=== PATIENT | male | born 1945 | race Hispanic/Latino ===

== ENCOUNTER 2021-03-21 10:48 | Emergency (ER) | payer OTHER ==
--- OUTSIDE RECORDS SUMMARY | 2021-03-21 10:56 | XMS REPORT | Continuity of Care Document ---
:1945 Author Organization [facility] t Address [address] [place] [address] Care Team Providers Name Role Phone Provider Primary Care Physician Unavailable RICK Attending Clinician Unavailable DR AMBAR Attending Clinician Unavailable DR KSENIA Attending Clinician Unavailable DR ADRIANNA Attending Clinician Unavailable DR Tyrone HAMPTON Attending Clinician Unavailable REGINA Attending Clinician Unavailable DR ERIC Attending Clinician Unavailable Tin LYNN TPhyllis Attending Clinician Christ Johnson Attending Clinician Unavailable Declan Britt MD Attending Clinician DR AMBAR Attending Clinician Unavailable Blaise Walker MA Attending Clinician Unavailable DR Aric TRACY Attending Clinician Unavailable DR RIYA Attending Clinician Unavailable DR KHALIDA Attending Clinician Unavailable DR Deborah SHAFFER Attending Clinician Unavailable DR LAKESHIA Attending Clinician Unavailable DR STEVE Attending Clinician Unavailable DR AREN Attending Clinician Unavailable DR CHERRI Attending Clinician Unavailable DR Mayda VILLALTA Attending Clinician Unavailable DR ALICE Attending Clinician Unavailable DR Selin RESTREPO Attending Clinician Unavailable DR AMBAR Admitting Clinician Unavailable KSENIA, Admitting Clinician Unavailable ADRIANNA, Admitting Clinician Unavailable DR Tyrone HAMPTON Admitting Clinician Unavailable , Admitting Clinician Unavailable AMBAR, Admitting Clinician Unavailable DR Aric TRACY Admitting Clinician Unavailable RIYA, Admitting Clinician Unavailable KHALIDA, Admitting Clinician Unavailable EDMUND, DR Cabrera Admitting Clinician Unavailable LAKESHIA, Admitting Clinician Unavailable STEVE, Admitting Clinician Unavailable AREN, Admitting Clinician Unavailable CHERRI, Admitting Clinician Unavailable AMBAR, DR Ohara Admitting Clinician Unavailable ALICE, Admitting Clinician Unavailable LAURO, DR Smallwood Admitting Clinician Unavailable Payers Payer Name Policy Type Policy Number Effective Date Expiration Date S ruth [facility] MEDICARE [id number] 2020 ADVANTAGE 00:00:00 UHC MEDICAREUHC [id number] 2020 [place] MEDICARE 00:00:00 [facility] [id number] /11/2020-PresentHM O [facility] [id number] [address] [facility] - - MEDICARE MGD 00:00:00 Medical Ce nter CAREUNITED MEDICARE [id number] 021-Present Problems Condition Condition Condition Status Onset Resolution Last Treating Co mments Source Name Details Category Date Date Treatment Clinician Date Bilateral Bilateral Disease Active [facility] - osteoarthr osteoarthr 00:00: Me dical itis of itis of 00 Center knee knee 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 Added automatic ally from request for surgery [id number] Arthritis Arthritis Problem Active [facility] knee of [facility] [place] [facility] ans Allergies, Adverse Reactions, Alerts Allergy Allergy Status Severity Reaction(s) Onset Inactive Treating Comm ents Source Name Type Date Date Clinician Acetusama Herrmannensi Active Itching, [place] ophen-Co ty to Swelling 12-05 Method i deine adverse 00:00: st reaction 00 s to drug Ibuprofe Drug Active Rash [facility] Allergy 11-14 [facility] - 00:00: Medical 00 Center Iodine Propensi Active Rash [place] ty to 11-22 Methodi adverse 00:00: st reaction 00 s to drug Iodine Drug Active Rash [facility] Allergy 11-22 [facility] - 00:00: Medical 00 Center Ibuprofe Allergy Active [place] [facility] Iodine Allergy Active [place] [facility] Tylenol- Allergy Active [place] codeine to da [facility] Family History Family Member Diagnosis Comments Start Date Stop Date Source Natural father Heart disease [place] [facility] Social History Social Habit Start Date Stop Date Quantity Comments Source History of tobacco Snuff User [place] [facility] Alcohol Std Drinks History [facility] odist Alcohol Binge Alcohol intake 2020-12-05 2020-12-05 Current [facility] thodist 00:00:00 00:00:00 non-drinker of alcohol (finding) Tobacco use and 2020-12-05 2020-12-[address] [facility] ethodist exposure 00:00:00 00:00:00 Alcohol Comment 2020-11-14 2020-11-14 social [facility] kes - 00:00:00 00:00:00 Medical Center History SDOH 2019-01-12 2019-01-12 1 [place] Meth odist Alcohol Frequency 00:00:00 00:00:00 Sex [birth year] At [birth year] [place] [facility] ethodist 00:00:00 00:00:00 Smoking Status Start Date Stop Date Source Former smoker 2020-12-05 00:00:00 2020-12-05 00:00:00 [place] [facility] Never smoker [facility]ations Ordered Filled Start Stop Current Ordering Indication Dosage Frequency Signature Comments Components Source Medication Medication Date Date Medication? Clinician (SIG) Name Name traMADol traMADol Yes REUBEN TAKE 1 U nivers HCl - 50 MG HCl - 50 MG 3-19 REGINA TABLET ity of Oral Tablet Oral Tablet 00:00: M.D. EVERY 4 TO [place] 00 6 HOURS Physici NEEDED. ans gabapentin 2020- No 100mg [id number] Take [address] [address] (NEURONTIN) 11-15 [id number] capsule [facility] - 100 MG 00:00: 23:59 3D (100 mg Medical capsule 00 :00 total) by Center mouth 3 (three) times daily for 30 days. traMADoL 2020- No 50mg Take [address] [facility] (ULTRAM) 50 11-15 tablet (50 L ukes - mg tablet 00:00: 23:59 mg total) Me dical 00 :00 by mouth Center every 8 (eight) hours as needed for Pain for up to 7 days. Max Daily Amount: 150 mg tamsulosin Yes .4mg QD Take 0.[address] [facility] (FLOMAX) 1-07 mg by [facility] - 0.4 mg Cap 11:01: mouth Medica l 24 hr 52 daily. Center capsule traMADoL 2020- No 50mg Take [address] [facility] (ULTRAM) 50 11-14 tablet (50 L ukes - mg tablet 00:00: 00:00 mg total) Me dical 00 :00 by mouth Center every 8 (eight) hours as needed for Pain for up to 7 days. Max Daily Amount: 150 mg gabapentin 2020- No 100mg [id number] Take [address] [facility] (NEURONTIN) 11-14 [id number] capsule [facility] - 100 MG 00:00: 00:00 3D (100 mg Medical capsule 00 :00 total) by Center mouth 3 (three) times daily for 30 days. tamsulosin Yes TAKE ONE Radha ston (FLOMAX) 1-25 (1) Methodi 0.4 mg 00:00: CAPSULE(S) st capsule 00 BY MOUTH TWICE A DAY. ibuprofen ibuprofen No ibuprofen [place] 600 mg 600 mg 600 mg da tablet TAKE tablet TAKE tablet Medical ONE (1) ONE (1) TAKE ONE Group TABLET(S) TABLET(S) (1) BY MOUTH BY MOUTH TABLET(S) THREE TIMES THREE TIMES BY MOUTH A DAY WITH A DAY WITH THREE FOOD. FOOD. TIMES A DAY WITH FOOD. Medrol Medrol No 1dose Medrol [place] (Michelet) 4 mg (Michelet) 4 mg pk(s) (Michelet) 4 mg da tablets in tablets in tablets in Medical a dose pack a dose pack a dose Group Take 1 dose Take 1 dose pack Take pk by oral pk by oral 1 dose pk route. route. by oral route. tramadol 50 tramadol 50 No tramadol [place] mg tablet mg tablet 50 mg da TAKE ONE TAKE ONE tablet Medic al (1) OR TWO (1) OR TWO TAKE ONE Group (2) (2) (1) OR TWO TABLET(S) TABLET(S) (2) BY MOUTH BY MOUTH TABLET(S) EVERY SIX EVERY SIX BY MOUTH HOURS HOURS EVERY SIX NEEDED FOR NEEDED FOR HOURS PAIN. PAIN. NEEDED FOR PAIN. Vital Signs Vital Name Observation Time Observation Value Comments Source BP Diastolic 2020-10-15 00:00:00 83 mm[Hg] [facility] Height 2020-10-15 00:00:00 68 [in_i] [facility] BMI (Body Mass 2020-10-15 00:00:00 28.3 kg/m2 [facility] Medical Index) Group BP Systolic 2020-10-15 00:00:00 141 mm[Hg] [facility] Body Weight 2020-10-15 00:00:00 186 [lb_av] [facility] Systolic blood 2020-12-05 19:23:29 145 mm[Hg] [place] n [facility] pressure Diastolic blood 2020-12-05 19:23:29 92 mm[Hg] Yonatan on [facility] pressure Heart rate 2020-12-05 19:23:29 91 /min Nirmal Moon Body temperature 2020-12-05 19:23:29 37 Lucille Benjie ton [facility] Respiratory rate 2020-12-05 19:23:29 18 /min Benjie Moon Oxygen saturation in 2020-12-05 19:23:29 95 /min Nirmal Moon Arterial blood by Pulse oximetry Systolic blood 2020-11-14 11:00:00 138 mm[Hg] [facility] Diastolic blood 2020-11-14 11:00:00 79 mm[Hg] [facility] S [facility] Heart rate 2020-11-14 11:00:00 82 /min [facility] Body temperature 2020-11-14 11:00:00 36.78 [facility] Body height 2020-11-14 11:00:00 172.7 cm [facility] Body weight 2020-11-14 11:00:00 83.462 kg [facility] BMI 2020-11-14 11:00:00 27.98 kg/m2 [facility] Procedures Procedure Date / Time Performed Performing Clinician Sour e XR KNEE 1 OR 2 VW 2020-12-05 20:56:10 Casandra Martinez [facility] RIGHT XR KNEE 3 VIEWS RIGHT 2020-11-14 11:21:[address] [facility] Plan of Care Planned Activity Planned Date Details Comments Source Future Scheduled 2021-06-08 INFLUENZA VACCINE [place] [facility] Test 00:00:00 [code = INFLUENZA VACCINE] Future Scheduled 2020-11-[address] [facility] - Test 00:00:00 (12+) [code = [facility] DEPRESSION SCREENING (12+)] Future Scheduled 2020-07-09 INFLUENZA VACCINE (#1) [facility] Test 00:00:00 [code = INFLUENZA Medical Ce nter VACCINE (#1)] Future Scheduled 2011 65+ PNEUMOCOCCAL [place] [facility] Test 00:00:00 VACCINE (1 of 1 - PPSV23) [code = 65+ PNEUMOCOCCAL VACCINE (1 of 1 - PPSV23)] Future Scheduled 2011 PNEUMOCOCCAL 65+ YRS [facility] - Test 00:00:00 (1 of 1 - [facility] [id number] PCV13) [code = PNEUMOCOCCAL 65+ YRS (1 of 1 - [id number] PCV13)] Future Scheduled 1996 COLONOSCOPY SCREENING [place] [facility] Test 00:00:00 [code = COLONOSCOPY SCREENING] Future Scheduled 1996 SHINGLES VACCINES (#1) H iw[place] [facility] Test 00:00:00 [code = SHINGLES VACCINES (#1)] Future Scheduled 1996 SHINGLES VACCINES ([address] [facility] - Test 00:00:00 of 2) [code = SHINGLES Medic al Center VACCINES (1 of 2)] Future Scheduled 1965 DTAP/TDAP/TD VACCINES [facility] - Test 00:00:00 (1 - Tdap) [code = Medical C enter DTAP/TDAP/TD VACCINES (1 - Tdap)] Future Scheduled 1964 Hepatitis C screening [place] [facility] Test 00:00:00 (procedure) [code = 128723129] Future Scheduled 1964 HEPATITIS C SCREENING [facility] - Test 00:00:00 [code = HEPATITIS C Medical Center SCREENING] Future Scheduled 1962 COVID-19 VACCINE (1) Radha ston [facility] Test 00:00:00 [code = COVID-19 VACCINE (1)] Future Scheduled [address] [facility] es - Test 00:00:00 malignant [facility] colon (procedure) [code = 081855233] Encounters Start End Encounter Admission Attending Care Care Encounter Source Date/Time Date/Time Type Type Clinicians Facility Department ID 2021-03-15 [id number] [place] 03:18:11 [facility] 2020-09-23 Inpatient C VILLALTA, [facility] [id number] [facility] 09:29:00 YOLY [facility] 2020-07-29 Inpatient C KSENIA [facility] [id number] [place] 09:30:00 , SMITHA [facility] 2020-07-17 Inpatient C CARLTON RODAS [facility] [id number] [facility] 09:00:00 Medical [place] 2021-03-06 2021-03-06 Outpatient E BERTA [facility] [id number] [facility] 12:30:00 13:15:00 REUBEN Medica l [place] 2021-01-24 2021-01-24 AppointSYD [facility] [id number] [facility] 11:30:00 11:30:00 sal ALEXIS [facility] renetta TAPIA M.D. [place] ALEXIS Orthopedic [facility] 2021-01-09 2021-01-09 Outpatient E , [facility] [id number] [facility] 14:17:00 14:17:00 WASIM Medica l [place] 2020-12-05 2020-12-05 Emergency [facility] [id number] [place] 00:00:00 00:00:00 ANGELA [address] 2020-10-30 2020-10-30 Outpatient E AMBAR, [facility] [id number] [facility] 16:54:00 17:50:00 ADELIA Medica l [place] 2020-10-19 2020-10-19 Outpatient E BERTA, [facility] [id number] [facility] 16:38:00 17:58:00 REUBEN Medica l [place] 2020-10-15 2020-10-15 [facility] - [id number] M at[place]or 00:00:00 00:00:00 Discovery fallon Velazquez MD: [address] [place] [address] Group [facility] - [address], [place] [address] , Ph. 2020-10-10 2020-10-10 Outpatient E DEMARCUS, [facility] [id number] [facility] 09:29:00 10:25:00 ZURI Medica [facility] [place] 2020-09-30 2020-09-30 Outpatient E VANESSA RITTER [facility] [id number] [facility] 15:29:00 16:16:00 Medica l [place] 2020-09-09 2020-09-09 Outpatient C CARLTON RODAS [facility] [id number] [facility] 10:52:00 10:52:00 Medica l Center 2020-08-27 2020-08-27 Outpatient E KHALIDA ALTAF [facility] [id number] [facility] 06:54:00 09:20:00 Medica l Center 2020-08-23 2020-08-23 Outpatient E DEMARCUS, [facility] [id number] [facility] 17:25:00 18:55:00 ZURI Medica l [place] 2020-08-18 2020-08-18 Outpatient C KSENIA [facility] [id number] [facility] 09:55:00 23:59:00 [facility] 2020-08-05 Outpatient E EDMUND [facility] [id number] [facility] 12:22:00 12:40:00 AUDRA [facility] 2020-07-25 2020-07-25 Outpatient E GILLIAN ASHER [facility] [id number] [facility] 17:09:00 17:35:00 Medica [facility] 2020-07-16 2020-07-16 Outpatient E GAXIOLAALTAF Guillen [facility] [id number] [facility] 22:52:00 23:59:00 Medica [facility] 2020-06-05 2020-06-05 Outpatient E BA, VANESSA [facility] [id number] [facility] 16:30:00 18:28:00 Medica [facility] 2020-05-21 2020-05-21 Outpatient E WILSONPATRICIA [facility] [id number] [facility] 23:05:00 23:50:00 Medica [facility] 2020-05-08 2020-05-08 Outpatient E GILLIAN ASHER [facility] [id number] [facility] 01:22:00 06:18:00 Medica [facility] 2020-05-03 2020-05-03 Outpatient E TONYABBEYSegundo [facility] [id number] [facility] 11:20:00 11:45:00 HASAN Medica [facility] 2020-03-13 2020-03-13 Outpatient E ALTAF GAXIOLA [facility] [id number] [facility] 17:01:00 18:28:00 Medica [facility] 2020-02-08 2020-02-08 Outpatient C IOANA HARLEY [facility] [id number] [facility] 08:10:00 23:59:00 Medica l [place] 2020-01-25 2020-01-25 Outpatient E STEVE PATRICIA [facility] [id number] [facility] 16:57:00 18:48:00 Medica [facility] 2020-01-03 2020-01-03 Outpatient E TRISTA VILLALTA [facility] [id number] [facility] 12:57:00 14:29:00 Medica l [place] 2019-11-07 2019-11-07 Outpatient E BA, VANESSA [facility] [id number] [facility] 07:30:00 09:44:00 Medica l [place] 2019-10-31 2019-11-02 Outpatient E JENKINS, [facility] TELE [id number] [facility] 14:22:00 19:25:00 YAJAIRA Medic al [place] 2019-10-03 2019-10-03 Outpatient E SHEIKH [facility] [id number] [facility] 14:58:00 15:56:00 WASIM Medica [facility] [place] 2019-08-20 2019-08-20 Outpatient E TRACY, [facility] [id number] [facility] 10:26:00 10:48:00 ZURI [facility]ica [facility] [place] 2019-08-18 2019-08-18 Outpatient E AMBAR [facility] [id number] [facility] 11:35:00 12:35:00 ADELIA [facility]ica [facility] [place] 2019-08-06 2019-08-06 Outpatient E KHALIDA ALTAF [facility] [id number] [facility] 13:41:00 14:07:00 Medica l [place] 2019-07-14 2019-07-14 Emergency E TRISTA VILLALTA [facility] [id number] [facility] 15:17:00 16:00:00 Medica l [place] 2019-07-03 2019-07-05 Outpatient E JENKINS, [facility] TELE [id number] [facility] 18:54:00 13:04:00 YAJAIRA Medic al [place] 2019-06-02 2019-06-02 Outpatient E LAURO, [facility] [id number] [facility] 17:20:00 20:15:00 ROBERT [facility]ica [facility] [place] 2019-06-01 2019-06-02 Outpatient E REYES, [facility] [id number] [facility] 23:13:00 00:40:00 WAS Medica [facility] [place] 2019-04-16 2019-04-18 Outpatient E CHERRI BRANDYLEONID [facility] TELE [id number] [facility] 22:30:00 10:18:00 Medica l Center 2019-04-12 2019-04-12 Outpatient E TRISTA VILLALTA [facility] [id number] [facility] 09:42:00 10:50:00 Medica l Center 2019-03-30 2019-03-30 Outpatient E KHALIDA ALTAF [facility] [id number] [facility] 19:53:00 20:20:00 Medica l Center 2019-03-14 2019-03-14 Outpatient E BA, VANESSA [facility] [id number] [facility] 01:52:00 02:47:00 Medica [facility] 2019-03-02 2019-03-03 Outpatient E IOANA HARLEY [facility] TELE [id number] [facility] 17:04:00 14:38:00 Medica [facility] 2019-01-30 2019-01-30 [facility] E [facility] [id number] [facility] 14:37:00 16:18:00 Medica [facility] 2019-01-12 2019-01-12 Outpatient E BA, VANESSA [facility] [id number] [facility] 17:07:00 19:30:00 [facility] 2018-12-16 2018-12-16 Outpatient E VILLALTATRISTA [facility] [id number] [facility] 15:29:00 17:11:00 [facility] 2018-12-06 2018-12-06 Outpatient C IOANA HARLEY [facility] [id number] [facility] 10:34:00 23:59:00 [facility] 2018-11-30 2018-11-30 Outpatient E AMBAR [facility]CC [id number] [facility] 13:14:00 14:05:00 [facility] 2018-11-29 2018-11-29 Outpatient E AMBAR [facility] [id number] [facility] 09:19:00 12:15:00 [facility] 2018-11-25 2018-11-25 Outpatient E BA, VANESSA [facility] [id number] [facility] 16:27:00 18:00:00 Medica [facility] 2018-11-12 2018-11-12 Outpatient E TRISTA VILLALTA [facility] [id number] [facility] 11:12:00 15:15:00 Medica [facility] 2018-11-07 2018-11-10 Inpatient E IOANA HARLEY [facility] TELE [id number] [facility] 14:45:00 16:31:00 Medica l [place] 2018-10-30 2018-10-30 Outpatient E ALTAF GAXIOLA [facility] [id number] [facility] 19:27:00 20:36:00 Medica l [place] 2018-09-03 2018-09-03 Outpatient E SHEIKH [facility] [id number] [facility] 11:42:00 13:00:00 WASIM Medica [facility] [place] 2018-08-20 2018-08-20 Outpatient E DEMARCUS, [facility] [id number] [facility] 18:47:00 20:45:00 ZURI Medica l [place] 2018-07-24 2018-07-25 Outpatient E TRISTA VILLALTA [facility] [id number] [facility] 22:53:00 02:40:00 Medica [facility] 2018-07-22 2018-07-22 Outpatient E VANESSA RITTER [facility]CC [id number] [facility] 11:36:00 14:30:00 Medica l [place] 2018-06-23 2018-06-24 Outpatient E IOANA HARLEY [facility] TELE [id number] [facility] 13:40:00 17:45:00 [facility] Results Test Description Test Time Test Comments Results Result Comments Source [facility] 8 Panel *OW* giovanni 2021-03-06 13:12:00 Test Item Value Reference Range Interpretation Comme nts GLUCOSE (test code = GGUL) 129 mg/dL 73-118 H BUN (test code = GBUN) 11 mg/dL 7-22 CREATININE (test code = GCRE) 0.7 mg/dL 0.6-1.2 CK TOTAL (test code = GCK) 80 U/L 39-380 SODIUM (test code = GNA+) 138 mmol/L 128-145 POTASSIUM (test code = GK+) 3.8 mmol/L 3.6-5.1 CHLORIDE (test code = GCL-) 112 mmol/L 98-108 H TCO2 (test code = GTC02) 28 mmol/L 18-33 CBC (INCLUDES AUTOMATED DIFFERENTIAL) *2021-03-06 13:03:00 Test Item Value Reference Range Interpretation Comments WBC (test code = WBC) 5.1 10\\S\\3/uL 9.4-34.0 L RBC (test code = RBC) 4.69 10\\S\\6/uL 3.90-5.50 HGB (test code = HBG) 13.8 g/dL 14.5-22.5 L HCT (test code = HCT) 43.2 % 45.0-67.0 L MCV (test code = MCV) 92.1 fL 95.0-121.0 L MCH (test code = MCH) 29.4 pg 25.0-35.0 MCHC (test code = MCHC) 31.9 g/dL 29.0-37.0 RDW (test code = RDW) 13.7 % 11.5-14.5 PLT (test code = PLT) 209 10\\S\\3/uL 84-474 MPV (test code = OMPV) 8.1 fL 6.2-10.2 NEUTROP # (test code = NE#) 2.6 10\\S\\3/uL 1.4-8.0 LYMPH # (test code = LY#) 2.1 10\\S\\3/uL 1.2-4.0 MID # (test code = GMID#) 0.4 10\\S\\3/uL 0.0-1.1 GRAN % (test code = GRA%) 51.2 % 35.0-73.0 LYMPH % (test code = GLY%) 41.0 % 20.0-55.0 MID % (test code = GMID%) 7.8 % 0.0-10.0 [U] XRAY KNEE 4 OR MORE VWS RIGHT [id number] 12:01:00Images acquired, not reported on this accession number.[facility] Knee 1 Or 2 Vw [id number] 20:59:39Hm Interface, Radiology Results Incoming - 12/05/2020 9:02 PM CST EXAMINATION: XR KNEE 1 OR 2 VW RIGHTCLINICAL HISTORY: knee pain medialCOMPARISON: None.IMPRESSION:1.There is no evidence of fracture or acute osseous pathology.2.Mild to moderate osteoarthritis consists of moderate lateral and patellofemoral joint space loss with mild medial joint space loss and minimal osteophytosis.RM-MPHYDWLHouston MethodistXR knee 3 views right 2020-11-14 11:21:00Mild osteoarthritis bilateral knees.Standing PA, lateral patellofemoral view of the right knee is reviewed.On the standing PA view, there is medial joint space narrowing on the left knee with subchondral sclerosis. On the right knee there is some mild subchondral sclerosis and some mild joint space narrowing both medially and laterally.There is some osteopenia noted. There is no fracture or dislocation seen. The soft tissues are unremarkable. He may have slight valgus of the right knee in slight varus of the left knee consistent with a windswept deformity that is developing earlyCH[facility] 13 *OW* [id number] 07:32:00 Test Item Value Reference Range Interpretation Comments GLUCOSE (test code = GGUL) 113 mg/dL 73-118 BUN (test code = GBUN) 14 mg/dL 7-22 CREATININE (test code = GCRE) 0.7 mg/dL 0.6-1.2 URIC ACID (test code = GUA) 4.7 mg/dL 3.6-8.0 CALCIUM (test code = GCL+) 9.0 mg/dL 8.0-10.3 ALBUMIN (test code = GALB) 3.9 g/dL 3.5-5.5 PROTEIN (test code = GTP) 7.0 g/dL 6.4-8.1 ALT (test code = GALT) 23 U/L 10-47 AST (test code = SHARIFA) 25 U/L 11-38 ALK PHOS (test code = GALP) 82 U/L 53-128 BILI TOTAL (test code = GTBIL) 0.8 mg/dL 0.2-1.6 GGT (test code = GGGT) 40 U/L 5-65 AMYLASE (test code = GAMY) 83 U/L 14-97 URINALYSIS W/O MICROSCOPICOW2020-08-27 07:24:00 Test Item Value Reference Range Interpretation Comments COLOR (test code = Yellow YELLOW COLU) CLARITY (test code = Clear CLEAR CLA) GLUCOSE UR (test Negative NEGATIVE code = UA GLUCOSE) BILI UR (test code = Negative NEGATIVE BILE) KETONES UR (test Negative NEGATIVE code = MARY) SP GRAVITY (test 1.025 1.005-1.030 code = SPGR) PH UR (test code = 6.0 4.5-8.0 PH) PROTEIN UR (test Negative NEGATIVE code = PU) NITRITE UR (test Negative NEGATIVE code = NITRITE) UROBIL UR (test code 0.2 E.U./dL = GUROQ) UROBIL UR (test code UROBILINOGEN = GUROQC) REFERENCE RANGE 0.2 - 1.0 EU/dL BLOOD UR (test code Trace-intact NEGATIVE = UA BLOOD) LEUK ES UR (test Negative NEGATIVE code = LEUK) CBC (INCLUDES AUTOMATED DIFFERENTIAL) *2020-08-27 07:23:00 Test Item Value Reference Range Interpretation Comments WBC (test code = WBC) 7.5 10\\S\\3/uL 4.5-11.0 RBC (test code = RBC) 4.49 10\\S\\6/uL 3.80-5.80 HGB (test code = HBG) 14.1 g/dL 14.0-18.0 HCT (test code = HCT) 42.0 % 35.0-46.0 MCV (test code = MCV) 93.6 fL 80.0-94.0 MCH (test code = MCH) 31.4 pg 27.0-31.0 H MCHC (test code = MCHC) 33.6 g/dL 32.0-36.0 RDW (test code = RDW) 13.6 % 11.5-14.5 PLT (test code = PLT) 188 10\\S\\3/uL 130-400 MPV (test code = OMPV) 8.7 fL 6.2-10.2 NEUTROP # (test code = NE#) 4.9 10\\S\\3/uL 2.0-8.0 LYMPH # (test code = LY#) 2.0 10\\S\\3/uL 1.2-4.0 MID # (test code = GMID#) 0.5 10\\S\\3/uL 0.0-1.1 GRAN % (test code = GRA%) 65.7 % 35.0-73.0 LYMPH % (test code = GLY%) 27.1 % 20.0-55.0 MID % (test code = GMID%) 7.2 % 0.0-10.0 BRAIN NATRIURETIC PEPTIDE OW2020-06-05 18:00:00 Test Item Value Reference Range Interpretation Comments BNP (test code = OBNP) 21 pg/mL <=100 M[facility]te 8 Panel *OW* [id number] 18:00:00 Test Item Value Reference Range Interpretation Comments GLUCOSE (test code = GGUL) 173 mg/dL 73-118 H BUN (test code = GBUN) 14 mg/dL 7-22 CREATININE (test code = GCRE) 0.9 mg/dL 0.6-1.2 CK TOTAL (test code = GCK) 89 U/L 39-380 SODIUM (test code = GNA+) 144 mmol/L 128-145 POTASSIUM (test code = GK+) 3.7 mmol/L 3.6-5.1 CHLORIDE (test code = GCL-) 111 mmol/L 98-108 H TCO2 (test code = GTC02) 22 mmol/L 18-33 GENERAL CHEMISTRY 13 *OW* [id number] 18:00:00 Test Item Value Reference Range Interpretation Comments GLUCOSE (test code = GGUL) 173 mg/dL 73-118 H BUN (test code = GBUN) 14 mg/dL 7-22 CREATININE (test code = GCRE) 0.9 mg/dL 0.6-1.2 URIC ACID (test code = GUA) 4.7 mg/dL 3.6-8.0 CALCIUM (test code = GCL+) 8.9 mg/dL 8.0-10.3 ALBUMIN (test code = GALB) 3.7 g/dL 3.5-5.5 PROTEIN (test code = GTP) 6.7 g/dL 6.4-8.1 ALT (test code = GALT) 118 U/L 10-47 H AST (test code = SHARIFA) 88 U/L 11-38 H ALK PHOS (test code = GALP) 118 U/L 53-128 BILI TOTAL (test code = GTBIL) 0.6 mg/dL 0.2-1.6 GGT (test code = GGGT) 160 U/L 5-65 H AMYLASE (test code = GAMY) 92 U/L 14-97 TROPONIN I OW2020-06-05 17:59:00 Test Item Value Reference Range Interpretation Comments TROPONIN I (test code = A84) <0.050 ng/mL 0.000-0.050 CBC (INCLUDES AUTOMATED DIFFERENTIAL) *2020-06-05 17:20:00 Test Item Value Reference Range Interpretation Comments WBC (test code = WBC) 5.2 10\\S\\3/uL 4.5-11.0 RBC (test code = RBC) 4.31 10\\S\\6/uL 3.80-5.80 HGB (test code = HBG) 13.4 g/dL 14.0-18.0 L HCT (test code = HCT) 40.1 % 35.0-46.0 MCV (test code = MCV) 93.1 fL 80.0-94.0 MCH (test code = MCH) 31.1 pg 27.0-31.0 H MCHC (test code = MCHC) 33.4 g/dL 32.0-36.0 RDW (test code = RDW) 12.8 % 11.5-14.5 PLT (test code = PLT) 117 10\\S\\3/uL 130-400 L MPV (test code = OMPV) 9.0 fL 6.2-10.2 NEUTROP # (test code = NE#) 2.8 10\\S\\3/uL 2.0-8.0 LYMPH # (test code = LY#) 2.0 10\\S\\3/uL 1.2-4.0 MID # (test code = GMID#) 0.5 10\\S\\3/uL 0.0-1.1 GRA % (test code = GRA%) 53.4 % 35.0-73.0 LYMPH % (test code = GLY%) 37.9 % 20.0-55.0 MID % (test code = GMID%) 8.7 % 0.0-10.0 PROTHROMBIN TIME i-STAT OW2020-06-05 17:19:00 Test Item Value Reference Range Interpretation Comments PT (test code = <10.0 s 10.0-13.0 PT1) INR (test code = <0.9 INR) INRH (test code = SUGGESTED INRH) THERAPEUTIC RANGE FOR INR: 2.5 - 3.5 For Patients with Prosthetic Valves or Patients with recurrent Thromboembolic Events 2.0 - 3.0 For Most Other Applications SARS-CoV (RAPID ANTIGEN)2020-05-08 04:20:00 Test Item Value Reference Range Interpretation Comments SARS-CoV (ANTIGEN) NEGATIVE NEGATIVE (test code = COVAG) COVID AG (test This test has been code = COVAGC) marketed under the FDA Emergency Use Authorization (EUA) to meet challenges of the COVID-19 pandemic. The validation standards normally enforced by the FDA and the [employer] [employer] (CAP) are more stringent than those required for this test. Therefore, the result should be interpreted with caution and close attention to other clinical and epidemiological data [facility]te 8 Panel *OW* [id number] 03:21:00 Test Item Value Reference Range Interpretation Comments GLUCOSE (test code = GGUL) 133 mg/dL 73-118 H BUN (test code = GBUN) 16 mg/dL 7-22 CREATININE (test code = GCRE) 0.8 mg/dL 0.6-1.2 CK TOTAL (test code = GCK) 101 U/L 39-380 SODIUM (test code = GNA+) 144 mmol/L 128-145 POTASSIUM (test code = GK+) 3.5 mmol/L 3.6-5.1 L CHLORIDE (test code = GCL-) 109 mmol/L 98-108 H TCO2 (test code = GTC02) 27 mmol/L 18-33 DRUGS OF ABUSE*OW*2020-05-08 02:38:00 Test Item Value Reference Range Interpretation Comments DRUG SCRN (test code URINE DRUG SCREEN = HDOA) This is an unconfirmed screening result and should not be used for non-medical purposes PHENCYCLID (test Negative NEGATIVE code = GPCP) BENZODIAZE (test Negative NEGATIVE code = GBZO) COCAINE (test code = Negative NEGATIVE GCOC) AMPHETAMIN (test Negative NEGATIVE code = GAMP) THC (test code = Negative NEGATIVE GTHC) OPIATES (test code = Negative NEGATIVE ROBBY) BARBITURAT (test Negative NEGATIVE code = GBAR) TCA (test code = Negative NEGATIVE GTCA) DOAH (test code = URINE DRUG DOAH) SCREEN CUT OFF VALUES Amphetamines 1000 ng/mL Barbituates 300 ng/mL Benzodiazepines 300 ng/mL Cocaine 300 ng/mL Opiates 300 ng/mL Phencyclidine 25 ng/mL THC 50 ng/mL Tricyclic Antidepressants 1000 ng/mL BRAIN NATRIURETIC PEPTIDE OW2020-05-08 02:34:00 Test Item Value Reference Range Interpretation Comments BNP (test code = OBNP) 8 pg/mL <=100 TROPONIN I OW2020-05-08 02:30:00 Test Item Value Reference Range Interpretation Comments TROPONIN I (test code = A84) <0.050 ng/mL 0.000-0.050 D-DIMER TRIAGE OW2020-05-08 02:30:00 Test Item Value Reference Range Interpretation Comments D-DIMER (test code = 194 ng/mL D-DU <=599 GDDI) D-DIMER COMMENT (test *Level to rule out code = DDCOM) DVT or PE: <235 ng/mL D-DU* GENERAL CHEMISTRY 13 *OW* [id number] 02:30:00 Test Item Value Reference Range Interpretation Comments GLUCOSE (test code = GGUL) 133 mg/dL 73-118 H BUN (test code = GBUN) 18 mg/dL 7-22 CREATININE (test code = GCRE) 1.2 mg/dL 0.6-1.2 URIC ACID (test code = GUA) 5.6 mg/dL 3.6-8.0 CALCIUM (test code = GCL+) 9.7 mg/dL 8.0-10.3 ALBUMIN (test code = GALB) 3.9 g/dL 3.5-5.5 PROTEIN (test code = GTP) 7.5 g/dL 6.4-8.1 ALT (test code = GALT) 32 U/L 10-47 AST (test code = SHARIFA) 38 U/L 11-38 ALK PHOS (test code = GALP) 96 U/L 53-128 BILI TOTAL (test code = GTBIL) 0.5 mg/dL 0.2-1.6 GGT (test code = GGGT) 59 U/L 5-65 AMYLASE (test code = GAMY) 60 U/L 14-97 URINALYSIS W/O MICROSCOPICOW2020-05-08 02:20:00 Test Item Value Reference Range Interpretation Comments COLOR (test code = Yellow YELLOW COLU) CLARITY (test code = Clear CLEAR CLA) GLUCOSE UR (test Negative NEGATIVE code = UA GLUCOSE) BILI UR (test code = Negative NEGATIVE BILE) KETONES UR (test Negative NEGATIVE code = MARY) SP GRAVITY (test 1.025 1.005-1.030 code = SPGR) PH UR (test code = 6.0 4.5-8.0 PH) PROTEIN UR (test Negative NEGATIVE code = PU) NITRITE UR (test Negative NEGATIVE code = NITRITE) UROBIL UR (test code 0.2 E.U./dL = GUROQ) UROBIL UR (test code UROBILINOGEN = GUROQC) REFERENCE RANGE 0.2 - 1.0 EU/dL BLOOD UR (test code Trace-intact NEGATIVE = UA BLOOD) LEUK ES UR (test Negative NEGATIVE code = LEUK) DIRECT STREP GROUP AOW2020-05-08 02:16:00 Test Item Value Reference Range Interpretation Comments STREP A AG (test code = STREP) NEGATIVE NEGATIVE INFLUENZA A AND B OW2020-05-08 02:16:00 Test Item Value Reference Range Interpretation Comments INFLUENZ A (test code = INFA) NEGATIVE NEGATIVE INFLUENZ B (test code = INFB) NEGATIVE NEGATIVE CBC (INCLUDES AUTOMATED DIFFERENTIAL) *2020-05-08 02:15:00 Test Item Value Reference Range Interpretation Comments WBC (test code = WBC) 5.5 10\\S\\3/uL 4.5-11.0 RBC (test code = RBC) 4.92 10\\S\\6/uL 3.80-5.80 HGB (test code = HBG) 15.0 g/dL 14.0-18.0 HCT (test code = HCT) 46.5 % 35.0-46.0 H MCV (test code = MCV) 94.5 fL 80.0-94.0 H MCH (test code = MCH) 30.5 pg 27.0-31.0 MCHC (test code = MCHC) 32.3 g/dL 32.0-36.0 RDW (test code = RDW) 13.4 % 11.5-14.5 PLT (test code = PLT) 219 10\\S\\3/uL 130-400 MPV (test code = OMPV) 9.4 fL 6.2-10.2 NEUTROP # (test code = NE#) 2.9 10\\S\\3/uL 2.0-8.0 LYMPH # (test code = LY#) 2.2 10\\S\\3/uL 1.2-4.0 MID # (test code = GMID#) 0.4 10\\S\\3/uL 0.0-1.1 GRA % (test code = GRA%) 52.9 % 35.0-73.0 LYMPH % (test code = GLY%) 39.5 % 20.0-55.0 MID % (test code = GMID%) 7.6 % 0.0-10.0 DRUG ABUSE PANEL 9 -[id number] 13:30:00 Test Item Value Reference Interpretation Comments Range MARIJUANA (test POSITIVE A code = 40492426) DELTA 9 THC (test negative code = 95979202) DELTA 9 THC CARBOXY 9 ng/mL This res ult was generated ACID (test code = using LC-M S/MS; anequivalent 52700447) method to GC/MS . AMPHETAMINES (test negative code = 10936229) BARBITURATES (test negative code = 72898226) BENZODIAZEPINES negative (test code = 89097400) COCAINE METABOLITES negative (test code = 56076215) OPIATES (test code negative = 13837042) METHADONE (test negative code = 82242785) PROPOXYPHENE (test negative code = 22687397) PCP (PHENCYCLIDINE) negative (test code = 29341626) COMMENT (test code SEE NOTE The submi tted serum specimen = [id number]) was tested at t heimmunoassay screen cutoffs listed below and, ifPOSITIVE , were confirmed by GC /MS at the listedconfirmat ory test cutoffs. Cutof fs units are ng/mL.Drug Clas s/ Initial Test Confirmatory Drug Level Test Leve lAmphetamines 100 Am phetamine 50 Methamphetamine 50 MDM A ("Ecstacy") 50 MDA 50Barbiturat es 100 Amobarbital 100 Butabarbital 100 Butalbital 100 Pen tobarbital 100 Phenobarbital 100 Sec obarbital 100Benzodiazepi omer 100 Alprazolam 10 Oxa zepam 50 Lorazepam 50 Desalkylfluraze kal 50 Nor diazepam 50Cocaine metab olites 100 Cocaine 20 Steve zoylecgonine 20 Ecgoninemethyle ster 20 Richie aethylene 20Marijuana met abolites 30 THC 1 Car boxy-THC 5Methadone 25 50Op iates 100 Morph ine 50 Codeine 50 Hydrocodone 50 Hydromorphone 50 Oxycodone 50Phen cyclidine 10 5Propoxyphene m etab. 50 200Th is test was developed and i ts analytical performancechar acteristics have been deter mined by [employer] s [place], [place]. It hasnot been tez ared or approved by the U.S. Food and DrugAdministrat ion. This assay has been validated pursuantto the CLIA regulations and is used for clinicalpurpose s.TEST PERFORMED AT:[id number] [place] [id number] MAG CROSS MD,PHD COMPREHENSIVE METABOLIC TINEO *WW*2020-04-05 05:28:00 Test Item Value Reference Range Interpretation Comments GLUCOSE (test code = 115 mg/dL 75-100 H 06D) SODIUM (test code = 139 mmol/L 136-145 01A) POTASSIUM (test code = 3.7 mmol/L 3.6-5.1 01B) CHLORIDE (test code = 108 mmol/L 98-107 H 04A) CO2 (test code = 02A) 24 mmol/L 22-32 ANION GAP (test code = 10.7 mmol/L ANG) BUN (test code = 05D) 15 mg/dL 7-18 CREATININE (test code 0.8 mg/dL 0.7-1.3 = 03E) GFR (test code = GFR) 88 mL/min/1.73m\\S\\2 >=90 L GFR 103 mL/min/1.73m\\S\\2 >=90 (test code = GFRAA) EGFR (test code = eGFR BY CKD-EPI EGFR) CALCULATION IS NOT RECOMMENDED FOR PATIENTS UNDER 18 YEARS OF AGE. BUN/CREA (test code = 19 12-20 BCR) CALCIUM (test code = 8.1 mg/dL 8.3-9.5 L 09D) BILI TOTAL (test code 0.5 mg/dL 0.2-1.0 = 11A) PROTEIN (test code = 7.0 g/dL 6.4-8.2 07D) ALBUMIN (test code = 3.3 g/dL 3.5-4.8 L 08D) GLOBULIN (test code = 3.7 g/dL 1.5-3.8 GLB) ALB/GLOB (test code = 0.9 1.0-2.6 L AGRR) ALK PHOS (test code = 93 IU/L 42-121 35A) AST (test code = 30A) 24 IU/L <=42 ALT (test code = 31A) 41 IU/L <=78 CBC (INCLUDES AUTOMATED DIFFERENTIAL)*[id number] 05:15:00 Test Item Value Reference Range Interpretation Comments WBC (test code = WBC) 4.9 10\\S\\3/uL 4.5-11.0 RBC (test code = RBC) 4.47 10\\S\\6/uL 3.80-5.80 HGB (test code = HBG) 13.4 g/dL 14.0-18.0 L HCT (test code = HCT) 40.8 % 35.0-46.0 MCV (test code = MCV) 91.3 fL 80.0-94.0 MCH (test code = MCH) 30.0 pg 27.0-31.0 MCHC (test code = MCHC) 32.8 g/dL 32.0-36.0 RDW (test code = RDW) 12.1 % 11.5-14.5 PLT (test code = PLT) 177 10\\S\\3/uL 130-400 MPV (test code = MPV) 10.9 fL 9.4-12.4 NEUTROP # (test code = NE#) 2.6 10\\S\\3/uL 2.0-8.0 LYMPH # (test code = LY#) 1.6 10\\S\\3/uL 1.2-4.0 MONOCYTE # (test code = MO#) 0.4 10\\S\\3/uL 0.0-1.1 EOSINOPH # (test code = EO#) 0.2 10\\S\\3/uL 0.0-0.7 BASOPHIL # (test code = BA#) 0.1 10\\S\\3/uL 0.0-0.3 IG # (test code = IG#) 0.01 10\\S\\3/uL 0.00-0.06 NRBC # (test code = NRBC#) 0.00 10\\S\\3/uL 0.00-0.01 NEUTROPH % (test code = NE%) 53.1 % 35.0-73.0 LYMPH % (test code = LY%) 33.2 % 20.0-55.0 MONO % (test code = MO%) 8.6 % 2.5-10.0 EOSINOPH % (test code = EO%) 3.9 % 0.0-5.0 BASOPHIL % (test code = BA%) 1.0 % 0.0-2.0 IG % (test code = IG%) 0.2 % 0.0-0.8 NRBC% (test code = NRBC%) 0.0 % 0.0-0.2 MANDIFF (test code = WMDIFF) NO NO RBC MORPH (test code = NORMAL WRBCMOR) TROPONIN I OW2020-04-03 14:49:00 Test Item Value Reference Range Interpretation Comments TROPONIN I (test code = A84) <0.050 ng/mL 0.000-0.050 MetyLyte 8 Panel *OW* [id number] 14:43:00 Test Item Value Reference Range Interpretation Comments GLUCOSE (test code = GGUL) 140 mg/dL 73-118 H BUN (test code = GBUN) 13 mg/dL 7-22 CREATININE (test code = GCRE) 1.1 mg/dL 0.6-1.2 CK TOTAL (test code = GCK) 105 U/L 39-380 SODIUM (test code = GNA+) 139 mmol/L 128-145 POTASSIUM (test code = GK+) 3.8 mmol/L 3.6-5.1 CHLORIDE (test code = GCL-) 110 mmol/L 98-108 H TCO2 (test code = GTC02) 23 mmol/L 18-33 CBC (INCLUDES AUTOMATED DIFFERENTIAL) *2020-04-03 14:36:00 Test Item Value Reference Range Interpretation Comments WBC (test code = WBC) 6.9 10\\S\\3/uL 4.5-11.0 RBC (test code = RBC) 4.72 10\\S\\6/uL 3.80-5.80 HGB (test code = HBG) 14.7 g/dL 14.0-18.0 HCT (test code = HCT) 44.6 % 35.0-46.0 MCV (test code = MCV) 94.4 fL 80.0-94.0 H MCH (test code = MCH) 31.1 pg 27.0-31.0 H MCHC (test code = MCHC) 33.0 g/dL 32.0-36.0 RDW (test code = RDW) 12.9 % 11.5-14.5 PLT (test code = PLT) 174 10\\S\\3/uL 130-400 MPV (test code = OMPV) 8.7 fL 6.2-10.2 NEUTROP # (test code = NE#) 4.8 10\\S\\3/uL 2.0-8.0 LYMPH # (test code = LY#) 1.8 10\\S\\3/uL 1.2-4.0 MID # (test code = GMID#) 0.4 10\\S\\3/uL 0.0-1.1 GRA % (test code = GRA%) 68.9 % 35.0-73.0 LYMPH % (test code = GLY%) 25.9 % 20.0-55.0 MID % (test code = GMID%) 5.2 % 0.0-10.0 MetyLyte 8 Panel *OW* [id number] 18:05:00 Test Item Value Reference Range Interpretation Comments GLUCOSE (test code = GGUL) 124 mg/dL 73-118 H BUN (test code = GBUN) 15 mg/dL 7-22 CREATININE (test code = GCRE) 1.1 mg/dL 0.6-1.2 CK TOTAL (test code = GCK) 133 U/L 39-380 SODIUM (test code = GNA+) 145 mmol/L 128-145 POTASSIUM (test code = GK+) 4.4 mmol/L 3.6-5.1 CHLORIDE (test code = GCL-) 106 mmol/L 98-108 TCO2 (test code = GTC02) 27 mmol/L 18-33 GENERAL CHEMISTRY 13 *OW* [id number] 18:05:00 Test Item Value Reference Range Interpretation Comments GLUCOSE (test code = GGUL) 124 mg/dL 73-118 H BUN (test code = GBUN) 15 mg/dL 7-22 CREATININE (test code = GCRE) 1.1 mg/dL 0.6-1.2 URIC ACID (test code = GUA) 6.4 mg/dL 3.6-8.0 CALCIUM (test code = GCL+) 9.2 mg/dL 8.0-10.3 ALBUMIN (test code = GALB) 4.1 g/dL 3.5-5.5 PROTEIN (test code = GTP) 7.6 g/dL 6.4-8.1 ALT (test code = GALT) 34 U/L 10-47 AST (test code = SHARIFA) 35 U/L 11-38 ALK PHOS (test code = GALP) 95 U/L 53-128 BILI TOTAL (test code = GTBIL) 0.6 mg/dL 0.2-1.6 GGT (test code = GGGT) 65 U/L 5-65 AMYLASE (test code = GAMY) 75 U/L 14-97 TROPONIN I OW2020-01-25 17:50:00 Test Item Value Reference Range Interpretation Comments TROPONIN I (test code = A84) <0.050 ng/mL 0.000-0.050 BRAIN NATRIURETIC PEPTIDE OW2020-01-25 17:50:00 Test Item Value Reference Range Interpretation Comments BNP (test code = OBNP) 45 pg/mL <=100 INFLUENZA A AND B OW2020-01-25 17:33:00 Test Item Value Reference Range Interpretation Comments INFLUENZ A (test code = INFA) NEGATIVE NEGATIVE INFLUENZ B (test code = INFB) NEGATIVE NEGATIVE DIRECT STREP GROUP AOW2020-01-25 17:33:00 Test Item Value Reference Range Interpretation Comments STREP A AG (test code = STREP) NEGATIVE NEGATIVE URINALYSIS W/O MICROSCOPICOW2020-01-25 17:33:00 Test Item Value Reference Range Interpretation Comments COLOR (test code = DK YELLOW YELLOW A COLU) CLARITY (test code = Clear CLEAR CLA) GLUCOSE UR (test Negative NEGATIVE code = UA GLUCOSE) BILI UR (test code = 1+ NEGATIVE A BILE) KETONES UR (test Negative NEGATIVE code = MARY) SP GRAVITY (test >=1.030 1.005-1.030 code = SPGR) PH UR (test code = 5.5 4.5-8.0 PH) PROTEIN UR (test Trace NEGATIVE code = PU) NITRITE UR (test Negative NEGATIVE code = NITRITE) UROBIL UR (test code 0.2 E.U./dL = GUROQ) UROBIL UR (test code UROBILINOGEN = GUROQC) REFERENCE RANGE 0.2 - 1.0 EU/dL BLOOD UR (test code Negative NEGATIVE = UA BLOOD) LEUK ES UR (test Negative NEGATIVE code = LEUK) CBC (INCLUDES AUTOMATED DIFFERENTIAL) *2020-01-25 17:30:00 Test Item Value Reference Range Interpretation Comments WBC (test code = WBC) 5.0 10\\S\\3/uL 4.5-11.0 RBC (test code = RBC) 4.45 10\\S\\6/uL 3.80-5.80 HGB (test code = HBG) 13.2 g/dL 14.0-18.0 L HCT (test code = HCT) 41.2 % 35.0-46.0 MCV (test code = MCV) 92.5 fL 80.0-94.0 MCH (test code = MCH) 29.7 pg 27.0-31.0 MCHC (test code = MCHC) 32.0 g/dL 32.0-36.0 RDW (test code = RDW) 13.0 % 11.5-14.5 PLT (test code = PLT) 171 10\\S\\3/uL 130-400 MPV (test code = OMPV) 8.7 fL 6.2-10.2 NEUTROP # (test code = NE#) 2.9 10\\S\\3/uL 2.0-8.0 LYMPH # (test code = LY#) 1.7 10\\S\\3/uL 1.2-4.0 MID # (test code = GMID#) 0.4 10\\S\\3/uL 0.0-1.1 GRA % (test code = GRA%) 58.3 % 35.0-73.0 LYMPH % (test code = GLY%) 33.8 % 20.0-55.0 MID % (test code = GMID%) 7.9 % 0.0-10.0 PROTHROMBIN TIME i-STAT OW2020-01-25 17:30:00 Test Item Value Reference Range Interpretation Comments PT (test code = <10.0 s 10.0-13.0 PT1) INR (test code = <0.9 INR) INRH (test code = SUGGESTED INRH) THERAPEUTIC RANGE FOR INR: 2.5 - 3.5 For Patients with Prosthetic Valves or Patients with recurrent Thromboembolic Events 2.0 - 3.0 For Most Other Applications TROPONIN I OW2020-01-03 13:31:00 Test Item Value Reference Range Interpretation Comments TROPONIN I (test code = A84) <0.050 ng/mL 0.000-0.050 MetyLyte 8 Panel *OW* [id number] 13:30:00 Test Item Value Reference Range Interpretation Comments GLUCOSE (test code = GGUL) 122 mg/dL 73-118 H BUN (test code = GBUN) 17 mg/dL 7-22 CREATININE (test code = GCRE) 1.0 mg/dL 0.6-1.2 CK TOTAL (test code = GCK) 213 U/L 39-380 SODIUM (test code = GNA+) 143 mmol/L 128-145 POTASSIUM (test code = GK+) 3.4 mmol/L 3.6-5.1 L CHLORIDE (test code = GCL-) 107 mmol/L 98-108 TCO2 (test code = GTC02) 27 mmol/L 18-33 CBC (INCLUDES AUTOMATED DIFFERENTIAL) *2020-01-03 13:23:00 Test Item Value Reference Range Interpretation Comments WBC (test code = WBC) 3.4 10\\S\\3/uL 4.5-11.0 L RBC (test code = RBC) 4.27 10\\S\\6/uL 3.80-5.80 HGB (test code = HBG) 12.9 g/dL 14.0-18.0 L HCT (test code = HCT) 39.6 % 35.0-46.0 MCV (test code = MCV) 92.8 fL 80.0-94.0 MCH (test code = MCH) 30.2 pg 27.0-31.0 MCHC (test code = MCHC) 32.6 g/dL 32.0-36.0 RDW (test code = RDW) 12.9 % 11.5-14.5 PLT (test code = PLT) 265 10\\S\\3/uL 130-400 MPV (test code = OMPV) 8.2 fL 6.2-10.2 NEUTROP # (test code = NE#) 1.7 10\\S\\3/uL 2.0-8.0 L LYMPH # (test code = LY#) 1.4 10\\S\\3/uL 1.2-4.0 MID # (test code = GMID#) 0.3 10\\S\\3/uL 0.0-1.1 GRA % (test code = GRA%) 51.3 % 35.0-73.0 LYMPH % (test code = GLY%) 41.0 % 20.0-55.0 MID % (test code = GMID%) 7.7 % 0.0-10.0 PROTHROMBIN TIME i-STAT OW2020-01-03 13:13:00 Test Item Value Reference Range Interpretation Comments PT (test code = 12.0 s 10.0-13.0 PT1) INR (test code = 1.0 INR) INRH (test code = SUGGESTED INRH) THERAPEUTIC RANGE FOR INR: 2.5 - 3.5 For Patients with Prosthetic Valves or Patients with recurrent Thromboembolic Events 2.0 - 3.0 For Most Other Applications TROPONIN I OW2019-11-07 09:24:00 Test Item Value Reference Range Interpretation Comments TROPONIN I (test code = A84) 0.000 ng/mL 0.000-0.045 TROPONIN I OW2019-11-07 08:18:00 Test Item Value Reference Range Interpretation Comments TROPONIN I (test code = A84) <0.050 ng/mL 0.000-0.050 [employer] 8 Panel *OW* [id number] 08:08:00 Test Item Value Reference Range Interpretation Comments GLUCOSE (test code = GGUL) 135 mg/dL 73-118 H BUN (test code = GBUN) 12 mg/dL 7-22 CREATININE (test code = GCRE) 0.8 mg/dL 0.6-1.2 CK TOTAL (test code = GCK) 85 U/L 39-380 SODIUM (test code = GNA+) 144 mmol/L 128-145 POTASSIUM (test code = GK+) 3.5 mmol/L 3.6-5.1 L CHLORIDE (test code = GCL-) 110 mmol/L 98-108 H TCO2 (test code = GTC02) 28 mmol/L 18-33 XR CHEST 1 VIEW PORTABLE *OW*2019-11-07 08:05:41S26CVYF: XR CHEST 1 VIEW PORTABLE *OW*HISTORY: [id number]: Chest painCOMPARISON: 10/31/19FINDINGS: The lungs are clear. No pleural effusion or pneumothorax. The cardiacsilhouette is within normal limits. No acute osseous abnormalities.IMPRESSION:No acute cardiopulmonary disease.CBC (INCLUDES AUTOMATED DIFFERENTIAL) *2019-11-07 07:54:00 Test Item Value Reference Range Interpretation Comments WBC (test code = WBC) 5.3 10\\S\\3/uL 4.5-11.0 RBC (test code = RBC) 4.90 10\\S\\6/uL 3.80-5.80 HGB (test code = HBG) 14.6 g/dL 14.0-18.0 HCT (test code = HCT) 45.0 % 35.0-46.0 MCV (test code = MCV) 91.8 fL 80.0-94.0 MCH (test code = MCH) 29.8 pg 27.0-31.0 MCHC (test code = MCHC) 32.4 g/dL 32.0-36.0 RDW (test code = RDW) 12.8 % 11.5-14.5 PLT (test code = PLT) 161 10\\S\\3/uL 130-400 MPV (test code = OMPV) 9.2 fL 6.2-10.2 NEUTROP # (test code = NE#) 2.5 10\\S\\3/uL 2.0-8.0 LYMPH # (test code = LY#) 2.3 10\\S\\3/uL 1.2-4.0 MID # (test code = GMID#) 0.5 10\\S\\3/uL 0.0-1.1 GRA % (test code = GRA%) 47.7 % 35.0-73.0 LYMPH % (test code = GLY%) 43.7 % 20.0-55.0 MID % (test code = GMID%) 8.6 % 0.0-10.0 NM LUNG (V/Q ) SCAN W [id number] 16:09:36Radionuclide ventilation/perfusion lung scanLocation Code: [id number]: [id number]: PainCOMPARISON: Chest radiograph dated 10/31/19TECHNIQUE: Routine images of the lungs were obtained after inhalation of 9.6mCi of Xe133 gas and intravenous injection of 6.0 mCi 99 M technetium MAA.FINDINGS: Ventilation images demonstrate retention of radiopharmaceutical inbilateral lungs on washout images.Perfusion imagesdemonstrate no moderate or large segmental defects.IMPRESSION: Low probability of PE.BASIC METABOLIC [id number] 04:42:00 Test Item Value Reference Range Interpretation Comments GLUCOSE (test code = 06D) 104 mg/dL 75-100 H SODIUM (test code = 01A) 141 mmol/L 136-145 POTASSIUM (test code = 01B) 3.8 mmol/L 3.6-5.1 CHLORIDE (test code = 04A) 110 mmol/L 98-107 H CO2 (test code = 02A) 26 mmol/L 22-32 ANION GAP (test code = ANG) 8.8 mmol/L BUN (test code = 05D) 13 mg/dL 7-18 CREATININE (test code = 03E) 0.8 mg/dL 0.7-1.3 BUN/CREA (test code = BCR) 16 12-20 CALCIUM (test code = 09D) 8.3 mg/dL 8.3-9.5 CBC (INCLUDES AUTOMATED DIFFERENTIAL)2019-11-02 04:30:00 Test Item Value Reference Range Interpretation Comments WBC (test code = WBC) 5.0 10\\S\\3/uL 4.5-11.0 RBC (test code = RBC) 4.29 10\\S\\6/uL 3.80-5.80 HGB (test code = HBG) 12.9 g/dL 14.0-18.0 L HCT (test code = HCT) 37.7 % 35.0-46.0 MCV (test code = MCV) 87.9 fL 80.0-94.0 MCH (test code = MCH) 30.1 pg 27.0-31.0 MCHC (test code = MCHC) 34.2 g/dL 32.0-36.0 RDW (test code = RDW) 13.0 % 11.5-14.5 PLT (test code = PLT) 153 10\\S\\3/uL 130-400 MPV (test code = MPV) 11.1 fL 9.4-12.4 NEUTROP # (test code = NE#) 2.6 10\\S\\3/uL 2.0-8.0 LYMPH # (test code = LY#) 1.7 10\\S\\3/uL 1.2-4.0 MONOCYTE # (test code = MO#) 0.4 10\\S\\3/uL 0.0-1.1 EOSINOPH # (test code = EO#) 0.2 10\\S\\3/uL 0.0-0.7 BASOPHIL # (test code = BA#) 0.0 10\\S\\3/uL 0.0-0.3 IG # (test code = IG#) 0.01 10\\S\\3/uL 0.00-0.06 NRBC # (test code = NRBC#) 0.00 10\\S\\3/uL 0.00-0.01 NEUTROPH % (test code = NE%) 52.9 % 35.0-73.0 LYMPH % (test code = LY%) 34.7 % 20.0-55.0 MONO % (test code = MO%) 7.6 % 2.5-10.0 EOSINOPH % (test code = EO%) 3.8 % 0.0-5.0 BASOPHIL % (test code = BA%) 0.8 % 0.0-2.0 IG % (test code = IG%) 0.2 % 0.0-0.8 NRBC% (test code = NRBC%) 0.0 % 0.0-0.2 MANDIFF (test code = MDIFF) NO NO RBC MORPH (test code = RBCMOR) NORMAL U/S VENOUS DOPPLER TIBURCIO LOW [id number] 15:46:37LOCATION: [id number]: 74-year-old male who presents with leg painCOMMENT: Sonographic imaging of t he venous anatomy in both of this patient's legs wasobtained utilizing grayscale, color-flow, and Doppler waveform imagingmodalities.The common femoral veins, superficial femoral veins, popliteal veins, posteriortibial veins, anterior tibial veins, and peroneal veins were included in thisstudy..The amalia wyatt exhibits normal compressibility on grayscale study. No suspiciousfilling defects are seen on the color flow study. Appropriate waveform responseas are noted on the Doppler study during augmentation maneuvers and duringquiet respiration. IMPRESSION:There is no sonographic evidence of venous thrombosis in either of thispatient's legs.BASIC METABOLIC [id number] 06:21:00 Test Item Value Reference Range Interpretation Comments GLUCOSE (test code = 06D) 107 mg/dL 75-100 H SODIUM (test code = 01A) 141 mmol/L 136-145 POTASSIUM (test code = 01B) 3.8 mmol/L 3.6-5.1 CHLORIDE (test code = 04A) 111 mmol/L 98-107 H CO2 (test code = 02A) 26 mmol/L 22-32 ANION GAP (test code = ANG) 7.8 mmol/L BUN (test code = 05D) 17 mg/dL 7-18 CREATININE (test code = 03E) 0.8 mg/dL 0.7-1.3 BUN/CREA (test code = BCR) 21 12-20 H CALCIUM (test code = 09D) 8.2 mg/dL 8.3-9.5 L CBC (INCLUDES AUTOMATED DIFFERENTIAL)2019-11-01 06:04:00 Test Item Value Reference Range Interpretation Comments WBC (test code = WBC) 5.9 10\\S\\3/uL 4.5-11.0 RBC (test code = RBC) 4.22 10\\S\\6/uL 3.80-5.80 HGB (test code = HBG) 12.7 g/dL 14.0-18.0 L HCT (test code = HCT) 37.3 % 35.0-46.0 MCV (test code = MCV) 88.4 fL 80.0-94.0 MCH (test code = MCH) 30.1 pg 27.0-31.0 MCHC (test code = MCHC) 34.0 g/dL 32.0-36.0 RDW (test code = RDW) 13.2 % 11.5-14.5 PLT (test code = PLT) 167 10\\S\\3/uL 130-400 MPV (test code = MPV) 11.8 fL 9.4-12.4 NEUTROP # (test code = NE#) 3.4 10\\S\\3/uL 2.0-8.0 LYMPH # (test code = LY#) 1.8 10\\S\\3/uL 1.2-4.0 MONOCYTE # (test code = MO#) 0.5 10\\S\\3/uL 0.0-1.1 EOSINOPH # (test code = EO#) 0.2 10\\S\\3/uL 0.0-0.7 BASOPHIL # (test code = BA#) 0.0 10\\S\\3/uL 0.0-0.3 IG # (test code = IG#) 0.02 10\\S\\3/uL 0.00-0.06 NRBC # (test code = NRBC#) 0.00 10\\S\\3/uL 0.00-0.01 NEUTROPH % (test code = NE%) 57.1 % 35.0-73.0 LYMPH % (test code = LY%) 30.5 % 20.0-55.0 MONO % (test code = MO%) 8.5 % 2.5-10.0 EOSINOPH % (test code = EO%) 2.9 % 0.0-5.0 BASOPHIL % (test code = BA%) 0.7 % 0.0-2.0 IG % (test code = IG%) 0.3 % 0.0-0.8 NRBC% (test code = NRBC%) 0.0 % 0.0-0.2 MANDIFF (test code = MDIFF) NO NO RBC MORPH (test code = RBCMOR) NORMAL TROPONIN I OW2019-10-31 14:01:00 Test Item Value Reference Range Interpretation Comments TROPONIN I (test code = A84) 0.000 ng/mL 0.000-0.045 BRAIN NATRIURETIC PROTEIN OW2019-10-31 13:49:00 Test Item Value Reference Range Interpretation Comments BNP (test code = OBNP) 30 pg/mL <=100 D-DIMER TRIAGE OW2019-10-31 13:42:00 Test Item Value Reference Range Interpretation Comments D-DIMER (test code = 104 ng/mL D-DU <=599 GDDI) D-DIMER COMMENT (test *Level to rule out code = DDCOM) DVT or PE: <235 ng/mL D-DU* CHEM8+ i-STAT OW2019-10-31 13:40:00 Test Item Value Reference Range Interpretation Comments SODIUM (test code = LEONORA) 141 mmol/L 138-146 POTASSIUM (test code = KI) 4.8 mmol/L 3.5-4.9 CHLORIDE (test code = CLI) 106 mmol/L 98-109 CA IONIZED (test code = ICAI) 1.25 mmol/L 1.12-1.32 GLUCOSE (test code = GLUI) 103 mg/dL 75-100 H TCO2 (test code = TCO2) 30 mmol/L 24-29 H BUN (test code = BUN1) 14 mg/dL 8-26 CREATININE (test code = CREAI) 0.9 mg/dL 0.6-1.3 ANION GAP (test code = GANG) 11.0 mmol/L HGB (test code = MHB) 14.6 g/dL 12.0-17.0 HCT (test code = MHCT) 43.0 % 38.0-51.0 CT HEAD W/O CONTRAST *OW*2019-10-31 13:28:45CT Brain without contrast.Location code:[id number] HISTORY: [id number]: Injury of headComparison: 12/16/18Technique: Routine unenhanced CT brain was performed and submitted in 5mm axialimages. One or more of the following dose reduction techniques were used:Automated exposure control, adjustment of the mA and or KV according to patientsize, and/or utilization of iterative reconstruction technique. DLP:1130.77mGy- cm.Findings:There is no acute intracranial hemorrhage or extra-axial collection. There isno hydrocephalus, midline shift, or space occupying mass. There is generalized volume loss with compensatory enlargement of the corticalsulci and cerebral ventricles. Mild periventricular low attenuation isconsistent with chronic small vessel ischemic changes. Karimi-white matterdifferentiation is otherwise normal with no definite CT evidence of an acuteinfarct.The cranial vault and skull base are intact. The paranasal sinuses and mastoidair cells are well-aerated.IMPRESSION: Mild chronic small vesselischemic changes with otherwise no acute intracranialabnormality.XR CHEST 1 VIEW PORTABLE *OW* 2019-10-31 13:20:17EXAM: XR CHEST 1 VIEW PORTABLE *OW*.LOCATION: D4.HISTORY: [id number]: Chest pain.COMPARISON: Radiograph dated 07/03/19.TECHNIQUE: Single AP view of the chest was obtained. FINDINGS:The heart is normal in size. Calcifications are seen at the aortic arch.Reticulonodular opacities are seen in bilateral upper lobes. Mild linearbibasilar opacities are present. Remote appearing left rib fractures are againnoted. No acute osseous abnormality is identified.IMPRESSION:Reticulonodular opacities in bilateral upper lobes, likely secondary to aninflammatory/infectious process.Mild bibasilar atelectasis.XR FINGER(S) LEFT COMPLETE 3VWS *OW*2019-10-03 15:18:57EXAMINATION: XR FINGER(S) LEFT COMPLETE 3VWS *OW*.LOCATION: D4.HISTORY: [id number]: Traumatic injury.C OMPARISON: None.TECHNIQUE: AP, lateral, and oblique views of the left fourth finger wereobtained.FINDINGS:No acute fracture or dislocation is identified. There is joint space narrowingand marginal osteophyte formation at the DIP joints. Soft tissue structuresappear intact.IMPRESSION:No acute osseous abnormality is identified.XR ANKLE LEFT COMPLETE 3 VIEWS *OW*2019-08-18 12:16:43 Exam: X-ray left ankle 3 viewsHISTORY: Pain after injury.Location: [id number]:Mild to moderate arthrosis is noted with chronic osteochondral defect involvingthe medial talar dome without acute fractureor dislocation. Soft tissueswelling is present with vascular calcifications along with plantar calcan ealenthesophyte.Impression:1. 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 There is moderate joint space narrowing withsubchondral sclerosis and osteophyte formation. Small effusion noted.IMPRESSION: Moderately osteoarthritis with small effusion and otherwise noacute radiographic abnormality. No significant change from 03/14/19.XR KNEE RIGHT 3 [id number] 15:42:30Right knee, 3 viewsLocation Code: [id number] HISTORY: Swelling and injuryComparison: 04/18/19COMMENTS: AP, lateral, and oblique views of the right knee demonstrate no acutefracture or malalignment. There is moderate joint space narrowing withsubchondral sclerosis and osteophyte formation. The soft tissues areunremarkable.IMPRESSION: Moderate osteoarthritis with otherwise no acute radiographicabnormality.CHEM8+ i-STAT OW2019-07-05 08:38:00 Test Item Value Reference Range Interpretation Comments SODIUM (test code = LEONORA) 141 mmol/L 138-146 POTASSIUM (test code = KI) 3.6 mmol/L 3.5-4.9 CHLORIDE (test code = CLI) 103 mmol/L 98-109 CA IONIZED (test code = ICAI) 1.12 mmol/L 1.12-1.32 GLUCOSE (test code = GLUI) 121 mg/dL 75-100 H TCO2 (test code = TCO2) 25 mmol/L 24-29 BUN (test code = BUN1) 17 mg/dL 8-26 CREATININE (test code = CREAI) 0.9 mg/dL 0.6-1.3 ANION GAP (test code = GANG) 17.0 mmol/L HGB (test code = MHB) 12.9 g/dL 12.0-17.0 HCT (test code = MHCT) 38.0 % 38.0-51.0 U/S VENOUS DOPPLER TIBURCIO LOW EXT *OW*2019-07-04 15:53:37Bilateral lower extremity venous DopplerLocation code: [id number] HISTORY: D-dimer above reference r angeTechnique: Grayscale, color, and Doppler spectral waveform analysis of the deepveins of the bilateral lower extremity deep veins was performed.FINDINGS: Echogenic debris is present within noncompressible right superficial femoralartery. The common femoral proximally as well as the popliteal, poste riortibial, and anterior tibial arteries distally are patent and compressible withnormal color Doppler flow.Normal color flow and compressibility is present within left common femoral,superficial femoral, popliteal and posterior tibial veins.IMPRESSION:1. Partially occlusive DVT within the right superficial femoral vein.2. Negative for DVT on the left.TROPONIN I i-STAT OW2019-07-04 04:20:00 Test Item Value Reference Range Interpretation Comments TROPONIN I (test code = A84) 0.000 ng/mL 0.000-0.045 TROPONIN I i-STAT OW2019-07-03 22:07:00 Test Item Value Reference Range Interpretation Comments TROPONIN I (test code = A84) 0.000 ng/mL 0.000-0.045 [id number] 17:43:00 Test Item Value Reference Range Interpretation Comments D-DIMER (test code = 251 ng/mL D-DU 0-234 H DDI) D-DIMER COMMENT (test *Level to rule out code = DDCOM) DVT or PE: <235 ng/mL D-DU* BRAIN NATRIURETIC PROTEIN OW2019-07-03 16:56:00 Test Item Value Reference Range Interpretation Comments BNP (test code = OBNP) 53 pg/mL 0-50 H TROPONIN I i-STAT OW2019-07-03 16:46:00 Test Item Value Reference Range Interpretation Comments TROPONIN I (test code = A84) 0.020 ng/mL 0.000-0.045 XR CHEST 1 VIEW PORTABLE *OW*2019-07-03 16:45:01Portable AP chest, 1 viewLocation Code: [id number] HISTORY: Chest painCOMPARISON: 06/02/19COMMENT: Mi ld atelectasis is present within the lung bases. There is no consolidation oreffusion. Mild cardiomegaly is stable. The bones are intact.IMPRESSION: 1. Mild bibasilar atelectasis.2. Stable mild cardiomegaly.CHEM8+ i-STAT OW 2019-07-03 16:34:00 Test Item Value Reference Range Interpretation Comments SODIUM (test code = LEONORA) 142 mmol/L 138-146 POTASSIUM (test code = KI) 4.6 mmol/L 3.5-4.9 CHLORIDE (test code = CLI) 105 mmol/L 98-109 CA IONIZED (test code = ICAI) 1.26 mmol/L 1.12-1.32 GLUCOSE (test code = GLUI) 145 mg/dL 75-100 H TCO2 (test code = TCO2) 30 mmol/L 24-29 H BUN (test code = BUN1) 18 mg/dL 8-26 CREATININE (test code = CREAI) 0.9 mg/dL 0.6-1.3 ANION GAP (test code = GANG) 13.0 mmol/L HGB (test code = MHB) 13.6 g/dL 12.0-17.0 HCT (test code = MHCT) 40.0 % 38.0-51.0 PROTHROMBIN TIME i-STAT OW2019-07-03 16:31:00 Test Item Value Reference Range Interpretation Comments PT (test code = 13.7 s 10.0-13.0 H PT1) INR (test code = 1.1 INR) INRH (test code = SUGGESTED INRH) THERAPEUTIC RANGE FOR INR: 2.5 - 3.5 For Patients with Prosthetic Valves or Patients with recurrent Thromboembolic Events 2.0 - 3.0 For Most Other Applications CBC (INCLUDES AUTOMATED DIFFERENTIAL) *2019-07-03 16:30:00 Test Item Value Reference Range Interpretation Comments WBC (test code = WBC) 6.0 10\\S\\3/uL 4.5-11.0 RBC (test code = RBC) 4.75 10\\S\\6/uL 3.80-5.80 HGB (test code = HBG) 14.4 g/dL 14.0-18.0 HCT (test code = HCT) 43.4 % 35.0-46.0 MCV (test code = MCV) 91.4 fL 80.0-94.0 MCH (test code = MCH) 30.3 pg 27.0-31.0 MCHC (test code = MCHC) 33.2 g/dL 32.0-36.0 RDW (test code = RDW) 12.4 % 11.5-14.5 PLT (test code = PLT) 214 10\\S\\3/uL 130-400 MPV (test code = OMPV) 9.1 fL 6.2-10.2 NEUTROP # (test code = NE#) 4.2 10\\S\\3/uL 2.0-8.0 LYMPH # (test code = LY#) 1.6 10\\S\\3/uL 1.2-4.0 MID # (test code = GMID#) 0.2 10\\S\\3/uL 0.0-1.1 GRA % (test code = GRA%) 70.2 % 35.0-73.0 LYMPH % (test code = GLY%) 26.3 % 20.0-55.0 MID % (test code = GMID%) 3.5 % 0.0-10.0 BRAIN NATRIURETIC PROTEIN OW2019-06-02 20:01:00 Test Item Value Reference Range Interpretation Comments BNP (test code = OBNP) 67 pg/mL 0-50 H TROPONIN I i-STAT OW2019-06-02 19:48:00 Test Item Value Reference Range Interpretation Comments TROPONIN I (test code = A84) 0.000 ng/mL 0.000-0.045 CHEM8+ i-STAT OW2019-06-02 18:31:00 Test Item Value Reference Range Interpretation Comments SODIUM (test code = LEONORA) 144 mmol/L 138-146 POTASSIUM (test code = KI) 3.6 mmol/L 3.5-4.9 CHLORIDE (test code = CLI) 106 mmol/L 98-109 CA IONIZED (test code = ICAI) 1.25 mmol/L 1.12-1.32 GLUCOSE (test code = GLUI) 104 mg/dL 75-100 H TCO2 (test code = TCO2) 28 mmol/L 24-29 BUN (test code = BUN1) 13 mg/dL 8-26 CREATININE (test code = CREAI) 1.0 mg/dL 0.6-1.3 ANION GAP (test code = GANG) 15.0 mmol/L HGB (test code = MHB) 12.9 g/dL 12.0-17.0 HCT (test code = MHCT) 38.0 % 38.0-51.0 CBC (INCLUDES AUTOMATED DIFFERENTIAL) *2019-06-02 18:12:00 Test Item Value Reference Range Interpretation Comments WBC (test code = WBC) 8.4 10\\S\\3/uL 4.5-11.0 RBC (test code = RBC) 4.46 10\\S\\6/uL 3.80-5.80 HGB (test code = HBG) 13.5 g/dL 14.0-18.0 L HCT (test code = HCT) 41.3 % 35.0-46.0 MCV (test code = MCV) 92.5 fL 80.0-94.0 MCH (test code = MCH) 30.3 pg 27.0-31.0 MCHC (test code = MCHC) 32.7 g/dL 32.0-36.0 RDW (test code = RDW) 13.1 % 11.5-14.5 PLT (test code = PLT) 224 10\\S\\3/uL 130-400 MPV (test code = OMPV) 8.6 fL 6.2-10.2 NEUTROP # (test code = NE#) 4.9 10\\S\\3/uL 2.0-8.0 LYMPH # (test code = LY#) 3.0 10\\S\\3/uL 1.2-4.0 MID # (test code = GMID#) 0.5 10\\S\\3/uL 0.0-1.1 GRA % (test code = GRA%) 58.7 % 35.0-73.0 LYMPH % (test code = GLY%) 35.3 % 20.0-55.0 MID % (test code = GMID%) 6.0 % 0.0-10.0 XR CHEST 1 VIEW *OW*2019-06-02 18:09:59Portable AP chest, 1 viewLocation Code: [id number] HISTORY: [id number]: Chest painCOMPARISON: 06/02/19at 12:04 AMCOMMENT: Patchy right lower lobe infiltrate is slightly progressive in theinterval. The heart size is mildly enlarged with mild central congestion.Osseous structures are intact.IMPRESSION: Patchy right lower lobe infiltrate slightly progressive in theinterval.XR CHEST 1 VIEW PORTABLE *OW*2019-06-02 00:19:55DICTATION LOCATION: [id number]: Male, 73 years of age. Chest painEXAM: CHEST X-RAY, ONE VIEW. COMPARISON: 04/16/2019COMMENT: Frontal view of the chest is provided. Calcified plaque seen in theaorta. No focal infiltrate, consolidation, mass lesion, or effusion is seen.Cardiac silhouette is enlarged. No acute bony abnormalities.IMPRESSION: Cardiomegaly. No acute infiltrate.BRAIN NATRIURETIC PROTEIN OW2019-06-01 23:52:00 Test Item Value Reference Range Interpretation Comments BNP (test code = OBNP) 60 pg/mL 0-50 H CBC (INCLUDES AUTOMATED DIFFERENTIAL) *2019-06-01 23:49:00 Test Item Value Reference Range Interpretation Comments WBC (test code = WBC) 6.2 10\\S\\3/uL 4.5-11.0 RBC (test code = RBC) 4.46 10\\S\\6/uL 3.80-5.80 HGB (test code = HBG) 13.6 g/dL 14.0-18.0 L HCT (test code = HCT) 41.5 % 35.0-46.0 MCV (test code = MCV) 93.1 fL 80.0-94.0 MCH (test code = MCH) 30.5 pg 27.0-31.0 MCHC (test code = MCHC) 32.8 g/dL 32.0-36.0 RDW (test code = RDW) 13.7 % 11.5-14.5 PLT (test code = PLT) 165 10\\S\\3/uL 130-400 MPV (test code = OMPV) 9.1 fL 6.2-10.2 NEUTROP # (test code = NE#) 3.9 10\\S\\3/uL 2.0-8.0 LYMPH # (test code = LY#) 1.9 10\\S\\3/uL 1.2-4.0 MID # (test code = GMID#) 0.4 10\\S\\3/uL 0.0-1.1 GRA % (test code = GRA%) 63.0 % 35.0-73.0 LYMPH % (test code = GLY%) 30.8 % 20.0-55.0 MID % (test code = GMID%) 6.2 % 0.0-10.0 TROPONIN I i-STAT OW2019-06-01 23:42:00 Test Item Value Reference Range Interpretation Comments TROPONIN I (test code = A84) 0.000 ng/mL 0.000-0.045 CHEM8+ i-STAT OW2019-06-01 23:28:00 Test Item Value Reference Range Interpretation Comments SODIUM (test code = LEONORA) 142 mmol/L 138-146 POTASSIUM (test code = KI) 3.9 mmol/L 3.5-4.9 CHLORIDE (test code = CLI) 110 mmol/L 98-109 H CA IONIZED (test code = ICAI) 1.16 mmol/L 1.12-1.32 GLUCOSE (test code = GLUI) 126 mg/dL 75-100 H TCO2 (test code = TCO2) 24 mmol/L 24-29 BUN (test code = BUN1) 14 mg/dL 8-26 CREATININE (test code = CREAI) 0.9 mg/dL 0.6-1.3 ANION GAP (test code = GANG) 13.0 mmol/L HGB (test code = MHB) 13.3 g/dL 12.0-17.0 HCT (test code = MHCT) 39.0 % 38.0-51.0 XR KNEE RIGHT 3 [id number] 09:05:25EXAMINATION: XR KNEE RIGHT 3 VIEWS.LOCATION: S17.HISTORY: Knee pain.COMPARISON: None.FINDINGS/IMPRESS ION:Three views of RIGHT knee demonstrates no suprapatellar joint effusion.Extensive atheroscleroticvascular calcifications. No radiographic evidence ofacute osseous abnormality. Moderate tricompartmental degenerative changes.There is a questionable sclerotic region in distal femur, partially imagedapproximately measuring 2 x 1.1 x 1.2 cm, indeterminate, may be projectional,correlate with dedicated femur radiographs.COMPREHENSIVE METABOLIC [id number] 06:07:00 Test Item Value Reference Range Interpretation Comments GLUCOSE (test code = 06D) 100 mg/dL 75-100 SODIUM (test code = 01A) 140 mmol/L 136-145 POTASSIUM (test code = 01B) 4.0 mmol/L 3.6-5.1 CHLORIDE (test code = 04A) 109 mmol/L 98-107 H CO2 (test code = 02A) 26 mmol/L 22-32 ANION GAP (test code = ANG) 9.0 mmol/L BUN (test code = 05D) 17 mg/dL 7-18 CREATININE (test code = 03E) 0.8 mg/dL 0.7-1.3 BUN/CREA (test code = BCR) 21 12-20 H CALCIUM (test code = 09D) 8.2 mg/dL 8.3-9.5 L BILI TOTAL (test code = 11A) 0.5 mg/dL 0.2-1.0 PROTEIN (test code = 07D) 6.7 g/dL 6.4-8.2 ALBUMIN (test code = 08D) 3.4 g/dL 3.5-4.8 L GLOBULIN (test code = GLB) 3.3 g/dL 1.5-3.8 ALB/GLOB (test code = AGRR) 1.0 1.0-2.6 ALK PHOS (test code = 35A) 83 IU/L 42-121 AST (test code = 30A) 16 IU/L <=42 ALT (test code = 31A) 25 IU/L <=78 CBC (INCLUDES AUTOMATED DIFFERENTIAL)2019-04-18 05:46:00 Test Item Value Reference Range Interpretation Comments WBC (test code = WBC) 5.0 10\\S\\3/uL 4.5-11.0 RBC (test code = RBC) 4.65 10\\S\\6/uL 3.80-5.80 HGB (test code = HBG) 13.8 g/dL 14.0-18.0 L HCT (test code = HCT) 41.4 % 35.0-46.0 MCV (test code = MCV) 89.0 fL 80.0-94.0 MCH (test code = MCH) 29.7 pg 27.0-31.0 MCHC (test code = MCHC) 33.3 g/dL 32.0-36.0 RDW (test code = RDW) 12.7 % 11.5-14.5 PLT (test code = PLT) 217 10\\S\\3/uL 130-400 MPV (test code = MPV) 11.0 fL 9.4-12.4 NEUTROP # (test code = NE#) 2.5 10\\S\\3/uL 2.0-8.0 LYMPH # (test code = LY#) 1.8 10\\S\\3/uL 1.2-4.0 MONOCYTE # (test code = MO#) 0.4 10\\S\\3/uL 0.0-1.1 EOSINOPH # (test code = EO#) 0.2 10\\S\\3/uL 0.0-0.7 BASOPHIL # (test code = BA#) 0.0 10\\S\\3/uL 0.0-0.3 IG # (test code = IG#) 0.01 10\\S\\3/uL 0.00-0.06 NRBC # (test code = NRBC#) 0.00 10\\S\\3/uL 0.00-0.01 NEUTROPH % (test code = NE%) 50.7 % 35.0-73.0 LYMPH % (test code = LY%) 36.5 % 20.0-55.0 MONO % (test code = MO%) 8.4 % 2.5-10.0 EOSINOPH % (test code = EO%) 3.6 % 0.0-5.0 BASOPHIL % (test code = BA%) 0.6 % 0.0-2.0 IG % (test code = IG%) 0.2 % 0.0-0.8 NRBC% (test code = NRBC%) 0.0 % 0.0-0.2 MANDIFF (test code = MDIFF) NO NO RBC MORPH (test code = RBCMOR) NORMAL TROPONIN [id number] 11:38:00 Test Item Value Reference Range Interpretation Comments TROPONIN I (test code = A84) <0.015 ng/mL 0.000-0.045 LIPID [id number] 09:44:00 Test Item Value Reference Range Interpretation Comments CHOLESTROL (test code = 44A) 217 mg/dL 140-200 H TRIGLYCERI (test code = 42B) 280 mg/dL <=149 H HDL (test code = 83D) 47.0 mg/dL 40.0-60.0 LDL (test code = 34B) 135 mg/dL <=99 H CHL/HDL (test code = CHR) 4.6 0.0-3.4 H TROPONIN [id number] 05:29:00 Test Item Value Reference Range Interpretation Comments TROPONIN I (test code = A84) <0.015 ng/mL 0.000-0.045 XR CHEST 1 VIEW PORTABLE *OW*2019-04-16 23:34:13LOCATION: V20 EXAM: XR CHEST 1 VIEW PORTABLE *OW*HISTORY: [id number]: Chest pain TECHNIQUE: Frontal view of the chest.COMPARISON: None 03/02/2019FINDINGS:The lungs are well inflated. Mild platelike atelectasis is present in the leftlung base. Lungs are otherwise clear.No evidence of pneumothorax or pleural effusion. The heart is normal in size. The mediastinal contours are unremarkable. No acute osseous abnormality.IMPRESSION:Mild left basilar atelectasis.BRAIN NATRIURETIC PROTEIN OW2019-04-16 23:17:00 Test Item Value Reference Range Interpretation Comments BNP (test code = OBNP) 30 pg/mL 0-50 TROPONIN I i-STAT OW2019-04-16 23:08:00 Test Item Value Reference Range Interpretation Comments TROPONIN I (test code = A84) 0.010 ng/mL 0.000-0.045 CBC (INCLUDES AUTOMATED DIFFERENTIAL) *2019-04-16 22:56:00 Test Item Value Reference Range Interpretation Comments WBC (test code = WBC) 5.5 10\\S\\3/uL 4.5-11.0 RBC (test code = RBC) 4.60 10\\S\\6/uL 3.80-5.80 HGB (test code = HBG) 13.6 g/dL 14.0-18.0 L HCT (test code = HCT) 42.0 % 35.0-46.0 MCV (test code = MCV) 91.3 fL 80.0-94.0 MCH (test code = MCH) 29.6 pg 27.0-31.0 MCHC (test code = MCHC) 32.4 g/dL 32.0-36.0 RDW (test code = RDW) 12.9 % 11.5-14.5 PLT (test code = PLT) 219 10\\S\\3/uL 130-400 MPV (test code = OMPV) 9.1 fL 6.2-10.2 NEUTROP # (test code = NE#) 2.5 10\\S\\3/uL 2.0-8.0 LYMPH # (test code = LY#) 2.5 10\\S\\3/uL 1.2-4.0 MID # (test code = GMID#) 0.5 10\\S\\3/uL 0.0-1.1 GRA % (test code = GRA%) 45.9 % 35.0-73.0 LYMPH % (test code = GLY%) 45.8 % 20.0-55.0 MID % (test code = GMID%) 8.3 % 0.0-10.0 CHEM8+ i-STAT OW2019-04-16 22:56:00 Test Item Value Reference Range Interpretation Comments SODIUM (test code = LEONORA) 140 mmol/L 138-146 POTASSIUM (test code = KI) 4.2 mmol/L 3.5-4.9 CHLORIDE (test code = CLI) 107 mmol/L 98-109 CA IONIZED (test code = ICAI) 1.21 mmol/L 1.12-1.32 GLUCOSE (test code = GLUI) 97 mg/dL 75-100 TCO2 (test code = TCO2) 22 mmol/L 24-29 L BUN (test code = BUN1) 19 mg/dL 8-26 CREATININE (test code = CREAI) 1.1 mg/dL 0.6-1.3 ANION GAP (test code = GANG) 17.0 mmol/L HGB (test code = MHB) 13.6 g/dL 12.0-17.0 HCT (test code = MHCT) 40.0 % 38.0-51.0 XR SHOULDER RIGHT 3VIEWS *OW*2019-04-12 10:08:10Right shoulder, 3 viewsLocation Code: [id number] HISTORY: R shoulder painCOMMENTS: AP views in internal and external rotation along with a transscapularY view of the right shoulder were obtained. Thereis no acute fracture ormalalignment. Small, smoothly corticated calcifications measuring 6 and 4 mmare noted in the subacromial space along the expected course of thesupraspinatus tendon. The soft tissues are otherwise unremarkable.IMPRESSION:1. No acute abnormality.2. Calcific tendinosis of the rotator cuff.XR KNEE RIGHT 3 VIEWS *OW*2019-03-14 02:25:56AFTER HOURS SERVICE ON: 03/14/2019 2:25 AMRight Knee, 3 ViewsLocation Code [id number]: [id number]: PainFindings:There is normal anatomic alignment. There is no fracture. There is osteopenia. Moderate degenerative tricompartmental joint spacenarrowing is noted. There are small marginal spurs. There is nocho ndrocalcinosis.Impression:Moderate osteoarthritic changes.BASIC METABOLIC PANEL 2019-03-03 04:36:00 Test Item Value Reference Range Interpretation Comments GLUCOSE (test code = 06D) 97 mg/dL 75-100 SODIUM (test code = 01A) 142 mmol/L 136-145 POTASSIUM (test code = 01B) 4.0 mmol/L 3.6-5.1 CHLORIDE (test code = 04A) 112 mmol/L 98-107 H CO2 (test code = 02A) 24 mmol/L 22-32 ANION GAP (test code = ANG) 10.0 mmol/L BUN (test code = 05D) 16 mg/dL 7-18 CREATININE (test code = 03E) 0.9 mg/dL 0.7-1.3 BUN/CREA (test code = BCR) 19 12-20 CALCIUM (test code = 09D) 8.0 mg/dL 8.3-9.5 L CARDIAC [id number] 04:36:00 Test Item Value Reference Range Interpretation Comments TROPONIN I (test code = A84) <0.015 ng/mL 0.000-0.045 CBC (INCLUDES AUTOMATED DIFFERENTIAL)2019-03-03 04:13:00 Test Item Value Reference Range Interpretation Comments WBC (test code = WBC) 4.9 10\\S\\3/uL 4.5-11.0 RBC (test code = RBC) 4.41 10\\S\\6/uL 3.80-5.80 HGB (test code = HBG) 13.1 g/dL 14.0-18.0 L HCT (test code = HCT) 40.4 % 35.0-46.0 MCV (test code = MCV) 91.6 fL 80.0-94.0 MCH (test code = MCH) 29.7 pg 27.0-31.0 MCHC (test code = MCHC) 32.4 g/dL 32.0-36.0 RDW (test code = RDW) 12.9 % 11.5-14.5 PLT (test code = PLT) 166 10\\S\\3/uL 130-400 MPV (test code = MPV) 11.5 fL 9.4-12.4 NEUTROP # (test code = NE#) 2.2 10\\S\\3/uL 2.0-8.0 LYMPH # (test code = LY#) 2.1 10\\S\\3/uL 1.2-4.0 MONOCYTE # (test code = MO#) 0.5 10\\S\\3/uL 0.0-1.1 EOSINOPH # (test code = EO#) 0.2 10\\S\\3/uL 0.0-0.7 BASOPHIL # (test code = BA#) 0.1 10\\S\\3/uL 0.0-0.3 IG # (test code = IG#) 0.01 10\\S\\3/uL 0.00-0.06 NRBC # (test code = NRBC#) 0.00 10\\S\\3/uL 0.00-0.01 NEUTROPH % (test code = NE%) 44.5 % 35.0-73.0 LYMPH % (test code = LY%) 42.0 % 20.0-55.0 MONO % (test code = MO%) 9.1 % 2.5-10.0 EOSINOPH % (test code = EO%) 3.2 % 0.0-5.0 BASOPHIL % (test code = BA%) 1.0 % 0.0-2.0 IG % (test code = IG%) 0.2 % 0.0-0.8 NRBC% (test code = NRBC%) 0.0 % 0.0-0.2 MANDIFF (test code = MDIFF) NO NO RBC MORPH (test code = RBCMOR) NORMAL CARDIAC [id number] 21:51:00 Test Item Value Reference Range Interpretation Comments TROPONIN I (test code = A84) <0.015 ng/mL 0.000-0.045 BRAIN NATRIURETIC PROTEIN OW2019-03-02 16:13:00 Test Item Value Reference Range Interpretation Comments BNP (test code = OBNP) 67 pg/mL 0-50 H XR CHEST 1 VIEW PORTABLE *OW*2019-03-02 16:08:17Portable AP chest, 1 viewLocation Code: [id number] HISTORY: [id number]: Chest painCOMPARISON: 01/30/19 OMMENT: The lungs are clear and well inflated. The costophrenic angles are sharp. Thecardiomediastinal silhouette is unremarkable. The bones are intact.IMPRESSION: Mild hyperinflation without consolidations or change.TROPONIN I i-STAT OW2019-03-02 16:03:00 Test Item Value Reference Range Interpretation Comments TROPONIN I (test code = A84) 0.000 ng/mL 0.000-0.045 CBC (INCLUDES AUTOMATED DIFFERENTIAL) *2019-03-02 15:50:00 Test Item Value Reference Range Interpretation Comments WBC (test code = WBC) 5.0 10\\S\\3/uL 4.5-11.0 RBC (test code = RBC) 4.68 10\\S\\6/uL 3.80-5.80 HGB (test code = HBG) 14.0 g/dL 14.0-18.0 HCT (test code = HCT) 43.1 % 35.0-46.0 MCV (test code = MCV) 92.0 fL 80.0-94.0 MCH (test code = MCH) 29.9 pg 27.0-31.0 MCHC (test code = MCHC) 32.5 g/dL 32.0-36.0 RDW (test code = RDW) 13.6 % 11.5-14.5 PLT (test code = PLT) 224 10\\S\\3/uL 130-400 MPV (test code = OMPV) 8.3 fL 6.2-10.2 NEUTROP # (test code = NE#) 2.8 10\\S\\3/uL 2.0-8.0 LYMPH # (test code = LY#) 1.8 10\\S\\3/uL 1.2-4.0 MID # (test code = GMID#) 0.4 10\\S\\3/uL 0.0-1.1 GRA % (test code = GRA%) 56.5 % 35.0-73.0 LYMPH % (test code = GLY%) 36.0 % 20.0-55.0 MID % (test code = GMID%) 7.5 % 0.0-10.0 CHEM8+ i-STAT OW2019-03-02 15:50:00 Test Item Value Reference Range Interpretation Comments SODIUM (test code = LEONORA) 145 mmol/L 138-146 POTASSIUM (test code = KI) 3.5 mmol/L 3.5-4.9 CHLORIDE (test code = CLI) 106 mmol/L 98-109 CA IONIZED (test code = ICAI) 1.18 mmol/L 1.12-1.32 GLUCOSE (test code = GLUI) 148 mg/dL 75-100 H TCO2 (test code = TCO2) 25 mmol/L 24-29 BUN (test code = BUN1) 12 mg/dL 8-26 CREATININE (test code = CREAI) 0.8 mg/dL 0.6-1.3 ANION GAP (test code = GANG) 18.0 mmol/L HGB (test code = MHB) 13.6 g/dL 12.0-17.0 HCT (test code = MHCT) 40.0 % 38.0-51.0 TROPONIN I i-STAT OW2019-01-30 15:21:00 Test Item Value Reference Range Interpretation Comments TROPONIN I (test code = A84) 0.000 ng/mL 0.000-0.045 URINALYSIS W/O MICROSCOPICOW2019-01-30 15:18:00 Test Item Value Reference Range Interpretation Comments COLOR (test code = Yellow YELLOW COLU) CLARITY (test code = Clear CLEAR CLA) GLUCOSE UR (test Negative NEGATIVE code = UA GLUCOSE) BILI UR (test code = Negative NEGATIVE BILE) KETONES UR (test Negative NEGATIVE code = MARY) SP GRAVITY (test 1.020 1.005-1.030 code = SPGR) PH UR (test code = 6.5 4.5-8.0 PH) PROTEIN UR (test Negative NEGATIVE code = PU) NITRITE UR (test Negative NEGATIVE code = NITRITE) UROBIL UR (test code 0.2 E.U./dL = GUROQ) UROBIL UR (test code UROBILINOGEN = GUROQC) REFERENCE RANGE 0.2 - 1.0 EU/dL BLOOD UR (test code Negative NEGATIVE = UA BLOOD) LEUK ES UR (test Negative NEGATIVE code = LEUK) CBC (INCLUDES AUTOMATED DIFFERENTIAL) *2019-01-30 15:17:00 Test Item Value Reference Range Interpretation Comments WBC (test code = WBC) 4.2 10\\S\\3/uL 4.5-11.0 L RBC (test code = RBC) 4.14 10\\S\\6/uL 3.80-5.80 HGB (test code = HBG) 12.8 g/dL 14.0-18.0 L HCT (test code = HCT) 36.8 % 35.0-46.0 MCV (test code = MCV) 88.9 fL 80.0-94.0 MCH (test code = MCH) 30.9 pg 27.0-31.0 MCHC (test code = MCHC) 34.8 g/dL 32.0-36.0 RDW (test code = RDW) 12.9 % 11.5-14.5 PLT (test code = PLT) 168 10\\S\\3/uL 130-400 MPV (test code = OMPV) 8.7 fL 6.2-10.2 NEUTROP # (test code = NE#) 2.4 10\\S\\3/uL 2.0-8.0 LYMPH # (test code = LY#) 1.5 10\\S\\3/uL 1.2-4.0 MID # (test code = GMID#) 0.3 10\\S\\3/uL 0.0-1.1 GRA % (test code = GRA%) 57.3 % 35.0-73.0 LYMPH % (test code = GLY%) 35.9 % 20.0-55.0 MID % (test code = GMID%) 6.8 % 0.0-10.0 CHEM8+ i-STAT OW2019-01-30 15:17:00 Test Item Value Reference Range Interpretation Comments SODIUM (test code = LEONORA) 146 mmol/L 138-146 POTASSIUM (test code = KI) 3.5 mmol/L 3.5-4.9 CHLORIDE (test code = CLI) 109 mmol/L 98-109 CA IONIZED (test code = ICAI) 1.18 mmol/L 1.12-1.32 GLUCOSE (test code = GLUI) 173 mg/dL 75-100 H TCO2 (test code = TCO2) 24 mmol/L 24-29 BUN (test code = BUN1) 12 mg/dL 8-26 CREATININE (test code = CREAI) 0.8 mg/dL 0.6-1.3 ANION GAP (test code = GANG) 18.0 mmol/L HGB (test code = MHB) 12.2 g/dL 12.0-17.0 HCT (test code = MHCT) 36.0 % 38.0-51.0 L XR CHEST 1 VIEW *OW*2019-01-30 14:58:55Portable AP chest, 1 viewLocation Code: [id number] HISTORY: [id number]: Chest painCOMPARISON: 01/12/19COMMENT: Mild right basilar subsegmental atelectasis and/or scarring noted appearingmore prominent than prior exam. Upper lung bojorquez are clear. The costophrenicangles are sharp. The cardiomediastinal silhouette is unremarkable. The bonesare intact.IMPRESSION: Development of mild right basilar subsegmental atelectasis and/orscarringURINALYSIS W/O MICROSCOPICOW2019-01-12 19:07:00 Test Item Value Reference Range Interpretation Comments COLOR (test code = Yellow YELLOW COLU) CLARITY (test code = Clear CLEAR CLA) GLUCOSE UR (test Negative NEGATIVE code = UA GLUCOSE) BILI UR (test code = Negative NEGATIVE BILE) KETONES UR (test Negative NEGATIVE code = MARY) SP GRAVITY (test 1.020 1.005-1.030 code = SPGR) PH UR (test code = 7.0 4.5-8.0 PH) PROTEIN UR (test Negative NEGATIVE code = PU) NITRITE UR (test Negative NEGATIVE code = NITRITE) UROBIL UR (test code 0.2 E.U./dL = GUROQ) UROBIL UR (test code UROBILINOGEN = GUROQC) REFERENCE RANGE 0.2 - 1.0 EU/dL BLOOD UR (test code Negative NEGATIVE = UA BLOOD) LEUK ES UR (test Negative NEGATIVE code = LEUK) TROPONIN I i-STAT OW2019-01-12 19:06:00 Test Item Value Reference Range Interpretation Comments TROPONIN I (test code = A84) 0.010 ng/mL 0.000-0.045 BRAIN NATRIURETIC PROTEIN OW2019-01-12 18:24:00 Test Item Value Reference Range Interpretation Comments BNP (test code = OBNP) 68 pg/mL 0-50 H TROPONIN I i-STAT OW2019-01-12 18:10:00 Test Item Value Reference Range Interpretation Comments TROPONIN I (test code = A84) 0.010 ng/mL 0.000-0.045 XR CHEST 1 VIEW PORTABLE *OW*2019-01-12 17:45:20CHEST X-RAY 1 VIEWLocation: [id number] HISTORY: chest painTechnique:A single frontal view ofthe chest was obtained. Comparison made to priorstudy 12/16/18FINDINGS:Bony structures are unremarkable. The aortic and hilar outlines are normal. There is mild enlargement of the cardiac silhouette. There is mildhyperaeration. The lungs are clear of infiltrates or suspicious nodules. Nopleural effusion or pneumothorax. IMPRESSION:Mild enlargement of the cardiac silhouette. Clear lungs.CHEM8+ i-STAT OW2019-01-12 17:45:00 Test Item Value Reference Range Interpretation Comments SODIUM (test code = LEONORA) 142 mmol/L 138-146 POTASSIUM (test code = KI) 3.8 mmol/L 3.5-4.9 CHLORIDE (test code = CLI) 106 mmol/L 98-109 CA IONIZED (test code = ICAI) 1.16 mmol/L 1.12-1.32 GLUCOSE (test code = GLUI) 125 mg/dL 75-100 H TCO2 (test code = TCO2) 25 mmol/L 24-29 BUN (test code = BUN1) 12 mg/dL 8-26 CREATININE (test code = CREAI) 0.9 mg/dL 0.6-1.3 ANION GAP (test code = GANG) 15.0 mmol/L HGB (test code = MHB) 12.2 g/dL 12.0-17.0 HCT (test code = MHCT) 36.0 % 38.0-51.0 L PROTHROMBIN TIME i-STAT OW2019-01-12 17:44:00 Test Item Value Reference Range Interpretation Comments PT (test code = 11.5 s 10.0-13.0 PT1) INR (test code = 1.0 INR) INRH (test code = SUGGESTED INRH) THERAPEUTIC RANGE FOR INR: 2.5 - 3.5 For Patients with Prosthetic Valves or Patients with recurrent Thromboembolic Events 2.0 - 3.0 For Most Other Applications CBC (INCLUDES AUTOMATED DIFFERENTIAL) *2019-01-12 17:42:00 Test Item Value Reference Range Interpretation Comments WBC (test code = WBC) 4.8 10\\S\\3/uL 4.5-11.0 RBC (test code = RBC) 4.15 10\\S\\6/uL 3.80-5.80 HGB (test code = HBG) 12.9 g/dL 14.0-18.0 L HCT (test code = HCT) 36.6 % 35.0-46.0 MCV (test code = MCV) 88.1 fL 80.0-94.0 MCH (test code = MCH) 31.1 pg 27.0-31.0 H MCHC (test code = MCHC) 35.2 g/dL 32.0-36.0 RDW (test code = RDW) 13.0 % 11.5-14.5 PLT (test code = PLT) 211 10\\S\\3/uL 130-400 MPV (test code = OMPV) 8.4 fL 6.2-10.2 NEUTROP # (test code = NE#) 2.6 10\\S\\3/uL 2.0-8.0 LYMPH # (test code = LY#) 1.7 10\\S\\3/uL 1.2-4.0 MID # (test code = GMID#) 0.4 10\\S\\3/uL 0.0-1.1 GRA % (test code = GRA%) 55.2 % 35.0-73.0 LYMPH % (test code = GLY%) 36.3 % 20.0-55.0 MID % (test code = GMID%) 8.5 % 0.0-10.0 BRAIN NATRIURETIC PROTEIN OW2018-12-16 16:34:00 Test Item Value Reference Range Interpretation Comments BNP (test code = OBNP) 47 pg/mL 0-50 CHEM8+ i-STAT OW2018-12-16 16:25:00 Test Item Value Reference Range Interpretation Comments SODIUM (test code = LEONORA) 141 mmol/L 138-146 POTASSIUM (test code = KI) 3.8 mmol/L 3.5-4.9 CHLORIDE (test code = CLI) 105 mmol/L 98-109 CA IONIZED (test code = ICAI) 1.15 mmol/L 1.12-1.32 GLUCOSE (test code = GLUI) 116 mg/dL 75-100 H TCO2 (test code = TCO2) 26 mmol/L 24-29 BUN (test code = BUN1) 10 mg/dL 8-26 CREATININE (test code = CREAI) 0.8 mg/dL 0.6-1.3 ANION GAP (test code = GANG) 15.0 mmol/L HGB (test code = MHB) 13.6 g/dL 12.0-17.0 HCT (test code = MHCT) 40.0 % 38.0-51.0 TROPONIN I i-STAT OW2018-12-16 16:24:00 Test Item Value Reference Range Interpretation Comments TROPONIN I (test code = A84) 0.000 ng/mL 0.000-0.045 XR CHEST 1 VIEW PORTABLE *OW*2018-12-16 16:21:06Portable AP chest, 1 viewLocation Code: [id number] HISTORY: feverCOMPARISON: 12/06/18COMMENT: The alaina gs are clear and well inflated. The costophrenic angles are sharp. Thecardiomediastinal silhouette is unremarkable. The bones are intact.IMPRESSION: Mild hyperinflation without changeCT HEAD W/O CONTRAST *OW* 2018-12-16 16:20:32CT brain without contrast.Location code: [id number] HISTORY: headache dizziness COMPARISON: 10/30/18TECHNIQUE: Routine unenhanced axial imaging of the brain was performed. Oneor more of the following dose reduction techniques were used: Automatedexposure control, adjustment of the mA and or KV according to patient size,and/or utilization of iterative reconstruction technique. DLP: 1102.58 mGy-cm.FINDINGS: There is no acute intracranial hemorrhage or extra-axial collection.There is no hydrocephalus, midline shift, or space occupying mass. Karimi-whitematter differentiation is well preserved with no definite CT evidence of anacute infarct. The cranial vault and skull base are intact. The paranasal sinuses and mastoidair cells are pneumatized and well aerated. IMPRESSION: No acute intracranial abnormality.LACTIC ACID OW 2018-12-16 16:11:00 Test Item Value Reference Range Interpretation Comments LACTATE (test code = CELENA) 1.2 mmol/L 0.9-1.7 DIRECT STREP GROUP AOW2018-12-16 16:03:00 Test Item Value Reference Range Interpretation Comments STREP A AG (test code = STREP) NEGATIVE NEGATIVE INFLUENZA A AND B OW2018-12-16 16:02:00 Test Item Value Reference Range Interpretation Comments INFLUENZ A (test code = INFA) NEGATIVE NEGATIVE INFLUENZ B (test code = INFB) NEGATIVE NEGATIVE PROTHROMBIN TIME i-STAT OW2018-12-16 16:01:00 Test Item Value Reference Range Interpretation Comments PT (test code = 11.5 s 10.0-13.0 PT1) INR (test code = 1.0 INR) INRH (test code = SUGGESTED INRH) THERAPEUTIC RANGE FOR INR: 2.5 - 3.5 For Patients with Prosthetic Valves or Patients with recurrent Thromboembolic Events 2.0 - 3.0 For Most Other Applications CBC (INCLUDES AUTOMATED DIFFERENTIAL) *2018-12-16 16:00:00 Test Item Value Reference Range Interpretation Comments WBC (test code = WBC) 5.2 10\\S\\3/uL 4.5-11.0 RBC (test code = RBC) 4.38 10\\S\\6/uL 3.80-5.80 HGB (test code = HBG) 13.5 g/dL 14.0-18.0 L HCT (test code = HCT) 38.7 % 35.0-46.0 MCV (test code = MCV) 88.3 fL 80.0-94.0 MCH (test code = MCH) 30.8 pg 27.0-31.0 MCHC (test code = MCHC) 34.9 g/dL 32.0-36.0 RDW (test code = RDW) 12.9 % 11.5-14.5 PLT (test code = PLT) 215 10\\S\\3/uL 130-400 MPV (test code = OMPV) 8.3 fL 6.2-10.2 NEUTROP # (test code = NE#) 3.0 10\\S\\3/uL 2.0-8.0 LYMPH # (test code = LY#) 1.8 10\\S\\3/uL 1.2-4.0 MID # (test code = GMID#) 0.4 10\\S\\3/uL 0.0-1.1 GRA % (test code = GRA%) 58.4 % 35.0-73.0 LYMPH % (test code = GLY%) 33.8 % 20.0-55.0 MID % (test code = GMID%) 7.8 % 0.0-10.0 URINALYSIS W/O MICROSCOPICOW2018-12-16 15:57:00 Test Item Value Reference Range Interpretation Comments COLOR (test code = Yellow YELLOW COLU) CLARITY (test code = Clear CLEAR CLA) GLUCOSE UR (test Negative NEGATIVE code = UA GLUCOSE) BILI UR (test code = Negative NEGATIVE BILE) KETONES UR (test Negative NEGATIVE code = MARY) SP GRAVITY (test 1.020 1.005-1.030 code = SPGR) PH UR (test code = 6.0 4.5-8.0 PH) PROTEIN UR (test Negative NEGATIVE code = PU) NITRITE UR (test Negative NEGATIVE code = NITRITE) UROBIL UR (test code 0.2 E.U./dL = GUROQ) UROBIL UR (test code UROBILINOGEN = GUROQC) REFERENCE RANGE 0.2 - 1.0 EU/dL BLOOD UR (test code Negative NEGATIVE = UA BLOOD) LEUK ES UR (test Negative NEGATIVE code = LEUK) XR RIBS LEFT UNIL 3 VWS W/PA CXR 2018-12-06 11:32:55Left rib series, 4 viewsLocation Code: D4 CLINICAL HISTORY: Falling injuryComparison: CT dated 11/29/2018COMMENT: Frontal view of the chest shows the lungs to be clear with nopneumothorax, consolidation, or effusion. The cardiomediastinal silhouette isunremarkable. AP and oblique views of the left ribsare obtained. There old, healed fracturesof the lateral 6th, 7th, and 8th ribs. Demonstrate no displaced fracture. Thesoft tissues are unremarkable.IMPRESSION: No acute abnormality or significant interval change.XR KNEE LEFT 3 VIEWS 2018-12-06 11:32:21Left knee, 3 viewsLocation Code: [id number] HISTORY:: Unspecified fallCOMMENTS: AP, lateral, and oblique views of the left knee demonstrate no acutefracture or malalignment. Mild tricompartmental arthrosis with small effusionwithout change from 11/29/18. Vascular calcifications again seen.IMPRES PEGGY: No acute radiographic abnormality. Moderate arthrosis with smalleffusion. XR WRIST LEFT COMPLETE 3 VIEWS 2018-12-06 11:30:40Left wrist, 3 viewsLocation Code: [id number] HISTORY: Unspecified fallCOMPARISON: 11/29/2018COMMENTS:AP, lateral, and oblique views of the right wrist demonstrate noacute fracture or malalignment. Osteoarthritic changes noted at the radioscaphoid joint. The soft tissues are unremarkable.IMPRESSION: Stable exam with no acute abnormality.XR ELBOW LEFT COMPLETE 3 VIEWS *OW*2018-11-29 11:23:50 HISTORY: Male, 73 years of age. : Unspecified fallLocation code: D4EXAM: RIGHT ELBOW, 3 VIEWSCOMPARISON: NoneFINDINGS: There are chronic appearing dystrophic calcifications in the regionof medial and lateral collateral ligaments on AP view. Minor degenerativespurring seen in the proximal ulna. There is no acute fracture or dislocation. No significant joint effusion is seen. Arterial calcifications are noted.IMPRESSION: 1. No acute fracture or dislocation.2. Dystrophic ligamentous calcifications.3. Mild degenerative change.URINALYSIS W/O MICROSCOPICOW2018-11-29 11:05:00 Test Item Value Reference Range Interpretation Comments COLOR (test code = YELLOW YELLOW COLU) CLARITY (test code = CLEAR CLEAR CLA) GLUCOSE UR (test NEGATIVE NEGATIVE code = UA GLUCOSE) BILI UR (test code = NEGATIVE NEGATIVE BILE) KETONES UR (test NEGATIVE NEGATIVE code = MARY) SP GRAVITY (test 1.025 1.005-1.030 code = SPGR) PH UR (test code = 6.0 4.5-8.0 PH) PROTEIN UR (test NEGATIVE NEGATIVE code = PU) NITRITE UR (test NEGATIVE NEGATIVE code = NITRITE) UROBIL UR (test code 0.2 E.U./dL = GUROQ) UROBIL UR (test code UROBILINOGEN = GUROQC) REFERENCE RANGE 0.2 - 1.0 EU/dL BLOOD UR (test code NEGATIVE NEGATIVE = UA BLOOD) LEUK ES UR (test NEGATIVE NEGATIVE code = LEUK) XR WRIST LEFT COMPLETE 3 VIEWS *OW*2018-11-29 10:58:01HISTORY: Male, 73 years of age. : Unspecified fallLocation code: D4EXAM: LEFT WRIST, 3 VIEWS COMPARISON: NoneFINDINGS: No focal soft tissue swelling. Extensive arterial calcifications arepresent. There is moderate to severe chronic arthritis manifest by joint spacenarrowing and marginal spurring, most prominent in the radiocarpal joint. Thereis no acute fracture or dislocation.IMPRESSION: Chronic arthritis. No acute bony abnormalities.XR SHOULDER LEFT 3 VIEWS *OW*2018-11-29 10:52:48HISTORY: 73-year-old male. : Unspecified fallLocation code: D4EXAM: LEFT SHOULDER, 3 VIEWS.COMPARISON: Chest x-ray 11/08/2018FINDINGS: Mild DJD seen in the articular surfaces. There is no acute fractureor dislocation. No osteolytic or osteoblastic lesions. IMPRESSION: Mild DJD. No acute bony abn ormalities.XR KNEE LEFT 3 VIEWS *OW*2018-11-29 10:51:32HISTORY: Male, 73 years of age. : Unspecified fallLocation code: D4EXAM: LEFT KNEE, 3 VIEWSCOM PARISON: NoneFINDINGS: Mild soft tissue swelling seen anterior to patella. No significantjoint effusion. There is mild chronic arthritis manifest by tricompartmentjoint space narrowing and marginal spurring. No acute fracture, dislocation,osteolytic or osteoblastic lesion. Incidental note made of exten siveatherosclerotic arterial calcification.IMPRESSION: Prepatellar soft tissue swelling and mild DJD. No acute bonyabnormalities.XR HIP LEFT UNILATERAL 2 VWS *OW*2018-11-29 10:47:29HISTORY: : Unspecified fallLocation code: [id number]: LEFT HIP, 2 VIEWSCOMPARISON: No prior studies.COMMENT: Mild joint space narrowing and marginal spurring seen at the lefthip. No acute fr acture, dislocation, periosteal reaction, osteolytic orosteoblastic lesion. Atherosclerotic arterial calcifications incidentallynoted.IMPRESSION: Mild DJD. No acute bony abnormality.CT ABDOMEN AND PELVIS W/O CONTRAST *OW*2018-11-29 10:37:52EXAMINATION: CT CHEST W/O CONTRAST *OW*, CT ABDOMEN AND PELVIS W/O CONTRAST*OW*.LOCATION: D4.HISTORY: Fall.COMPARISON: None.TECHNIQUE: CT imaging was performed of chest, abdomen and pelvis without oralor intravenous contrast. One or more the following dose reduction techniqueswere used: Automated exposure control, adjustment of mA and/or kV according topatient size, and use of iterative reconstruction technique.FINDINGS: Examination is limited in evaluation due to lack of oral andintravenous contrast. Partially visualized thyroid gland appears unremarkable.No axillary or mediastinal bulky lymphaden opathy is identified. Evaluation forhilar adenopathy is limited without contrast.No mediastinal massis noted. No aneurysmal dilatation of thoracic aorta.Atherosclerotic coronary arterial and vascularcalcifications.No pericardial or pleural effusion is seen. The trachea and central bronchi are patent. No pneumothorax. No focalconsolidation. Bibasilar dependent changes. 5 mm right middle lobe nodule.Biapical thickening/scarring.Too small to characterize low-attenuation structure and left hepaticdome. Thegallbladder, spleen, pancreas, adrenals and kidneys appear unremarkable. Nohydronephrosis. Underdistended urinary bladder.The bowel loops appear normal in course and caliber. No bowel obstruction.Moderate stool throughout colon. Colonic diverticulosis with sigmoid colonicwall thickening. Unremarkable appendix. Thickening involving cecum wall. Smallhiatal hernia.No abdominal or pelvic bulky lymphadenopathy is identified.No free fluid or pneumoperitoneum. Atherosclerotic vascular calcifications.Enlarged prostate measuring 4.8 x 4.5 cm. 1 cm splenic artery peripherallycalcified aneurysm.Visualized osseous structures demonstrate degenerative changes.IMPRESSION:No acute posttraumatic findingswithin chest, abdomen nor pelvis.Colonic diverticulosis with sigmoid colonic wall thickening. Thickeninginvolving cecum wall as well. Correlate with colonoscopy.5 mm right middle lobe nodule.Other findings as above.CT CHEST W/O CONTRAST *OW*2018-11-29 10:37:52EXAMINATION: CT CHEST W/O CONTRAST *OW*, CT ABDOMEN AND PELVIS W/O CONTRAST*OW*.LOCATION: D4.HISTORY: Fall.COMPARISON: None.TECHNIQUE: CT imaging was performed of chest, abdomen and pelvis without oralor intravenous contrast. One or more the following dose reduction techniqueswere used: Automated exposure control, adjustment of mA and/or kV according topatient size, and use of iterative reconstruction technique.FINDINGS: Examination is limited in evaluation due to lack of oral andintravenous contrast. Partially visualized thyroid gland appears unremarkable.No axillary or mediastinal bulky lymphadenopathy is identified. Evaluation forhilar adenopathy is limited without contrast.No mediastinal massis noted. No aneurysmal dilatation of thoracic aorta.Atherosclerotic coronary arterial and vascularcalcifications.No pericardial or pleural effusion is seen. The trachea and central bronchi are patent. No pneumothorax. No focalconsolidation. Bibasilar dependent changes. 5 mm right middle lobe nodu le.Biapical thickening/scarring.Too small to characterize low-attenuation structure and left hepaticdome. Thegallbladder, spleen, pancreas, adrenals and kidneys appear unremarkable. Nohydronephrosis.Underdistended urinary bladder.The bowel loops appear normal in course and caliber. No bowel obstruct ion.Moderate stool throughout colon. Colonic diverticulosis with sigmoid colonicwall thickening. Unremarkable appendix. Thickening involving cecum wall. Smallhiatal hernia.No abdominal or pelvic bulky lymphadenopathy is identified.No free fluid or pneumoperitoneum. Atherosclerotic vascular calcificatio ns.Enlarged prostate measuring 4.8 x 4.5 cm. 1 cm splenic artery peripherallycalcified aneurysm.Visualized osseous structures demonstrate degenerative changes.IMPRESSION:No acute posttraumatic findingswithin chest, abdomen nor pelvis.Colonic diverticulosis with sigmoid colonic wall thickening. Thickeninginvolving cecum wall as well. Correlate with colonoscopy.5 mm right middle lobe nodule.Other findings as above.CBC (INCLUDES AUTOMATED DIFFERENTIAL) *2018-11-29 10:12:00 Test Item Value Reference Range Interpretation Comments WBC (test code = WBC) 5.1 10\\S\\3/uL 4.5-11.0 RBC (test code = RBC) 4.44 10\\S\\6/uL 3.80-5.80 HGB (test code = HBG) 13.9 g/dL 14.0-18.0 L HCT (test code = HCT) 39.8 % 35.0-46.0 MCV (test code = MCV) 89.6 fL 80.0-94.0 MCH (test code = MCH) 31.3 pg 27.0-31.0 H MCHC (test code = MCHC) 34.9 g/dL 32.0-36.0 RDW (test code = RDW) 12.2 % 11.5-14.5 PLT (test code = PLT) 194 10\\S\\3/uL 130-400 MPV (test code = OMPV) 8.8 fL 6.2-10.2 NEUTROP # (test code = NE#) 3.3 10\\S\\3/uL 2.0-8.0 LYMPH # (test code = LY#) 1.3 10\\S\\3/uL 1.2-4.0 MID # (test code = GMID#) 0.4 10\\S\\3/uL 0.0-1.1 GRA % (test code = GRA%) 65.1 % 35.0-73.0 LYMPH % (test code = GLY%) 26.4 % 20.0-55.0 MID % (test code = GMID%) 8.5 % 0.0-10.0 CHEM8+ i-STAT OW2018-11-29 10:11:00 Test Item Value Reference Range Interpretation Comments SODIUM (test code = LEONORA) 141 mmol/L 138-146 POTASSIUM (test code = KI) 3.9 mmol/L 3.5-4.9 CHLORIDE (test code = CLI) 103 mmol/L 98-109 CA IONIZED (test code = ICAI) 1.18 mmol/L 1.12-1.32 GLUCOSE (test code = GLUI) 107 mg/dL 75-100 H TCO2 (test code = TCO2) 26 mmol/L 24-29 BUN (test code = BUN1) 15 mg/dL 8-26 CREATININE (test code = CREAI) 0.8 mg/dL 0.6-1.3 ANION GAP (test code = GANG) 18.0 mmol/L HGB (test code = MHB) 13.3 g/dL 12.0-17.0 HCT (test code = MHCT) 39.0 % 38.0-51.0 TROPONIN I i-STAT OW2018-11-25 17:18:00 Test Item Value Reference Range Interpretation Comments TROPONIN I (test code = A84) 0.000 ng/mL 0.000-0.045 CHEM8+ i-STAT OW2018-11-25 17:12:00 Test Item Value Reference Range Interpretation Comments SODIUM (test code = LEONORA) 143 mmol/L 138-146 POTASSIUM (test code = KI) 4.3 mmol/L 3.5-4.9 CHLORIDE (test code = CLI) 106 mmol/L 98-109 CA IONIZED (test code = ICAI) 1.20 mmol/L 1.12-1.32 GLUCOSE (test code = GLUI) 128 mg/dL 75-100 H TCO2 (test code = TCO2) 27 mmol/L 24-29 BUN (test code = BUN1) 21 mg/dL 8-26 CREATININE (test code = CREAI) 1.0 mg/dL 0.6-1.3 ANION GAP (test code = GANG) 15.0 mmol/L HGB (test code = MHB) 13.6 g/dL 12.0-17.0 HCT (test code = MHCT) 40.0 % 38.0-51.0 CBC (INCLUDES AUTOMATED DIFFERENTIAL) *2018-11-25 17:06:00 Test Item Value Reference Range Interpretation Comments WBC (test code = WBC) 4.4 10\\S\\3/uL 4.5-11.0 L RBC (test code = RBC) 4.26 10\\S\\6/uL 3.80-5.80 HGB (test code = HBG) 13.7 g/dL 14.0-18.0 L HCT (test code = HCT) 38.3 % 35.0-46.0 MCV (test code = MCV) 90.0 fL 80.0-94.0 MCH (test code = MCH) 32.2 pg 27.0-31.0 H MCHC (test code = MCHC) 35.8 g/dL 32.0-36.0 RDW (test code = RDW) 12.6 % 11.5-14.5 PLT (test code = PLT) 192 10\\S\\3/uL 130-400 MPV (test code = OMPV) 8.7 fL 6.2-10.2 NEUTROP # (test code = NE#) 2.3 10\\S\\3/uL 2.0-8.0 LYMPH # (test code = LY#) 1.7 10\\S\\3/uL 1.2-4.0 MID # (test code = GMID#) 0.4 10\\S\\3/uL 0.0-1.1 GRA % (test code = GRA%) 52.9 % 35.0-73.0 LYMPH % (test code = GLY%) 38.3 % 20.0-55.0 MID % (test code = GMID%) 8.8 % 0.0-10.0 PROTHROMBIN TIME i-STAT OW2018-11-25 17:03:00 Test Item Value Reference Range Interpretation Comments PT (test code = 12.4 s 10.0-13.0 PT1) INR (test code = 1.0 INR) INRH (test code = SUGGESTED INRH) THERAPEUTIC RANGE FOR INR: 2.5 - 3.5 For Patients with Prosthetic Valves or Patients with recurrent Thromboembolic Events 2.0 - 3.0 For Most Other Applications BLOOD [id number] 07:28:00 Test Item Value Reference Range Interpretation Comments Culture Observations (test NO GROWTH AFTER 5 code = COB1) DAYS BLOOD [id number] 08:22:00 Test Item Value Reference Range Interpretation Comments Culture Observations (test NO GROWTH AFTER 5 code = COB1) DAYS XR CHEST 1 VIEW PORTABLE *OW*2018-11-12 12:23:19LOCATION: [id number]: CHEST 1 VIEWINDICATION: Chest painCOMPARISON: Chest x-ray 11/08/18TECHNIQUE: AP chest radiograph.FINDINGS: Lungs are clear bilaterally without effusion. Mild central vascularcongestion noted. Heart is normal in size. Bones and peripheral soft tissuesare unremarkable.IMPRESSION: Mild central vascular congestion. TROPONIN I i-STAT OW2018-11-12 12:14:00 Test Item Value Reference Range Interpretation Comments TROPONIN I (test code = A84) 0.010 ng/mL 0.000-0.045 CHEM8+ i-STAT OW2018-11-12 12:03:00 Test Item Value Reference Range Interpretation Comments SODIUM (test code = LEONORA) 142 mmol/L 138-146 POTASSIUM (test code = KI) 3.7 mmol/L 3.5-4.9 CHLORIDE (test code = CLI) 106 mmol/L 98-109 CA IONIZED (test code = ICAI) 1.19 mmol/L 1.12-1.32 GLUCOSE (test code = GLUI) 125 mg/dL 75-100 H TCO2 (test code = TCO2) 25 mmol/L 24-29 BUN (test code = BUN1) 15 mg/dL 8-26 CREATININE (test code = CREAI) 0.7 mg/dL 0.6-1.3 ANION GAP (test code = GANG) 16.0 mmol/L HGB (test code = MHB) 14.3 g/dL 12.0-17.0 HCT (test code = MHCT) 42.0 % 38.0-51.0 CBC (INCLUDES AUTOMATED DIFFERENTIAL) *2018-11-12 11:59:00 Test Item Value Reference Range Interpretation Comments WBC (test code = WBC) 5.9 10\\S\\3/uL 4.5-11.0 RBC (test code = RBC) 4.47 10\\S\\6/uL 3.80-5.80 HGB (test code = HBG) 14.3 g/dL 14.0-18.0 HCT (test code = HCT) 40.8 % 35.0-46.0 MCV (test code = MCV) 91.3 fL 80.0-94.0 MCH (test code = MCH) 32.0 pg 27.0-31.0 H MCHC (test code = MCHC) 35.0 g/dL 32.0-36.0 RDW (test code = RDW) 12.6 % 11.5-14.5 PLT (test code = PLT) 171 10\\S\\3/uL 130-400 MPV (test code = OMPV) 8.8 fL 6.2-10.2 NEUTROP # (test code = NE#) 3.7 10\\S\\3/uL 2.0-8.0 LYMPH # (test code = LY#) 1.8 10\\S\\3/uL 1.2-4.0 MID # (test code = GMID#) 0.4 10\\S\\3/uL 0.0-1.1 GRA % (test code = GRA%) 62.6 % 35.0-73.0 LYMPH % (test code = GLY%) 29.9 % 20.0-55.0 MID % (test code = GMID%) 7.5 % 0.0-10.0 LACTIC ACID OW2018-11-12 11:59:00 Test Item Value Reference Range Interpretation Comments LACTATE (test code = CELENA) 0.6 mmol/L 0.9-1.7 L CBC (INCLUDES AUTOMATED DIFFERENTIAL)2018-11-10 05:52:00 Test Item Value Reference Range Interpretation Comments WBC (test code = WBC) 6.3 10\\S\\3/uL 4.5-11.0 RBC (test code = RBC) 4.50 10\\S\\6/uL 3.80-5.80 HGB (test code = HBG) 13.5 g/dL 14.0-18.0 L HCT (test code = HCT) 40.6 % 35.0-46.0 MCV (test code = MCV) 90.2 fL 80.0-94.0 MCH (test code = MCH) 30.0 pg 27.0-31.0 MCHC (test code = MCHC) 33.3 g/dL 32.0-36.0 RDW (test code = RDW) 11.8 % 11.5-14.5 PLT (test code = PLT) 177 10\\S\\3/uL 130-400 MPV (test code = MPV) 11.5 fL 9.4-12.4 NEUTROP # (test code = NE#) 3.6 10\\S\\3/uL 2.0-8.0 LYMPH # (test code = LY#) 1.8 10\\S\\3/uL 1.2-4.0 MONOCYTE # (test code = MO#) 0.6 10\\S\\3/uL 0.0-1.1 EOSINOPH # (test code = EO#) 0.2 10\\S\\3/uL 0.0-0.7 BASOPHIL # (test code = BA#) 0.1 10\\S\\3/uL 0.0-0.3 IG # (test code = IG#) 0.02 10\\S\\3/uL 0.00-0.06 NRBC # (test code = NRBC#) 0.00 10\\S\\3/uL 0.00-0.01 NEUTROPH % (test code = NE%) 57.3 % 35.0-73.0 LYMPH % (test code = LY%) 29.0 % 20.0-55.0 MONO % (test code = MO%) 9.9 % 2.5-10.0 EOSINOPH % (test code = EO%) 2.7 % 0.0-5.0 BASOPHIL % (test code = BA%) 0.8 % 0.0-2.0 IG % (test code = IG%) 0.3 % 0.0-0.8 NRBC% (test code = NRBC%) 0.0 % 0.0-0.2 MANDIFF (test code = MDIFF) NO NO RBC MORPH (test code = RBCMOR) NORMAL BASIC METABOLIC [id number] 05:51:00 Test Item Value Reference Range Interpretation Comments GLUCOSE (test code = 06D) 104 mg/dL 75-100 H SODIUM (test code = 01A) 140 mmol/L 136-145 POTASSIUM (test code = 01B) 4.0 mmol/L 3.6-5.1 CHLORIDE (test code = 04A) 107 mmol/L 98-107 CO2 (test code = 02A) 27 mmol/L 22-32 ANION GAP (test code = ANG) 10.0 mmol/L BUN (test code = 05D) 13 mg/dL 7-18 CREATININE (test code = 03E) 0.7 mg/dL 0.7-1.3 BUN/CREA (test code = BCR) 18 12-20 CALCIUM (test code = 09D) 8.4 mg/dL 8.3-9.5 VANCOMYCIN [id number] 09:01:00 Test Item Value Reference Range Interpretation Comments VANC TROGH (test code = VANCT) 12.2 ug/dL 10.0-20.0 BLOOD [id number] 07:41:00 Test Item Value Reference Range Interpretation Comments Culture Observations POSITIVE BLOOD (test code = COB1) CULTURE Isolate 1 (test code Staphylococcus 4 OF 4 BOTTLES = ISO1) warneri oxacillin kashif (test ug/mL S 2 OF 4 B OTTLES code = ox) gentamicin (test ug/mL S code = gm) ciprofloxacin (test ug/mL S code = cip) levofloxacin (test ug/mL S code = lev) erythromycin (test ug/mL S code = e) clindamycin (test ug/mL S code = cc) vancomycin (test ug/mL S code = va) doxycycline (test ug/mL S code = dx) tetracycline (test ug/mL S code = tet) rifampicin (test ug/mL S code = rif) Isolate 2 (test code Staphylococcus A = ISO2) epidermidis oxacillin kashif (test ug/mL R code = ox) gentamicin (test ug/mL S code = gm) ciprofloxacin (test ug/mL I code = cip) levofloxacin (test ug/mL I code = lev) erythromycin (test ug/mL S code = e) clindamycin (test ug/mL S code = cc) linezolid (test code ug/mL S = lnz) daptomycin (test ug/mL S code = dap) vancomycin (test ug/mL S code = va) doxycycline (test ug/mL S code = dx) tetracycline (test ug/mL S code = tet) rifampicin (test ug/mL S code = rif) BASIC METABOLIC [id number] 04:24:00 Test Item Value Reference Range Interpretation Comments GLUCOSE (test code = 06D) 99 mg/dL 75-100 SODIUM (test code = 01A) 140 mmol/L 136-145 POTASSIUM (test code = 01B) 3.9 mmol/L 3.6-5.1 CHLORIDE (test code = 04A) 109 mmol/L 98-107 H CO2 (test code = 02A) 26 mmol/L 22-32 ANION GAP (test code = ANG) 8.9 mmol/L BUN (test code = 05D) 16 mg/dL 7-18 CREATININE (test code = 03E) 0.7 mg/dL 0.7-1.3 BUN/CREA (test code = BCR) 22 12-20 H CALCIUM (test code = 09D) 7.8 mg/dL 8.3-9.5 L CBC (INCLUDES AUTOMATED DIFFERENTIAL)2018-11-09 04:19:00 Test Item Value Reference Range Interpretation Comments WBC (test code = WBC) 6.3 10\\S\\3/uL 4.5-11.0 RBC (test code = RBC) 4.31 10\\S\\6/uL 3.80-5.80 HGB (test code = HBG) 13.2 g/dL 14.0-18.0 L HCT (test code = HCT) 39.0 % 35.0-46.0 MCV (test code = MCV) 90.5 fL 80.0-94.0 MCH (test code = MCH) 30.6 pg 27.0-31.0 MCHC (test code = MCHC) 33.8 g/dL 32.0-36.0 RDW (test code = RDW) 11.9 % 11.5-14.5 PLT (test code = PLT) 163 10\\S\\3/uL 130-400 MPV (test code = MPV) 11.4 fL 9.4-12.4 NEUTROP # (test code = NE#) 3.6 10\\S\\3/uL 2.0-8.0 LYMPH # (test code = LY#) 1.8 10\\S\\3/uL 1.2-4.0 MONOCYTE # (test code = MO#) 0.6 10\\S\\3/uL 0.0-1.1 EOSINOPH # (test code = EO#) 0.2 10\\S\\3/uL 0.0-0.7 BASOPHIL # (test code = BA#) 0.1 10\\S\\3/uL 0.0-0.3 IG # (test code = IG#) 0.02 10\\S\\3/uL 0.00-0.06 NRBC # (test code = NRBC#) 0.00 10\\S\\3/uL 0.00-0.01 NEUTROPH % (test code = NE%) 57.2 % 35.0-73.0 LYMPH % (test code = LY%) 28.2 % 20.0-55.0 MONO % (test code = MO%) 9.8 % 2.5-10.0 EOSINOPH % (test code = EO%) 3.5 % 0.0-5.0 BASOPHIL % (test code = BA%) 1.0 % 0.0-2.0 IG % (test code = IG%) 0.3 % 0.0-0.8 NRBC% (test code = NRBC%) 0.0 % 0.0-0.2 MANDIFF (test code = MDIFF) NO NO RBC MORPH (test code = RBCMOR) NORMAL DIRECT INFLUENZA A AND B [id number] 16:43:00 Test Item Value Reference Range Interpretation Comments Direct Exam (test PRESUMPTIVE NEGATIVE FOR code = DE1) THE PRESENCE OF INFLUENZA ANTIGEN XR CHEST 1 VIEW [id number] 16:20:32Portable AP chest, 1 viewLocation Code: [id number] HISTORY: [id number]: Bacterial pneumoniaCOMPARISON: 11/04/18COMMENT: Previously seen mild right basilar infiltrate medially is essentially clear.The heart size is normal and left lung is clear. Osseous structures are intact.IMPRESSION: The central clearing of mild right medial lower lobe infiltrateBASIC METABOLIC [id number] 05:47:00 Test Item Value Reference Range Interpretation Comments GLUCOSE (test code = 06D) 114 mg/dL 75-100 H SODIUM (test code = 01A) 140 mmol/L 136-145 POTASSIUM (test code = 01B) 3.9 mmol/L 3.6-5.1 CHLORIDE (test code = 04A) 109 mmol/L 98-107 H CO2 (test code = 02A) 27 mmol/L 22-32 ANION GAP (test code = ANG) 7.9 mmol/L BUN (test code = 05D) 16 mg/dL 7-18 CREATININE (test code = 03E) 0.7 mg/dL 0.7-1.3 BUN/CREA (test code = BCR) 23 12-20 H CALCIUM (test code = 09D) 8.2 mg/dL 8.3-9.5 L CBC (INCLUDES AUTOMATED DIFFERENTIAL)2018-11-08 05:37:00 Test Item Value Reference Range Interpretation Comments WBC (test code = WBC) 6.1 10\\S\\3/uL 4.5-11.0 RBC (test code = RBC) 4.29 10\\S\\6/uL 3.80-5.80 HGB (test code = HBG) 13.1 g/dL 14.0-18.0 L HCT (test code = HCT) 39.3 % 35.0-46.0 MCV (test code = MCV) 91.6 fL 80.0-94.0 MCH (test code = MCH) 30.5 pg 27.0-31.0 MCHC (test code = MCHC) 33.3 g/dL 32.0-36.0 RDW (test code = RDW) 12.0 % 11.5-14.5 PLT (test code = PLT) 170 10\\S\\3/uL 130-400 MPV (test code = MPV) 11.6 fL 9.4-12.4 NEUTROP # (test code = NE#) 3.5 10\\S\\3/uL 2.0-8.0 LYMPH # (test code = LY#) 1.7 10\\S\\3/uL 1.2-4.0 MONOCYTE # (test code = MO#) 0.6 10\\S\\3/uL 0.0-1.1 EOSINOPH # (test code = EO#) 0.3 10\\S\\3/uL 0.0-0.7 BASOPHIL # (test code = BA#) 0.1 10\\S\\3/uL 0.0-0.3 IG # (test code = IG#) 0.02 10\\S\\3/uL 0.00-0.06 NRBC # (test code = NRBC#) 0.00 10\\S\\3/uL 0.00-0.01 NEUTROPH % (test code = NE%) 57.5 % 35.0-73.0 LYMPH % (test code = LY%) 27.6 % 20.0-55.0 MONO % (test code = MO%) 9.2 % 2.5-10.0 EOSINOPH % (test code = EO%) 4.4 % 0.0-5.0 BASOPHIL % (test code = BA%) 1.0 % 0.0-2.0 IG % (test code = IG%) 0.3 % 0.0-0.8 NRBC% (test code = NRBC%) 0.0 % 0.0-0.2 MANDIFF (test code = MDIFF) NO NO RBC MORPH (test code = RBCMOR) NORMAL BLOOD [id number] 07:51:00 Test Item Value Reference Range Interpretation Comments Culture Observations POSITIVE BLOOD (test code = COB1) CULTURE Culture Observations 4 OUT OF 4 BOTTLES (test code = COB2) Culture Observations gram positive cocci (test code = COB3) present Isolate 1 (test code = Staphylococcus warneri ISO1) oxacillin kashif (test ug/mL S code = ox) gentamicin (test code ug/mL S = gm) ciprofloxacin (test ug/mL S code = cip) levofloxacin (test ug/mL S code = lev) erythromycin (test ug/mL S code = e) clindamycin (test code ug/mL S = cc) vancomycin (test code ug/mL S = va) doxycycline (test code ug/mL S = dx) tetracycline (test ug/mL S code = tet) rifampicin (test code ug/mL S = rif) BASIC METABOLIC [id number] 05:56:00 Test Item Value Reference Range Interpretation Comments GLUCOSE (test code = 06D) 117 mg/dL 75-100 H SODIUM (test code = 01A) 139 mmol/L 136-145 POTASSIUM (test code = 01B) 4.1 mmol/L 3.6-5.1 CHLORIDE (test code = 04A) 109 mmol/L 98-107 H CO2 (test code = 02A) 27 mmol/L 22-32 ANION GAP (test code = ANG) 7.1 mmol/L BUN (test code = 05D) 14 mg/dL 7-18 CREATININE (test code = 03E) 0.7 mg/dL 0.7-1.3 BUN/CREA (test code = BCR) 19 12-20 CALCIUM (test code = 09D) 8.5 mg/dL 8.3-9.5 CBC (INCLUDES AUTOMATED DIFFERENTIAL)2018-11-07 05:45:00 Test Item Value Reference Range Interpretation Comments WBC (test code = WBC) 5.7 10\\S\\3/uL 4.5-11.0 RBC (test code = RBC) 4.71 10\\S\\6/uL 3.80-5.80 HGB (test code = HBG) 14.4 g/dL 14.0-18.0 HCT (test code = HCT) 42.5 % 35.0-46.0 MCV (test code = MCV) 90.2 fL 80.0-94.0 MCH (test code = MCH) 30.6 pg 27.0-31.0 MCHC (test code = MCHC) 33.9 g/dL 32.0-36.0 RDW (test code = RDW) 12.0 % 11.5-14.5 PLT (test code = PLT) 186 10\\S\\3/uL 130-400 MPV (test code = MPV) 11.5 fL 9.4-12.4 NEUTROP # (test code = NE#) 2.7 10\\S\\3/uL 2.0-8.0 LYMPH # (test code = LY#) 2.3 10\\S\\3/uL 1.2-4.0 MONOCYTE # (test code = MO#) 0.5 10\\S\\3/uL 0.0-1.1 EOSINOPH # (test code = EO#) 0.2 10\\S\\3/uL 0.0-0.7 BASOPHIL # (test code = BA#) 0.0 10\\S\\3/uL 0.0-0.3 IG # (test code = IG#) 0.02 10\\S\\3/uL 0.00-0.06 NRBC # (test code = NRBC#) 0.00 10\\S\\3/uL 0.00-0.01 NEUTROPH % (test code = NE%) 46.4 % 35.0-73.0 LYMPH % (test code = LY%) 39.5 % 20.0-55.0 MONO % (test code = MO%) 9.5 % 2.5-10.0 EOSINOPH % (test code = EO%) 3.5 % 0.0-5.0 BASOPHIL % (test code = BA%) 0.7 % 0.0-2.0 IG % (test code = IG%) 0.4 % 0.0-0.8 NRBC% (test code = NRBC%) 0.0 % 0.0-0.2 MANDIFF (test code = MDIFF) NO NO RBC MORPH (test code = RBCMOR) NORMAL BASIC METABOLIC [id number] 04:36:00 Test Item Value Reference Range Interpretation Comments GLUCOSE (test code = 06D) 125 mg/dL 75-100 H SODIUM (test code = 01A) 139 mmol/L 136-145 POTASSIUM (test code = 01B) 3.9 mmol/L 3.6-5.1 CHLORIDE (test code = 04A) 108 mmol/L 98-107 H CO2 (test code = 02A) 26 mmol/L 22-32 ANION GAP (test code = ANG) 8.9 mmol/L BUN (test code = 05D) 10 mg/dL 7-18 CREATININE (test code = 03E) 0.8 mg/dL 0.7-1.3 BUN/CREA (test code = BCR) 13 12-20 CALCIUM (test code = 09D) 7.9 mg/dL 8.3-9.5 L CBC (INCLUDES AUTOMATED DIFFERENTIAL)2018-11-06 04:20:00 Test Item Value Reference Range Interpretation Comments WBC (test code = WBC) 5.6 10\\S\\3/uL 4.5-11.0 RBC (test code = RBC) 4.52 10\\S\\6/uL 3.80-5.80 HGB (test code = HBG) 13.7 g/dL 14.0-18.0 L HCT (test code = HCT) 40.4 % 35.0-46.0 MCV (test code = MCV) 89.4 fL 80.0-94.0 MCH (test code = MCH) 30.3 pg 27.0-31.0 MCHC (test code = MCHC) 33.9 g/dL 32.0-36.0 RDW (test code = RDW) 11.9 % 11.5-14.5 PLT (test code = PLT) 156 10\\S\\3/uL 130-400 MPV (test code = MPV) 11.2 fL 9.4-12.4 NEUTROP # (test code = NE#) 2.8 10\\S\\3/uL 2.0-8.0 LYMPH # (test code = LY#) 2.0 10\\S\\3/uL 1.2-4.0 MONOCYTE # (test code = MO#) 0.5 10\\S\\3/uL 0.0-1.1 EOSINOPH # (test code = EO#) 0.3 10\\S\\3/uL 0.0-0.7 BASOPHIL # (test code = BA#) 0.0 10\\S\\3/uL 0.0-0.3 IG # (test code = IG#) 0.02 10\\S\\3/uL 0.00-0.06 NRBC # (test code = NRBC#) 0.00 10\\S\\3/uL 0.00-0.01 NEUTROPH % (test code = NE%) 50.0 % 35.0-73.0 LYMPH % (test code = LY%) 36.4 % 20.0-55.0 MONO % (test code = MO%) 8.0 % 2.5-10.0 EOSINOPH % (test code = EO%) 4.5 % 0.0-5.0 BASOPHIL % (test code = BA%) 0.7 % 0.0-2.0 IG % (test code = IG%) 0.4 % 0.0-0.8 NRBC% (test code = NRBC%) 0.0 % 0.0-0.2 MANDIFF (test code = MDIFF) NO NO RBC MORPH (test code = RBCMOR) NORMAL BRAIN NATRIURETIC [id number] 05:06:00 Test Item Value Reference Range Interpretation Comments proBNP (test code = PBNP) 51 pg/mL 0-125 BASIC METABOLIC [id number] 04:55:00 Test Item Value Reference Range Interpretation Comments GLUCOSE (test code = 06D) 107 mg/dL 75-100 H SODIUM (test code = 01A) 142 mmol/L 136-145 POTASSIUM (test code = 01B) 3.9 mmol/L 3.6-5.1 CHLORIDE (test code = 04A) 110 mmol/L 98-107 H CO2 (test code = 02A) 27 mmol/L 22-32 ANION GAP (test code = ANG) 8.9 mmol/L BUN (test code = 05D) 13 mg/dL 7-18 CREATININE (test code = 03E) 0.8 mg/dL 0.7-1.3 BUN/CREA (test code = BCR) 17 12-20 CALCIUM (test code = 09D) 7.8 mg/dL 8.3-9.5 L CBC (INCLUDES AUTOMATED DIFFERENTIAL)2018-11-05 04:39:00 Test Item Value Reference Range Interpretation Comments WBC (test code = WBC) 6.1 10\\S\\3/uL 4.5-11.0 RBC (test code = RBC) 4.46 10\\S\\6/uL 3.80-5.80 HGB (test code = HBG) 13.4 g/dL 14.0-18.0 L HCT (test code = HCT) 40.0 % 35.0-46.0 MCV (test code = MCV) 89.7 fL 80.0-94.0 MCH (test code = MCH) 30.0 pg 27.0-31.0 MCHC (test code = MCHC) 33.5 g/dL 32.0-36.0 RDW (test code = RDW) 12.2 % 11.5-14.5 PLT (test code = PLT) 170 10\\S\\3/uL 130-400 MPV (test code = MPV) 11.5 fL 9.4-12.4 NEUTROP # (test code = NE#) 3.0 10\\S\\3/uL 2.0-8.0 LYMPH # (test code = LY#) 2.1 10\\S\\3/uL 1.2-4.0 MONOCYTE # (test code = MO#) 0.5 10\\S\\3/uL 0.0-1.1 EOSINOPH # (test code = EO#) 0.3 10\\S\\3/uL 0.0-0.7 BASOPHIL # (test code = BA#) 0.1 10\\S\\3/uL 0.0-0.3 IG # (test code = IG#) 0.03 10\\S\\3/uL 0.00-0.06 NRBC # (test code = NRBC#) 0.00 10\\S\\3/uL 0.00-0.01 NEUTROPH % (test code = NE%) 49.7 % 35.0-73.0 LYMPH % (test code = LY%) 35.3 % 20.0-55.0 MONO % (test code = MO%) 8.4 % 2.5-10.0 EOSINOPH % (test code = EO%) 5.3 % 0.0-5.0 H BASOPHIL % (test code = BA%) 0.8 % 0.0-2.0 IG % (test code = IG%) 0.5 % 0.0-0.8 NRBC% (test code = NRBC%) 0.0 % 0.0-0.2 MANDIFF (test code = MDIFF) NO NO RBC MORPH (test code = RBCMOR) NORMAL CARDIAC [id number] 22:59:00 Test Item Value Reference Range Interpretation Comments TROPONIN I (test code = A84) <0.015 ng/mL 0.000-0.045 CARDIAC [id number] 17:28:00 Test Item Value Reference Range Interpretation Comments TROPONIN I (test code = A84) <0.015 ng/mL 0.000-0.045 TROPONIN I i-STAT OW2018-11-04 11:24:00 Test Item Value Reference Range Interpretation Comments TROPONIN I (test code = A84) 0.000 ng/mL 0.000-0.045 XR CHEST 1 VIEW PORTABLE *OW*2018-11-04 11:22:41Portable AP chest, 1 viewLocation Code: [id number] HISTORY: [id number]: Chest painCOMPARISON: 06/23/18C OMMENT: The lungs are well inflated. Questionable minimal infiltrate in the right lungbase. The costophrenic angles are sharp. The cardiomediastinal silhouette isunremarkable. The bones are intact.IMPRESSION: Hyperinflation with minimal right basilar infiltrate medially.CBC (INCLUDES AUTOMATED DIFFERENTIAL) *2018-11-04 11:13:00 Test Item Value Reference Range Interpretation Comments WBC (test code = WBC) 4.6 10\\S\\3/uL 4.5-11.0 RBC (test code = RBC) 4.62 10\\S\\6/uL 3.80-5.80 HGB (test code = HBG) 14.6 g/dL 14.0-18.0 HCT (test code = HCT) 42.5 % 35.0-46.0 MCV (test code = MCV) 92.0 fL 80.0-94.0 MCH (test code = MCH) 31.6 pg 27.0-31.0 H MCHC (test code = MCHC) 34.4 g/dL 32.0-36.0 RDW (test code = RDW) 14.0 % 11.5-14.5 PLT (test code = PLT) 211 10\\S\\3/uL 130-400 MPV (test code = OMPV) 8.7 fL 6.2-10.2 NEUTROP # (test code = NE#) 2.9 10\\S\\3/uL 2.0-8.0 LYMPH # (test code = LY#) 1.4 10\\S\\3/uL 1.2-4.0 MID # (test code = GMID#) 0.3 10\\S\\3/uL 0.0-1.1 GRA % (test code = GRA%) 63.0 % 35.0-73.0 LYMPH % (test code = GLY%) 29.9 % 20.0-55.0 MID % (test code = GMID%) 7.1 % 0.0-10.0 CHEM8+ i-STAT OW2018-11-04 11:13:00 Test Item Value Reference Range Interpretation Comments SODIUM (test code = LEONORA) 144 mmol/L 138-146 POTASSIUM (test code = KI) 3.9 mmol/L 3.5-4.9 CHLORIDE (test code = CLI) 107 mmol/L 98-109 CA IONIZED (test code = ICAI) 1.16 mmol/L 1.12-1.32 GLUCOSE (test code = GLUI) 187 mg/dL 75-100 H TCO2 (test code = TCO2) 28 mmol/L 24-29 BUN (test code = BUN1) 13 mg/dL 8-26 CREATININE (test code = CREAI) 0.8 mg/dL 0.6-1.3 ANION GAP (test code = GANG) 14.0 mmol/L HGB (test code = MHB) 14.6 g/dL 12.0-17.0 HCT (test code = MHCT) 43.0 % 38.0-51.0 TROPONIN I i-STAT OW2018-10-30 20:23:00 Test Item Value Reference Range Interpretation Comments TROPONIN I (test code = A84) 0.000 ng/mL 0.000-0.045 XR WRIST RIGHT COMPLETE 3 VIEWS *OW*2018-10-30 20:19:19AFTER HOURS SERVICE ON: 10/30/2018 8:17 PMRight Wrist, 3 ViewsLocation Code K10Imeajet: Findings:T here is normal anatomic alignment. No fracture, dislocation or avulsionfragments are seen. Mild joint space narrowing noted of the radiocarpal joint.No scapholunate widening. No destructive lesions are seen.Impression:No acute findings.CT HEAD W/O CONTRAST *OW*2018-10-30 20:13:27AFTER HOURS SERVICE ON: 10/30/2018 8:12 PMCT Scan of the Brain Without ContrastLocation Code X87Iqiaphh: [id number]: DizzinessTechnique: Scans were performed on a helical scanner pre IV contrast only. Thestudy is limited secondary to lack of intravenous contrast, particularly forevaluation of masses. CT images were performed within 24 hours at arrival [facility]. One or more of the following dosereduction techniques were used: Automatedexposure control, adjustment of the mA and/or kV according to patient size,and/or utilization of iterative reconstruction technique.Findings: There is no hydrocephalus. Basal cisterns are patent. There is no intracranialhyperdense hemorrhage. There is no midline shift or mass effect. No effacementof the karimi-white matter junction to indicate acute infarction. Mucosalthickening and air-fluid levels are seen in the ethmoid and maxillary sinuses.There is no skull fracture.Impression:No acute intracranial CT findings.Sinusitis.CHEM8+ i-STAT OW2018-10-30 20:12:00 Test Item Value Reference Range Interpretation Comments SODIUM (test code = LEONORA) 146 mmol/L 138-146 POTASSIUM (test code = KI) 3.4 mmol/L 3.5-4.9 L CHLORIDE (test code = CLI) 108 mmol/L 98-109 CA IONIZED (test code = ICAI) 1.15 mmol/L 1.12-1.32 GLUCOSE (test code = GLUI) 125 mg/dL 75-100 H TCO2 (test code = TCO2) 24 mmol/L 24-29 BUN (test code = BUN1) 15 mg/dL 8-26 CREATININE (test code = CREAI) 1.1 mg/dL 0.6-1.3 ANION GAP (test code = GANG) 18.0 mmol/L HGB (test code = MHB) 13.3 g/dL 12.0-17.0 HCT (test code = MHCT) 39.0 % 38.0-51.0 CBC (INCLUDES AUTOMATED DIFFERENTIAL) *2018-10-30 20:10:00 Test Item Value Reference Range Interpretation Comments WBC (test code = WBC) 4.8 10\\S\\3/uL 4.5-11.0 RBC (test code = RBC) 4.33 10\\S\\6/uL 3.80-5.80 HGB (test code = HBG) 14.1 g/dL 14.0-18.0 HCT (test code = HCT) 39.9 % 35.0-46.0 MCV (test code = MCV) 92.1 fL 80.0-94.0 MCH (test code = MCH) 32.6 pg 27.0-31.0 H MCHC (test code = MCHC) 35.3 g/dL 32.0-36.0 RDW (test code = RDW) 12.6 % 11.5-14.5 PLT (test code = PLT) 171 10\\S\\3/uL 130-400 MPV (test code = OMPV) 8.6 fL 6.2-10.2 NEUTROP # (test code = NE#) 2.9 10\\S\\3/uL 2.0-8.0 LYMPH # (test code = LY#) 1.5 10\\S\\3/uL 1.2-4.0 MID # (test code = GMID#) 0.4 10\\S\\3/uL 0.0-1.1 GRA % (test code = GRA%) 61.4 % 35.0-73.0 LYMPH % (test code = GLY%) 30.6 % 20.0-55.0 MID % (test code = GMID%) 8.0 % 0.0-10.0 CBC (INCLUDES AUTOMATED DIFFERENTIAL) *2018-09-03 12:18:00 Test Item Value Reference Range Interpretation Comments WBC (test code = WBC) 4.6 10\\S\\3/uL 4.5-11.0 RBC (test code = RBC) 4.53 10\\S\\6/uL 3.80-5.80 HGB (test code = HBG) 14.4 g/dL 14.0-18.0 HCT (test code = HCT) 42.1 % 35.0-46.0 MCV (test code = MCV) 93.0 fL 80.0-94.0 MCH (test code = MCH) 31.8 pg 27.0-31.0 H MCHC (test code = MCHC) 34.2 g/dL 32.0-36.0 RDW (test code = RDW) 12.6 % 11.5-14.5 PLT (test code = PLT) 162 10\\S\\3/uL 130-400 MPV (test code = OMPV) 8.6 fL 6.2-10.2 NEUTROP # (test code = NE#) 2.7 10\\S\\3/uL 2.0-8.0 LYMPH # (test code = LY#) 1.5 10\\S\\3/uL 1.2-4.0 MID # (test code = GMID#) 0.4 10\\S\\3/uL 0.0-1.1 GRA % (test code = GRA%) 57.9 % 35.0-73.0 LYMPH % (test code = GLY%) 33.3 % 20.0-55.0 MID % (test code = GMID%) 8.8 % 0.0-10.0 INFLUENZA A AND B OW2018-09-03 12:18:00 Test Item Value Reference Range Interpretation Comments INFLUENZ A (test code = INFA) NEGATIVE NEGATIVE INFLUENZ B (test code = INFB) NEGATIVE NEGATIVE XR WRIST LEFT COMPLETE 3 VIEWS *OW*2018-08-20 19:34:26AFTER HOURS SERVICE ON: 08/20/2018 7:33 PMLeft Wrist, 3 ViewsLocation Code [id number]: M25.532: PAININ LEFT WRISTFindings:There is normal anatomic alignment. No fracture, dislocation or avulsionfragments are seen. There is degenerative joint space narrowing of theradiocarpal joint. No scapholunate widening. No destructive lesions are seen.Impression:Degenerative changes of the radiocarpal joint. No fracture.CT ABDOMEN AND PELVIS W/O CONTRAST *OW*2018-07-25 02:06:08CT abdomen and pelvis without contrastLocation Code: [id number] HISTORY: abdominal painCOMPARISON: 07/22/18Technique: Helical CT of the abdomen and pelvis was performed without IV ororal contrast.Thin section axial, sagittal and coronal images were obtained.Automatic exposure control was utilized. FINDINGS:The lung bases are clear with the exception of a 7 mm partially visualizedright lung nodule. A small fat-containing Bochdalek's hernia is noted.. The limited noncontrast appearance of the liver, adrenal glands, kidneys,pancreas, and spleen is unremarkable the exception of multiple too small tocharacterize hepatic hypodensities..The gallbladder is unremarkableThe unopacified loops of bowel demonstrate no evidence of obstruction. Theappendix is visualized and is normal. A large volume of stool is seenthroughout the colon compatible with diagnosis of constipation. Diverticulosisagain noted. Thickening of the bladder wall is again seen, cystitis would have to beexcluded clinicallyThere is no free peritoneal air or fluid. Bilateral fat-containing hernias arenotedNo aggressive osseous lesions are seen. IMPRESSION:Findings Limited in the absence of oral and IV contrast1. A large volume of stool is seen throughout the colon compatible withclinical diagnosis of constipation.2. Thickening of the bladder wall is again seen, cystitis would have to beexcluded clinically3. 7 mm partially visualized right lung nodule, recommend further evaluationwith a [address] follow-up in the absence of a pre-existing cancer diagnosis.4. Additional findings as detailed aboveBRAIN NATRIURETIC PROTEIN OW2018-07-25 00:10:00 Test Item Value Reference Range Interpretation Comments BNP (test code = OBNP) 42 pg/mL 0-50 TROPONIN I i-STAT OW2018-07-25 00:00:00 Test Item Value Reference Range Interpretation Comments TROPONIN I (test code = A84) 0.010 ng/mL 0.000-0.045 CHEM8+ i-STAT OW2018-07-24 23:51:00 Test Item Value Reference Range Interpretation Comments SODIUM (test code = LEONORA) 142 mmol/L 138-146 POTASSIUM (test code = KI) 4.0 mmol/L 3.5-4.9 CHLORIDE (test code = CLI) 105 mmol/L 98-109 CA IONIZED (test code = ICAI) 1.06 mmol/L 1.12-1.32 L GLUCOSE (test code = GLUI) 121 mg/dL 75-100 H TCO2 (test code = TCO2) 29 mmol/L 24-29 BUN (test code = BUN1) 13 mg/dL 8-26 CREATININE (test code = CREAI) 0.9 mg/dL 0.6-1.3 ANION GAP (test code = GANG) 13.0 mmol/L HGB (test code = MHB) 14.3 g/dL 12.0-17.0 HCT (test code = MHCT) 42.0 % 38.0-51.0 URINALYSIS W/O MICROSCOPICOW2018-07-24 23:39:00 Test Item Value Reference Range Interpretation Comments COLOR (test code = DK YELLOW YELLOW A COLU) CLARITY (test code = Clear CLEAR CLA) GLUCOSE UR (test Negative NEGATIVE code = UA GLUCOSE) BILI UR (test code = 1+ NEGATIVE A BILE) KETONES UR (test Trace NEGATIVE code = MARY) SP GRAVITY (test 1.015 1.005-1.030 code = SPGR) PH UR (test code = 7.5 4.5-8.0 PH) PROTEIN UR (test 1+ NEGATIVE A code = PU) NITRITE UR (test Negative NEGATIVE code = NITRITE) UROBIL UR (test code 0.2 E.U./dL = GUROQ) UROBIL UR (test code UROBILINOGEN = GUROQC) REFERENCE RANGE 0.2 - 1.0 EU/dL BLOOD UR (test code Negative NEGATIVE = UA BLOOD) LEUK ES UR (test Negative NEGATIVE code = LEUK) CBC (INCLUDES AUTOMATED DIFFERENTIAL) *2018-07-24 23:37:00 Test Item Value Reference Range Interpretation Comments WBC (test code = WBC) 5.0 10\\S\\3/uL 4.5-11.0 RBC (test code = RBC) 4.89 10\\S\\6/uL 3.80-5.80 HGB (test code = HBG) 14.5 g/dL 14.0-18.0 HCT (test code = HCT) 46.2 % 35.0-46.0 H MCV (test code = MCV) 94.5 fL 80.0-94.0 H MCH (test code = MCH) 29.7 pg 27.0-31.0 MCHC (test code = MCHC) 31.4 g/dL 32.0-36.0 L RDW (test code = RDW) 12.5 % 11.5-14.5 PLT (test code = PLT) 174 10\\S\\3/uL 130-400 MPV (test code = OMPV) 8.4 fL 6.2-10.2 NEUTROP # (test code = NE#) 2.8 10\\S\\3/uL 2.0-8.0 LYMPH # (test code = LY#) 1.8 10\\S\\3/uL 1.2-4.0 MID # (test code = GMID#) 0.4 10\\S\\3/uL 0.0-1.1 GRA % (test code = GRA%) 56.4 % 35.0-73.0 LYMPH % (test code = GLY%) 36.4 % 20.0-55.0 MID % (test code = GMID%) 7.2 % 0.0-10.0 CT ABDOMEN AND PELVIS W/O CONTRAST *OW*2018-07-22 14:01:40EXAM: CT ABDOMEN AND PELVIS WITHOUT IV CONTRASTLocation code: [id number]: 72-year-old male with perium bilical painTECHNIQUE: Contrast - No IV contrast was given. No oral contrast was given Noncontrast phase - abdomen and pelvis Reconstructions - coronal and sagittal planesOne or more of the following dose reduction techniques were used: Automatedexposure control, adjustment of the mA and/or kV according to patient size,and/or utilization of iterative reconstruction technique.COMPARISON: None relevantFINDINGS:Statements: Lack of intravenous contrast compromises evaluation ofabdominopelvic organs and vasculature. 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 No focalpulmonary infiltrate or effusion. Coronary artery calcifications are present.Hepatobiliary: Liver is unremarkableexcept for a couple of small benign cystsmeasuring up to 1.5 cm diameter. The gallbladder is normal.No biliarydilation.Pancreas: Normal. Spleen: Normal. Adrenals: Normal.Genitourinary: The kidneys are normal. There is no evidence of hydronephrosisof either kidney. There is no evidence of renal calculus. Urinary bladder isnondistended but wall appears mildly thickened. No bladder filling defects orcalculi. Prostate gland is mildly enlarged and lobulated. Seminal vesicles areunremarkable.Gastrointestinal: No bowel obstruction or perienteric inflammation. Theappendix is normal. A few colonic diverticula are present. There is a smallhiatal hernia.Vascular: Atherosclerotic calcifications are seen within the aorta and branchvessels. No aneurysm. Lymphatics: No enlarged lymph nodes by CT size criteria.Bones/Soft Tissues: No acute osseous findings. DJD seen in the spine. Noventral hernias.Peritoneum/Other: No free intraperitoneal air. No free intraperitoneal fluid. IMPRESSION: 1. Enlarged prostate.2. Urinary bladder wall thickening. Please correlate for cystitis or chronicbladder obstruction.3. Diverticulosis coli without evidence for acute diverticulitis.4. Appendix is normal.5. Small hiatal hernia.6. No free fluid or free air.CBC (INCLUDES AUTOMATED DIFFERENTIAL) *2018-07-22 12:24:00 Test Item Value Reference Range Interpretation Comments WBC (test code = WBC) 6.0 10\\S\\3/uL 4.5-11.0 RBC (test code = RBC) 4.43 10\\S\\6/uL 3.80-5.80 HGB (test code = HBG) 14.4 g/dL 14.0-18.0 HCT (test code = HCT) 42.3 % 35.0-46.0 MCV (test code = MCV) 95.5 fL 80.0-94.0 H MCH (test code = MCH) 32.5 pg 27.0-31.0 H MCHC (test code = MCHC) 34.0 g/dL 32.0-36.0 RDW (test code = RDW) 12.4 % 11.5-14.5 PLT (test code = PLT) 166 10\\S\\3/uL 130-400 MPV (test code = OMPV) 8.5 fL 6.2-10.2 NEUTROP # (test code = NE#) 3.9 10\\S\\3/uL 2.0-8.0 LYMPH # (test code = LY#) 1.7 10\\S\\3/uL 1.2-4.0 MID # (test code = GMID#) 0.4 10\\S\\3/uL 0.0-1.1 GRA % (test code = GRA%) 64.8 % 35.0-73.0 LYMPH % (test code = GLY%) 28.8 % 20.0-55.0 MID % (test code = GMID%) 6.4 % 0.0-10.0 CHEM8+ i-STAT OW2018-07-22 12:24:00 Test Item Value Reference Range Interpretation Comments SODIUM (test code = LEONORA) 141 mmol/L 138-146 POTASSIUM (test code = KI) 4.5 mmol/L 3.5-4.9 CHLORIDE (test code = CLI) 104 mmol/L 98-109 CA IONIZED (test code = ICAI) 1.15 mmol/L 1.12-1.32 GLUCOSE (test code = GLUI) 164 mg/dL 75-100 H TCO2 (test code = TCO2) 29 mmol/L 24-29 BUN (test code = BUN1) 14 mg/dL 8-26 CREATININE (test code = CREAI) 0.8 mg/dL 0.6-1.3 ANION GAP (test code = GANG) 13.0 mmol/L HGB (test code = MHB) 14.6 g/dL 12.0-17.0 HCT (test code = MHCT) 43.0 % 38.0-51.0 URINALYSIS W/O MICROSCOPICOW2018-07-22 12:24:00 Test Item Value Reference Range Interpretation Comments COLOR (test code = Yellow YELLOW COLU) CLARITY (test code = Clear CLEAR CLA) GLUCOSE UR (test Negative NEGATIVE code = UA GLUCOSE) BILI UR (test code = Negative NEGATIVE BILE) KETONES UR (test Negative NEGATIVE code = MARY) SP GRAVITY (test 1.020 1.005-1.030 code = SPGR) PH UR (test code = 6.0 4.5-8.0 PH) PROTEIN UR (test Negative NEGATIVE code = PU) NITRITE UR (test Negative NEGATIVE code = NITRITE) UROBIL UR (test code 0.2 E.U./dL = GUROQ) UROBIL UR (test code UROBILINOGEN = GUROQC) REFERENCE RANGE 0.2 - 1.0 EU/dL BLOOD UR (test code Negative NEGATIVE = UA BLOOD) LEUK ES UR (test Negative NEGATIVE code = LEUK) COMPREHENSIVE METABOLIC [id number] 08:29:00 Test Item Value Reference Range Interpretation Comments GLUCOSE (test code = 06D) 95 mg/dL 75-100 SODIUM (test code = 01A) 143 mmol/L 136-145 POTASSIUM (test code = 01B) 3.9 mmol/L 3.6-5.1 CHLORIDE (test code = 04A) 112 mmol/L 98-107 H CO2 (test code = 02A) 24 mmol/L 22-32 ANION GAP (test code = ANG) 10.9 mmol/L BUN (test code = 05D) 13 mg/dL 7-18 CREATININE (test code = 03E) 0.8 mg/dL 0.7-1.3 BUN/CREA (test code = BCR) 17 12-20 CALCIUM (test code = 09D) 7.9 mg/dL 8.3-9.5 L BILI TOTAL (test code = 11A) 0.5 mg/dL 0.2-1.0 PROTEIN (test code = 07D) 6.0 g/dL 6.4-8.2 L ALBUMIN (test code = 08D) 3.0 g/dL 3.5-4.8 L GLOBULIN (test code = GLB) 3.0 g/dL 1.5-3.8 ALB/GLOB (test code = AGRR) 1.0 1.0-2.6 ALK PHOS (test code = 35A) 94 IU/L 42-121 AST (test code = 30A) 18 IU/L <=42 ALT (test code = 31A) 29 IU/L <=78 CBC (INCLUDES AUTOMATED DIFFERENTIAL)2018-06-24 08:10:00 Test Item Value Reference Range Interpretation Comments WBC (test code = WBC) 5.3 10\\S\\3/uL 4.5-11.0 RBC (test code = RBC) 4.09 10\\S\\6/uL 3.80-5.80 HGB (test code = HBG) 12.5 g/dL 14.0-18.0 L HCT (test code = HCT) 38.0 % 35.0-46.0 MCV (test code = MCV) 92.9 fL 80.0-94.0 MCH (test code = MCH) 30.6 pg 27.0-31.0 MCHC (test code = MCHC) 32.9 g/dL 32.0-36.0 RDW (test code = RDW) 12.7 % 11.5-14.5 PLT (test code = PLT) 136 10\\S\\3/uL 130-400 MPV (test code = MPV) 11.8 fL 9.4-12.4 NEUTROP # (test code = NE#) 3.0 10\\S\\3/uL 2.0-8.0 LYMPH # (test code = LY#) 1.5 10\\S\\3/uL 1.2-4.0 MONOCYTE # (test code = MO#) 0.4 10\\S\\3/uL 0.0-1.1 EOSINOPH # (test code = EO#) 0.3 10\\S\\3/uL 0.0-0.7 BASOPHIL # (test code = BA#) 0.1 10\\S\\3/uL 0.0-0.3 IG # (test code = IG#) 0.02 10\\S\\3/uL 0.00-0.06 NRBC # (test code = NRBC#) 0.00 10\\S\\3/uL 0.00-0.01 NEUTROPH % (test code = NE%) 57.8 % 35.0-73.0 LYMPH % (test code = LY%) 28.8 % 20.0-55.0 MONO % (test code = MO%) 7.2 % 2.5-10.0 EOSINOPH % (test code = EO%) 4.8 % 0.0-5.0 BASOPHIL % (test code = BA%) 1.0 % 0.0-2.0 IG % (test code = IG%) 0.4 % 0.0-0.8 NRBC% (test code = NRBC%) 0.0 % 0.0-0.2 MANDIFF (test code = MDIFF) NO NO RBC MORPH (test code = RBCMOR) NORMAL TROPONIN I i-STAT OW2018-06-23 18:43:00 Test Item Value Reference Range Interpretation Comments TROPONIN I (test code = A84) 0.020 ng/mL 0.000-0.045 U/S CAROTID COLOR DOPPLER TIBURCIO *OW*2018-06-23 14:13:04CAROTID DOPPLER Location code: [id number] HISTORY: R55: SYNCOPE AND COLLAPSETECHNIQUE: Karimi-scale, color, and duplex sonography of the extracranialcarotid vessels was performed. FINDINGS: Right side: Plaque: Mild plaque is present within the right common carotid.Peak systolic velocities (cm/sec): CCA: 102.5 ICA: 26.4ICA/CCA ratio: 0.6Vertebral artery: AntegradeLeft side: Plaque: Mild plaque is present within the left common carotid artery.Peak systolic velocities (cm/sec): CCA: 109.5 ICA: 66.1ICA/CCA ratio:0.6Vertebral artery: AntegradeIMPRESSION: Mild carotid atherosclerotic disease with nodirect or indirect sonographicevidence of hemodynamically significant (greater than 50%) stenosis.THYROID PANEL/SCREEN (TSH)2018-06-23 13:58:00 Test Item Value Reference Range Interpretation Comments TSH (test code = A57) 1.330 uIU/mL 0.358-3.740 BRAIN NATRIURETIC [id number] 13:51:00 Test Item Value Reference Range Interpretation Comments proBNP (test code = PBNP) 63 pg/mL 0-125 ALCOHOL BLOOD (ETOH)2018-06-23 13:47:00 Test Item Value Reference Range Interpretation Comments ETOH (test code = HALC) ETHANOL The result is to be used only for medical purposes ALCOHOL (test code = <10 mg/dL <=10 56A) [id number] 13:46:00 Test Item Value Reference Range Interpretation Comments MAGNESIUM (test code = 48A) 2.3 mg/dL 1.8-2.4 CARDIAC [id number] 13:46:00 Test Item Value Reference Range Interpretation Comments TROPONIN I (test code = A84) <0.015 ng/mL 0.000-0.045 CKMB (test code = A49) 2.2 ng/mL <=3.6 CPK (test code = 32A) 87 IU/L 39-308 AMYLASE AND [id number] 13:42:00 Test Item Value Reference Range Interpretation Comments AMYLASE (test code = 10A) 104 U/L 28-100 H LIPASE (test code = 60A) 175 IU/L 73-393 COMPREHENSIVE METABOLIC [id number] 13:42:00 Test Item Value Reference Range Interpretation Comments GLUCOSE (test code = 06D) 92 mg/dL 75-100 SODIUM (test code = 01A) 141 mmol/L 136-145 POTASSIUM (test code = 01B) 4.0 mmol/L 3.6-5.1 CHLORIDE (test code = 04A) 109 mmol/L 98-107 H CO2 (test code = 02A) 24 mmol/L 22-32 ANION GAP (test code = ANG) 12.0 mmol/L BUN (test code = 05D) 13 mg/dL 7-18 CREATININE (test code = 03E) 0.8 mg/dL 0.7-1.3 BUN/CREA (test code = BCR) 16 12-20 CALCIUM (test code = 09D) 8.5 mg/dL 8.3-9.5 BILI TOTAL (test code = 11A) 0.4 mg/dL 0.2-1.0 PROTEIN (test code = 07D) 7.2 g/dL 6.4-8.2 ALBUMIN (test code = 08D) 3.7 g/dL 3.5-4.8 GLOBULIN (test code = GLB) 3.5 g/dL 1.5-3.8 ALB/GLOB (test code = AGRR) 1.1 1.0-2.6 ALK PHOS (test code = 35A) 109 IU/L 42-121 AST (test code = 30A) 21 IU/L <=42 ALT (test code = 31A) 34 IU/L <=78 PRO TIME AND [id number] 13:41:00 Test Item Value Reference Range Interpretation Comments PT (test code = 10.2 s 9.8-13.6 TT) INR (test code = 0.9 INR) INRH (test code = SUGGESTED INRH) THERAPEUTIC RANGE FOR INR: 2.5 - 3.5 For Patients with Prosthetic Valves or Patients with recurrent Thromboembolic Events 2.0 - 3.0 For Most Other Applications PTT (test code = 25.7 s 20.2-38.0 PTT) PTTH (test code = To monitor the PTTH) effectiveness of heparin, we offer the Anti-Xa (Heparin Assay). It can be used for either unfractionated or LMW Heparin. Order Code is ANTI-XA URINALYSIS WITH [id number] 13:37:00 Test Item Value Reference Range Interpretation Comments COLOR (test code = COLU) YELLOW YELLOW CLARITY (test code = CLA) CLEAR CLEAR GLUCOSE UR (test code = UA GLUCOSE) NEGATIVE NEGATIVE BILI UR (test code = BILE) NEGATIVE NEGATIVE KETONES UR (test code = MARY) NEGATIVE NEGATIVE SP GRAVITY (test code = SPGR) 1.022 1.005-1.030 PH UR (test code = PH) 5.5 4.5-8.0 PROTEIN UR (test code = PU) NEGATIVE NEGATIVE UROBIL UR (test code = UROQ) 0.2 EU/dL 0.2-1.0 NITRITE UR (test code = NITRITE) NEGATIVE NEGATIVE BLOOD UR (test code = UA BLOOD) NEGATIVE NEGATIVE LEUK ES UR (test code = LEUK) TRACE NEGATIVE A WBC UR (test code = UWBC) 2 /HPF 0-3 RBC UR (test code = URBC) 1 /HPF 0-2 EPITH UR (test code = UEPC) FEW /LPF NONE A BACTERIA UR (test code = UBACT) FEW /HPF NONE A CAST UR (test code = CAST) /LPF NONE CRYSTAL UR (test code = CRYU) / LPF NONE MUCUS UR (test code = MUC) / HPF NONE AMORPH UR (test code = DINO) / HPF NONE TRICH UR (test code = UTRICH) /HPF NONE YEAST UR (test code = UY) /HPF NONE SPERM UR (test code = USPERM) /HPF NONE DRUGS OF [id number] 13:36:00 Test Item Value Reference Range Interpretation Comments DRUG SCRN (test code URINE DRUG SCREEN = HDOA) This is an unconfirmed screening result and should not be used for non-medical purposes CANNABINOD (test code POSITIVE NEGATIVE A = 88C) AMPHETAMINE (test Negative NEGATIVE code = 84A) BENZODIAZP (test code Negative NEGATIVE = 86A) BARBITURAT (test code Negative NEGATIVE = 85A) OPIATES (test code = Negative NEGATIVE 92B) COCAINE (test code = Negative NEGATIVE 87A) PHENCYCLID (test code Negative NEGATIVE = 66A) METHADONE (test code Negative NEGATIVE = 64A) DOAH (test code = DOAH) *URINE DRUG SCREEN Cut-off values are as follows: Cannabinoids 50 ng/mL Cocaine 300 ng/mL Amphetamines 1000 ng/mL Phencyclidine 25 ng/mL Benzodiazepines 200 ng.mL Methadone 300 ng/mL Barbiturates 200 ng/mL Opiates 2000 ng/mL CBC (INCLUDES AUTOMATED DIFFERENTIAL)2018-06-23 13:22:00 Test Item Value Reference Range Interpretation Comments WBC (test code = WBC) 7.9 10\\S\\3/uL 4.5-11.0 RBC (test code = RBC) 4.74 10\\S\\6/uL 3.80-5.80 HGB (test code = HBG) 14.6 g/dL 14.0-18.0 HCT (test code = HCT) 43.2 % 35.0-46.0 MCV (test code = MCV) 91.1 fL 80.0-94.0 MCH (test code = MCH) 30.8 pg 27.0-31.0 MCHC (test code = MCHC) 33.8 g/dL 32.0-36.0 RDW (test code = RDW) 12.6 % 11.5-14.5 PLT (test code = PLT) 178 10\\S\\3/uL 130-400 MPV (test code = MPV) 11.5 fL 9.4-12.4 NEUTROP # (test code = NE#) 5.4 10\\S\\3/uL 2.0-8.0 LYMPH # (test code = LY#) 1.7 10\\S\\3/uL 1.2-4.0 MONOCYTE # (test code = MO#) 0.5 10\\S\\3/uL 0.0-1.1 EOSINOPH # (test code = EO#) 0.2 10\\S\\3/uL 0.0-0.7 BASOPHIL # (test code = BA#) 0.1 10\\S\\3/uL 0.0-0.3 IG # (test code = IG#) 0.02 10\\S\\3/uL 0.00-0.06 NRBC # (test code = NRBC#) 0.00 10\\S\\3/uL 0.00-0.01 NEUTROPH % (test code = NE%) 68.4 % 35.0-73.0 LYMPH % (test code = LY%) 21.6 % 20.0-55.0 MONO % (test code = MO%) 6.7 % 2.5-10.0 EOSINOPH % (test code = EO%) 2.4 % 0.0-5.0 BASOPHIL % (test code = BA%) 0.6 % 0.0-2.0 IG % (test code = IG%) 0.3 % 0.0-0.8 NRBC% (test code = NRBC%) 0.0 % 0.0-0.2 MANDIFF (test code = MDIFF) NO NO RBC MORPH (test code = RBCMOR) NORMAL TROPONIN I i-STAT OW2018-06-23 13:03:00 Test Item Value Reference Range Interpretation Comments TROPONIN I (test code = A84) 0.000 ng/mL 0.000-0.045 URINALYSIS W/O MICROSCOPICOW2018-06-23 12:54:00 Test Item Value Reference Range Interpretation Comments COLOR (test code = Yellow YELLOW COLU) CLARITY (test code = Clear CLEAR CLA) GLUCOSE UR (test Negative NEGATIVE code = UA GLUCOSE) BILI UR (test code = Negative NEGATIVE BILE) KETONES UR (test Negative NEGATIVE code = MARY) SP GRAVITY (test >=1.030 1.005-1.030 code = SPGR) PH UR (test code = 6.0 4.5-8.0 PH) PROTEIN UR (test Negative NEGATIVE code = PU) NITRITE UR (test Negative NEGATIVE code = NITRITE) UROBIL UR (test code 0.2 E.U./dL = GUROQ) UROBIL UR (test code UROBILINOGEN = GUROQC) REFERENCE RANGE 0.2 - 1.0 EU/dL BLOOD UR (test code Negative NEGATIVE = UA BLOOD) LEUK ES UR (test Trace NEGATIVE code = LEUK) CK MB i-STAT OW2018-06-23 12:52:00 Test Item Value Reference Range Interpretation Comments CKMB (test code = A49) 4.2 ng/mL <=3.6 HH CHEM8+ i-STAT OW2018-06-23 12:44:00 Test Item Value Reference Range Interpretation Comments SODIUM (test code = LEONORA) 143 mmol/L 138-146 POTASSIUM (test code = KI) 3.8 mmol/L 3.5-4.9 CHLORIDE (test code = CLI) 106 mmol/L 98-109 CA IONIZED (test code = ICAI) 1.17 mmol/L 1.12-1.32 GLUCOSE (test code = GLUI) 103 mg/dL 75-100 H TCO2 (test code = TCO2) 24 mmol/L 24-29 BUN (test code = BUN1) 12 mg/dL 8-26 CREATININE (test code = CREAI) 0.9 mg/dL 0.6-1.3 ANION GAP (test code = GANG) 17.0 mmol/L HGB (test code = MHB) 14.6 g/dL 12.0-17.0 HCT (test code = MHCT) 43.0 % 38.0-51.0 PROTHROMBIN TIME i-STAT OW2018-06-23 12:43:00 Test Item Value Reference Range Interpretation Comments PT (test code = 11.2 s 10.0-13.0 PT1) INR (test code = 0.9 INR) INRH (test code = SUGGESTED INRH) THERAPEUTIC RANGE FOR INR: 2.5 - 3.5 For Patients with Prosthetic Valves or Patients with recurrent Thromboembolic Events 2.0 - 3.0 For Most Other Applications XR HAND LEFT COMPLETE 3 VIEWS 2018-06-23 12:39:49Left hand, 3 viewsLocation code: [id number] HISTORY: Traumatic injuryCOMMENTS: AP, lateral, and oblique views of the left hand demonstrate no acutefracture or malalignment. The soft tissues are unremarkable.IMPRESSION: No acute radiographic abnormality.XR WRIST LEFT COMPLETE 3 VIEWS *OW*2018-06-23 12:39:01Left wrist, 3 viewsLocation Code: [id number] HISTORY: R55: SYNCOPE AND COLLAPSE, Traumatic injuryCOMPARISON: None.COMMENTS: AP, lateral, and oblique views of the left wrist demonstrate no acutefractureor malalignment. The soft tissues are unremarkable.IMPRESSION: No acute radiographic abnormality.XR CHEST 2 VIEW 2018-06-23 12:38:09PA and lateral chest, 2 views.Location code: [id number] HISTORY: R55: SYNCOPE AND COLLAPSECOMPARISON: NoneCOMMENTS: Mild atelectasis and/or scarring is present within the lung bases.The lungs are otherwise clear and well inflated. The cardiomediastinalsilhouette is unremarkable. The bones are intact.IMPRESSION: Mild bibasilar atelectasis and/or scarring. Otherwise, no acuteabnormality.CT HEAD W/O CONTRAST 2018-06-23 12:24:47Exam: CT head without contrast.Location: [id number]: R55: SYNCOPE AND COLLAPSETechnique: Unenhanced sp iral slices were taken from the base of the skull,through the vertex. One or more of the following radiation dose reductiontechniques was used: automated exposure control, adjustment of mA and/or KVaccording to patient size, and/or utilization of iterative reconstructiontechnique.Findings:No acute intracranial abnormality is identified. Mild, diffuse cerebral atrophyis present. The brain parenchyma and the CSF spaces are otherwise unremarkable.No mass, midline shift, hemorrhage, hydrocephalus or edema is seen. Thevisualized paranasal sinuses are clear. The mastoid air cells are wellpneumatized. Thebony calvarium is intact.Impression:1. No acute intracranial abnormality.2. Atrophy.XR SPINE LUMBAR COMPLETE *OW*2018-06-07 10:19:67B4FZZX OF STUDY: 06/07/2018 9:43 AMREASON FOR EXAM: R52: PAIN, UNSPECIFIED COMPARISON: None. FINDINGS: 5 views of the lumbar spine were obtained. There is some disc heightloss and marginal osteophytes seen at L2-3 and L3-4. Vertebral body heights andalignment are normal. No evidence of an acute fracture, dislocation or otherbony abnormalities are identified. No large paravertebral masses are seen. IMPRESSION: 1. No acute bony abnormality of the lumbar spine.2. Mild degenerative disc disease at L2-3 and L3-4. Please note that MRI is randa sensitive modality for evaluation of disk pathology and spinal canal softtissue. CHEM8+ i-STAT OW2018-06-07 10:08:00 Test Item Value Reference Range Interpretation Comments SODIUM (test code = LEONORA) 142 mmol/L 138-146 POTASSIUM (test code = KI) 3.9 mmol/L 3.5-4.9 CHLORIDE (test code = CLI) 107 mmol/L 98-109 CA IONIZED (test code = ICAI) 1.18 mmol/L 1.12-1.32 GLUCOSE (test code = GLUI) 121 mg/dL 75-100 H TCO2 (test code = TCO2) 25 mmol/L 24-29 BUN (test code = BUN1) 11 mg/dL 8-26 CREATININE (test code = CREAI) 0.7 mg/dL 0.6-1.3 ANION GAP (test code = GANG) 15.0 mmol/L CBC (INCLUDES AUTOMATED DIFFERENTIAL) *2018-06-07 10:04:00 Test Item Value Reference Range Interpretation Comments WBC (test code = WBC) 5.2 10\\S\\3/uL 4.5-11.0 RBC (test code = RBC) 4.70 10\\S\\6/uL 3.80-5.80 HGB (test code = HBG) 14.2 g/dL 14.0-18.0 HCT (test code = HCT) 43.7 % 35.0-46.0 MCV (test code = MCV) 92.9 fL 80.0-94.0 MCH (test code = MCH) 30.2 pg 27.0-31.0 MCHC (test code = MCHC) 32.5 g/dL 32.0-36.0 RDW (test code = RDW) 13.0 % 11.5-14.5 PLT (test code = PLT) 182 10\\S\\3/uL 130-400 MPV (test code = MPV) 8.2 fL 9.4-12.4 L NEUTROP # (test code = NE#) 2.9 10\\S\\3/uL 2.0-8.0 LYMPH # (test code = LY#) 1.9 10\\S\\3/uL 1.2-4.0 MID # (test code = GMID#) 0.4 10\\S\\3/uL 0.0-1.1 GRA % (test code = GRA%) 56.1 % 35.0-73.0 LYMPH % (test code = GLY%) 36.1 % 20.0-55.0 MID % (test code = GMID%) 7.8 % 0.0-10.0
[2021-03-21] MEDS ORDERED: NA CHLORIDE 0.9% 500 ML ONE (12:10)
[2021-03-21] MEDS ORDERED: KETOROLAC 30 MG/ML INJ ONE (12:10)
[2021-03-21 12:19] LABS: Potassium 3.9 mmol/L (3.5-5.1)
--- NOTE | 2021-03-21 12:28 | RAD REPORT ---
EXAM DESCRIPTION: US - Extremity Venous Uni Ltd - 03/21/2021 12:17 pm CLINICAL HISTORY: PAIN Leg swelling and edema. COMPARISON: No comparisons FINDINGS: Right lower extremity venous system was interrogated with Doppler technique. Normal flow, compressibility and augmentation was noted. There is no DVT present. IMPRESSION: No evidence of right lower extremity deep venous thrombosis.
[2021-03-21 12:32] LABS: Absolute Lymphocytes (CBC) 1.7 K/uL (0.7-4.9); Basophils % 1.2 % (0-1.3); Hematocrit 39.3 % (39.6-49.0); Lymphocytes % 35.8 % (15.3-44.8); MPV 9.3 fL (7.6-11.3); RBC Red Blood Cell Count 4.42 M/uL (4.33-5.43)
--- NOTE | 2021-03-21 13:05 | RAD REPORT ---
EXAM DESCRIPTION: RAD - Knee Right 3 View - 03/21/2021 12:38 pm CLINICAL HISTORY: PAIN COMPARISON: No comparisons FINDINGS: Moderate tricompartmental osteoarthritis is present. No acute fracture or dislocation is s een. No joint effusion.
--- NOTE | 2021-03-21 13:41 | EDPHYS ---
Physician Documentation [facility] Name: Anatoliy Dc Age: 75 yrs Sex: Male : 1945 Arrival Date: 03/21/2021 Time: 10:50 Bed 19 Private MD: ED Physician Lm Law HPI: 03/21 11:34 This 75 yrs old Male presents to ER via Ambulatory with complaints of Knee phillip Pain, Leg Pain. 11:34 The patient presents with decreased range of motion, pain, tenderness. The complaints phillip affect the right knee. Context: The problem was sustained at an unknown site. Onset: The symptoms/episode began/occurred 6 month(s) ago. Modifying factors: The symptoms are alleviated by nothing. remaining still, the symptoms are aggravated by weight bearing, bending knee. Associated signs and symptoms: The patient has no apparent associated signs or symptoms. Treatment prior to arrival includes: no previous treatment. Severity of symptoms: At their worst the symptoms were moderate, in the emergency department the symptoms are unchanged. The patient has not experienced similar symptoms in the past. Historical: - Allergies: 10:57 Iodine; jd3 - Home Meds: 10:57 tamsulosin oral oral [Active]; jd3 - PMHx: 10:57 Asthma; BPH; jd3 - Immunization history:: Adult Immunizations up to date. - Social history:: Smoking status: Patient denies any tobacco usage or history of. - Family history:: not pertinent. ROS: 11:34 Constitutional: Negative for fever, chills, and weight loss, Eyes: Negative for injury, phillip pain, redness, and discharge, ENT: Negative for injury, pain, and discharge, Neck: Negative for injury, pain, and swelling, Cardiovascular: Negative for chest pain, palpitations, and edema, Respiratory: Negative for shortness of breath, cough, wheezing, and pleuritic chest pain, Abdomen/GI: Negative for abdominal pain, nausea, vomiting, diarrhea, and constipation, Back: Negative for injury and pain, : Negative for injury, bleeding, discharge, and swelling, Skin: Negative for injury, rash, and discoloration, Neuro: Negative for headache, weakness, numbness, tingling, and seizure, Psych: Negative for depression, anxiety, suicide ideation, homicidal ideation, and hallucinations, Allergy/Immunology: Negative for hives, rash, and allergies, Endocrine: Negative for neck swelling, polydipsia, polyuria, polyphagia, and marked weight changes, Hematologic/Lymphatic: Negative for swollen nodes, abnormal bleeding, and unusual bruising. 11:34 MS/extremity: Positive for decreased range of motion, pain, of the right knee. Exam: 11:34 Constitutional: This is a well developed, well nourished patient who is awake, alert, phillip and in no acute distress. Head/Face: Normocephalic, atraumatic. Eyes: Pupils equal round and reactive to light, extra-ocular motions intact. Lids and lashes normal. Conjunctiva and sclera are non-icteric and not injected. Cornea within normal limits. Periorbital areas with no swelling, redness, or edema. ENT: Nares patent. No nasal discharge, no septal abnormalities noted. Tympanic membranes are normal and external auditory canals are clear. Oropharynx with no redness, swelling, or masses, exudates, or evidence of obstruction, uvula midline. Mucous membranes moist. Neck: Trachea midline, no thyromegaly or masses palpated, and no cervical lymphadenopathy. Supple, full range of motion without nuchal rigidity, or vertebral point tenderness. No Meningismus. Chest/axilla: Normal chest wall appearance and motion. Nontender with no deformity. No lesions are appreciated. Cardiovascular: Regular rate and rhythm with a normal S1 and S2. No gallops, murmurs, or rubs. Normal PMI, no JVD. No pulse deficits. Respiratory: Lungs have equal breath sounds bilaterally, clear to auscultation and percussion. No rales, rhonchi or wheezes noted. No increased work of breathing, no retractions or nasal flaring. Abdomen/GI: Soft, non-tender, with normal bowel sounds. No distension or tympany. No guarding or rebound. No evidence of tenderness throughout. Back: No spinal tenderness. No costovertebral tenderness. Full range of motion. Male : Normal genitalia with no discharge or lesions. Skin: Warm, dry with normal turgor. Normal color with no rashes, no lesions, and no evidence of cellulitis. Neuro: Awake and alert, GCS 15, oriented to person, place, time, and situation. Cranial nerves II-XII grossly intact. Motor strength 5/5 in all extremities. Sensory grossly intact. Cerebellar exam normal. Normal gait. Psych: Awake, alert, with orientation to person, place and time. Behavior, mood, and affect are within normal limits. 11:34 Musculoskeletal/extremity: Extremities: grossly normal except: noted in the right knee: decreased ROM, pain, ROM: full active range of motion, full passive range of motion, Circulation is intact in all extremities. Sensation intact. Compartment Syndrome exam of affected extremity: is normal. Joints: All joints are normal except pain at rest, painful range of motion, tenderness, DVT Exam: no swelling, negative Homans' sign noted on exam, no appreciated bluish discoloration, no erythema, no increased warmth, pain, tenderness. Vital Signs: 10:57 BP 130 / 86; Pulse 96; Resp 18 S; Temp 98.0(TE); Pulse Ox 99% on R/A; Weight 88.9 kg jd3 (R); Height 5 ft. 9 in. (175.26 cm) (R); Pain 10/10; 14:25 BP 121 / 78; Pulse 81; Resp 17; Pulse Ox 99% ; ll1 10:57 Body Mass Index 28.94 (88.90 kg, 175.26 cm) jd3 MDM: 10:58 Patient medically screened. [facility] 11:37 Differential diagnosis: closed fracture, contusion, tendonitis. Data reviewed: vital phillip signs, nurses notes, lab test result(s), radiologic studies, doppler, plain films. Data interpreted: lunchroom monitor: rate is 96 beats/min, rhythm is regular, Pulse oximetry: on room air. Test interpretation: by ED physician or midlevel provider: plain radiologic studies. 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 03/21 11:34 Order name: CBC with Diff; Complete Time: 13:33 [facility] 03/21 11:34 Order name: Chem 7; Complete Time: 13:33 [facility] 03/21 11:34 Order name: Knee Right 3 View XRAY; Complete Time: 13:33 [facility] 03/21 11:34 Order name: US Extremity Venous Unilateral Ltd; Complete Time: 13:33 [facility] 03/21 11:34 Order name: Knee Immobilizer; Complete Time: 15:23 [facility] 03/21 11:34 Order name: Ice pack; Complete Time: 11:43 [facility] Administered Medications: 12:20 Drug: NS 0.9% 500 ml Route: IV; Rate: bolus; Site: right forearm; ll1 14:26 Follow up: Response: No adverse reaction; IV Status: Completed infusion; IV Intake: ll1 500ml 12:20 Drug: TORadol (ketorolac) 30 mg Route: IVP; Site: right forearm; ll1 14:26 Follow up: Response: No adverse reaction; Pain is decreased; RASS: Alert and Calm (0) ll1 Disposition: 03/21/21 13:40 Discharged to Home. Impression: Pain in right knee, Osteoarthritis of knee - tricompartment. - Condition is Stable. - Discharge Instructions: Joint Pain, Arthritis, How to Use a Knee Brace, Musculoskeletal Pain, Knee Pain, Cryotherapy, Knee Pain, [id number], Joint Pain, [id number]. - Prescriptions for Ibuprofen 600 mg Oral Tablet - take 1 tablet by ORAL route every 8 hours As needed take with food; 21 tablet. Tramadol 50 mg Oral Tablet - take 1 tablet by ORAL route every 8 hours as needed; 26 tablet. - Medication Reconciliation Form, Thank You Letter, Antibiotic Education, Prescription Opioid Use form. - Follow up: Private Physician; When: 2 - 3 days; Reason: Recheck today's complaints, Continuance of care, Re-evaluation by your physician. Follow up: Jeffery Bowles MD; When: 2 - 3 days; Reason: Recheck today's complaints, Continuance of care, Re-evaluation by your physician. - Problem is new. - Symptoms have improved. Signatures: Dispatcher [employer] EDOH Lm Law MD MD cha Davies, Jonathon, RN RN Nader Tolbert RN RN ll1 Corrections: (The following items were deleted from the chart) 14:27 13:40 03/21/2021 13:40 Discharged to Home. Impression: Pain in right knee; ll1 Osteoarthritis of knee - tricompartment. Condition is Stable. Forms are Medication Reconciliation Form, Thank You Letter, Antibiotic Education, Prescription Opioid Use. Follow up: Private Physician; When: 2 - 3 days; Reason: Recheck today's complaints, Continuance of care, Re-evaluation by your physician. Follow up: Dr. Jeffery Bowles; When: 2 - 3 days; Reason: Recheck today's complaints, Continuance of care, Re-evaluation by your physician. Problem is new. Symptoms have improved. phillip
--- NOTE | 2021-03-21 13:41 | ER ---
Nurse's Notes [facility] Name: Anatoliy Dc Age: 75 yrs Sex: Male : 1945 Arrival Date: 03/21/2021 Time: 10:50 Bed 19 Private MD: Diagnosis: Pain in right knee;Osteoarthritis of knee-tricompartment Presentation: 03/21 10:55 Chief complaint: Patient states: "My right knee is hurting me pretty bad. I have been jd3 needing a knee replacement, but it cost to much money.". Coronavirus screen: At this time, the client does not indicate any symptoms associated with coronavirus-19. Ebola Screen: Patient negative for fever greater than or equal to 101.5 degrees Fahrenheit, and additional compatible Ebola Virus Disease symptoms. Initial Sepsis Screen: Does the patient meet any 2 criteria? No. Patient's initial sepsis screen is negative. Does the patient have a suspected source of infection? No. Patient's initial sepsis screen is negative. Risk Assessment: Do you want to hurt yourself or someone else? Patient reports no desire to harm self or others. Onset of symptoms was March 21, 2021. 10:55 Method Of Arrival: Ambulatory jd3 10:55 Acuity: FATEMEH 4 jd3 Historical: - Allergies: 10:57 Iodine; jd3 - Home Meds: 10:57 tamsulosin oral oral [Active]; jd3 - PMHx: 10:57 Asthma; BPH; jd3 - Immunization history:: Adult Immunizations up to date. - Social history:: Smoking status: Patient denies any tobacco usage or history of. - Family history:: not pertinent. Screenin:31 Abuse screen: Denies threats or abuse. Nutritional screening: No deficits noted. ll1 Tuberculosis screening: No symptoms or risk factors identified. 11:58 Fall Risk IV access (20 points). Gait- Weak (10 pts.). Total Diaz Fall Scale indicates ll1 Low Risk Score (25-44 pts). Fall prevention measures have been instituted. Side Rails Up X 2 Frequent Obs/Assesments occuring As available Patient and Family Educated on Fall Prevention Program and strategies. Assessment: 11:30 General: Appears in no apparent distress. Behavior is calm, cooperative, appropriate ll1 for age. Pain: Complains of pain in R knee Quality of pain is described as aching. Neuro: No deficits noted. Cardiovascular: No deficits noted. Musculoskeletal: Circulation, motion, and sensation intact. Capillary refill < 3 seconds, Range of motion: intact in all extremities, Tenderness present in R knee Reports pain in R knee. 12:30 Reassessment: No changes from previously documented assessment. Patient and/or family ll1 updated on plan of care and expected duration. Pain level reassessed. 13:30 Reassessment: No changes from previously documented assessment. Patient and/or family ll1 updated on plan of care and expected duration. Pain level reassessed. 14:25 Musculoskeletal: Circulation, motion, and sensation intact. Capillary refill < 3 ll1 seconds, Range of motion: intact in all extremities. Vital Signs: 10:57 BP 130 / 86; Pulse 96; Resp 18 S; Temp 98.0(TE); Pulse Ox 99% on R/A; Weight 88.9 kg jd3 (R); Height 5 ft. 9 in. (175.26 cm) (R); Pain 10/10; 14:25 BP 121 / 78; Pulse 81; Resp 17; Pulse Ox 99% ; ll1 10:57 Body Mass Index 28.94 (88.90 kg, 175.26 cm) jd3 ED Course: 10:50 Patient arrived in ED. am2 10:56 Triage completed. jd3 10:57 Arm band placed on. jd3 10:58 Lm Law MD is Attending Physician. phillip 11:30 Nader Anderson, TRISTIN is Primary Nurse. ll1 11:31 Patient has correct armband on for positive identification. Bed in low position. Call ll1 light in reach. Side rails up X 1. Cardiac monitoring not applicable on this patient. 11:50 Inserted saline lock: 20 gauge in right forearm, using aseptic technique. Blood ll1 collected. 12:17 US Extremity Venous Unilateral Ltd In Process Unspecified. EDMS 12:39 Knee Right 3 View XRAY In Process Unspecified. EDMS 13:38 Jeffery Bowles MD is Referral Physician. phillip 14:20 Knee immobilizer applied on right knee. ll1 14:25 No provider procedures requiring assistance completed. IV discontinued, intact, ll1 bleeding controlled, No redness/swelling at site. Pressure dressing applied. Administered Medications: 12:20 Drug: NS 0.9% 500 ml Route: IV; Rate: bolus; Site: right forearm; ll1 14:26 Follow up: Response: No adverse reaction; IV Status: Completed infusion; IV Intake: ll1 500ml 12:20 Drug: TORadol (ketorolac) 30 mg Route: IVP; Site: right forearm; ll1 14:26 Follow up: Response: No adverse reaction; Pain is decreased; RASS: Alert and Calm (0) ll1 Intake: 14:26 IV: 500ml; Total: 500ml. ll1 Outcome: 13:40 Discharge ordered by MD. fisher 14:27 Patient left the ED. ll1 14:27 Discharged to home ambulatory. ll1 14:27 Condition: stable 14:27 Discharge instructions given to patient, Instructed on discharge instructions, follow up and referral plans. medication usage, Demonstrated understanding of instructions, follow-up care, medications, splint care, Prescriptions given X 2. Signatures: Dispatcher [employer] Lm De La Rosa MD MD cha Moreno, Amanda am2 Davies, Jonathon, RN RN jNader Smart RN RN ll1
[2021-03-21 14:33] VITALS: BP 130/86; TEMP 98; O2SAT 99
== END 2021-03-21 14:27 | disposition home or self-care (01) ==
LOC: ER 10:48
DX: M17.11 Unilateral primary osteoarthritis, right knee (principal); J45.909 Unspecified asthma, uncomplicated; N40.0 Benign prostatic hyperplasia without lower urinary tract symptoms
CPT/HCPCS: 96361; 85025; 80048; 36415; 73562; 93971; 96374; 99284; J7040